=== PATIENT | female | born 1960 | race Caucasian/White ===

== ENCOUNTER 2019-10-30 15:11 | Outpatient (CLI) | payer OTHER, SELFPAY ==
[2019-10-30 15:58] LABS: Basophils Absolute Auto 0.1 K/mm3 (0.0-0.1); Basophils Percent Auto 1.1 % (0.2-1.2); Eosinophils Absolute Auto 0.3 K/mm3 (0-0.3); Eosinophils Percent Auto 5.5 % (0-4.4); Hematocrit 39.9 % (37.0-47.0); Hemoglobin 13.2 g/dL (12.0-15.0); Immature Granulocyte Absolute 0.01 K/mm3 (0.00-0.031); Immature Granulocyte Percent A 0.2 % (0-0.5); Lymphocytes Absolute Auto 1.25 K/mm3 (0.9-3.2); Lymphocytes Percent Auto 27.7 % (18.3-44.2); Mean Corpuscular HGB Conc 33.1 g/dl (32-36); Mean Corpuscular Hemoglobin 30.8 pg (26-34); Mean Corpuscular Volume 93.2 fl (80-100); Mean Platelet Volume 10.5 fl (7.4-10.4); Monocytes Absolute Auto 0.4 K/mm3 (0.1-0.6); Monocytes Percent Auto 7.8 % (2.6-8.5); Neutrophils Absolute Auto 2.6 K/mm3 (1.3-6.7); Neutrophils Percent Auto 57.7 % (45.5-73.1); Platelet Count Result 194 k/mm3 (150-375); Red Blood Count 4.28 M/mm3 (4.2-5.4); Red Cell Distribution Width 13.7 % (11.5-14.5); White Blood Count 4.5 K/mm3 (4.5-10.0)
[2019-10-30 16:46] LABS: Alanine Aminotransferase 15 U/L (4-35); Albumin Level 4.3 g/dL (3.5-5.1); Alkaline Phosphatase 82 U/L (38-126); Aspartate Amino Transferase 32 U/L (14-36); Bilirubin,Total 0.7 mg/dL (0.2-1.3); Blood Urea Nitrogen 22 mg/dL (7-17); Calcium 9.6 mg/dL (8.4-10.2); Carbon Dioxide 24 mmol/L (22-30); Chloride 107 mmol/L (98-107); Estimated Glomerular Filt Rate 56; Glucose 96 mg/dL (65-105); Potassium 4.4 mmol/L (3.4-5.0); Sodium 138 mmol/L (137-145)
[2019-11-02 06:44] LABS: CA 27.29 21 U/mL (<38)
== END 2019-10-30 15:12 | disposition home or self-care (01) ==
LOC: ANHLAB 15:16
PROVIDERS: PCP Family Medicine; Visit Provider Internal Medicine Hematology & Oncology
DX: C50.412 Malignant neoplasm of upper-outer quadrant of left female breast (principal); Z17.0 Estrogen receptor positive status [ER+]
CPT/HCPCS: 36415; 80053; 85025; 86300

== ENCOUNTER → 2020-03-03 10:21 | Outpatient (CLI) | payer OTHER, SELFPAY ==
--- NOTE | ~2020-03-03 | XR_ITS ---
EXAMINATION: XR chest 2V DATE: 03/03/2020 10:45 INDICATION: Dyspnea. TECHNIQUE: Frontal and lateral views of the chest were obtained. COMPARISON: Chest 2 views 01/27/2016 FINDINGS: The chest demonstrates clear lungs without pneumonia, pleural effusion, or pneumothorax. Th e heart size is normal. There are changes of aortic valve replacement. IMPRESSION: 1. No acute cardiopulmonary disease. Reviewed, dictated and finalized at location A.
== END ==
PROVIDERS: PCP Family Medicine; Visit Provider Family Medicine
DX: R06.00 Dyspnea, unspecified (principal)
CPT/HCPCS: 71046

== ENCOUNTER 2020-03-29 08:10 | Outpatient (CLI) | payer OTHER, SELFPAY ==
--- NOTE | 2020-04-03 13:52 | WPDPFTINT ---
PFT Interpretation PFT Interpretation: This PFT met all criteria for ATS standards and reproducibility FEV/FVC 76% FEV1 79% FVC 76% No bronchodilator challenge was given TLC 133% RV 173% RV/TLC 50% DLCO 61% when adjusted for alveolar volume but not adjusted for hemoglobin Flow volume loops were normal Impression: Hyperinflation, air trapping and mildly reduced diffusion capactiy but no significant obstruction seen on spirometry. Unfortunately this PFT interpretation is some what limited due to lack of bronchodilator challenge . This pattern may be suggestive of COPD or Asthma. Clinical correlation is advised.
== END 2020-03-29 08:11 | disposition home or self-care (01) ==
PROVIDERS: PCP Family Medicine; Visit Provider Family Medicine
DX: R06.00 Dyspnea, unspecified (principal)
CPT/HCPCS: 94375; 94726; 94729

== ENCOUNTER 2020-08-16 12:18 | Outpatient (CLI) | payer OTHER, SELFPAY ==
--- NOTE | ~2020-08-16 | NM_ITS ---
EXAMINATION: NM pulmonary perfusion DATE: 08/16/2020 13:42 INDICATION: Dyspnea. TECHNIQUE: 5.22 mCi Tc-99m MAA was administered intravenously for perfusion images. Scintigraphic im ages of the chest were obtained. COMPARISON: Chest 2 views 08/16/2020 FINDINGS: Perfusion images show small defects in left upper lobe and left lower lobe and right lower lobe. IMPRESSION: 1. Pulmonary embolism absent (very low probability). Reviewed, dictated and finalized at location A.
--- NOTE | ~2020-08-16 | XR_ITS ---
EXAMINATION: XR chest 2V DATE: 08/16/2020 13:41 INDICATION: Dyspnea. TECHNIQUE: Frontal and lateral views of the chest were obtained. COMPARISON: Chest 2 views 03/03/2020 FINDINGS: The chest demonstrates clear lungs without pneumonia, pleural effusion, or pneumothorax. Th e heart size is normal. There are changes of aortic valve replacement. Surgical clips in the right up per quadrant are likely from cholecystectomy. IMPRESSION: 1. No acute cardiopulmonary disease. Reviewed, dictated and finalized at location A.
== END 2020-08-16 12:19 | disposition home or self-care (01) ==
PROVIDERS: PCP Family Medicine; Visit Provider Internal Medicine Critical Care Medicine
DX: R06.00 Dyspnea, unspecified (principal)
CPT/HCPCS: 71046; 78580; A9540

== ENCOUNTER 2020-08-18 07:24 | Outpatient (CLI) | payer OTHER, SELFPAY ==
--- NOTE | 2020-08-18 07:41 | ECHO_ITS ---
Patient Info Name: Misty Ram Age: 60 years : 1960 Gender: Female Ht: 68 in Wt: 325 lbs BSA: 2.74 m2 HR: 68 bpm BP: 148 / 85 mmHg Heart Rhythm: Sinus Rhythm Exam Date: 08/18/2020 8:19 AM Exam Location: [facility] Patient Status: Outpatient Admit Date: 08/18/2020 Staff Ordering Physician: Azul Huff MD Datawarehouse Developer: Connie Santa RDCS Attending Provider: Azul Huff MD Exam Type: CA echo doppler color flow Study Info Indications - BIOPROSTHETIC AORTIC VALVE REPLACEMENT R06.00 - Dyspnea, unspecified Complete two-dimensional, color flow and Doppler transthoracic echocardiogram is performed. Summary 1. Complete two-dimensional, color flow and Doppler transthoracic echocardiogram is performed. 2. Normal left ventricular size with borderline concentric hypertrophy. Good systolic function of all segments with no segmental wall motion abnormalities. Calculated ejection fraction 57%, visual ejection fraction is 60-65%. Grade 2 diastolic dysfunction is present. 3. Left atrial chamber dimension is moderately enlarged. 4. There is mild to moderate not well visualized prosthetic aortic valve stenosis with a peak velocity of 307 cm/s, mean gradient of 16 mmHg, and aortic valve area of 1.0 cm2. I suspect the valve area is larger than this as the leaflets appeared pliable and free of significant calcification. Trace aortic insufficiency. 5. There is mild mitral valve regurgitation. 6. Mild pulmonary hypertension, estimated pulmonary arterial systolic pressure is 35 mmHg. 7. Normal sinus rhythm. Left Ventricle Left ventricular chamber dimension is normal. Left ventricular systolic function is normal, estimated at 60-65%. There is no increased left ventricular wall thickness. Left ventricular septal wall motion is normal. The left ventricular diastolic function is grade II diastolic dysfunction. Right Ventricle Right ventricular chamber dimension is normal. Right ventricular systolic function is normal. Left Atria Left atrial chamber dimension is moderately enlarged. Right Atria Right atrial chamber dimension is normal. Aortic Valve The not well visualized prosthetic aortic valve is trileaflet. There is no sclerosis of the not well visualized prosthetic aortic valve leaflets. There is mild to moderate not well visualized prosthetic aortic valve stenosis with a peak velocity of 307 cm/s, mean gradient of 16 mmHg, and aortic valve area of 1.0 cm2. I suspect the valve area is larger than this as the leaflets appeared pliable and free of significant calcification. Trace aortic insufficiency. There is no regurgitation of the not well visualized prosthetic aortic valve. Pulmonic Valve The pulmonic valve is normal. There is no pulmonic valve stenosis. There is no pulmonic regurgitation. Mitral Valve The mitral valve has thickened leaflets. There is no mitral valve stenosis. There is mild mitral valve regurgitation. Tricuspid Valve The tricuspid valve leaflets are normal. There is no significant tricuspid valve stenosis. There is trace tricuspid valve regurgitation. Mild pulmonary hypertension, estimated pulmonary arterial systolic pressure is 35 mmHg. Pericardium/Pleural The pericardium appears normal. There is no pericardial effusion. Inferior Vena Cava Normal inferior vena cava with >50% collapse upon inspiration consistent with Empty right atrial pressure, 10 mmHg. Aorta The aortic root size at the sinus of Valsalva is
--- NOTE | 2020-08-18 12:50 | WPDSIXMINUTE ---
Six Minute Walk This is a 6 minutes walk test. The test was performed and interpreted in accordance with the 2014 ERS/ATS task force guidelines. Findings: The patient's resting room air oxygen saturation measured by pulse oximetry was 98% and her heart rate was 66 bpm. Patient ambulated for 335 meters and oxygen saturation remained 94 to 98%. Heart rate at the end of the study was 109 bpm. There are no prior studies for comparison. Six Minute Walk Procedure Procedure Performed Pulmonary Stress Test (6 min walk)
== END 2020-08-18 07:25 | disposition home or self-care (01) ==
PROVIDERS: PCP Family Medicine; Visit Provider Internal Medicine Critical Care Medicine
DX: R06.00 Dyspnea, unspecified (principal); I27.20 Pulmonary hypertension, unspecified; I35.2 Nonrheumatic aortic (valve) stenosis with insufficiency
CPT/HCPCS: 93306; 94618

== ENCOUNTER 2020-09-17 09:47 | Outpatient (CLI) | payer OTHER, SELFPAY ==
--- NOTE | ~2020-09-17 | CT_ITS ---
EXAMINATION: CT chest high resolution wo sc EXAM DATE: 09/17/2020 10:04 INDICATION: R06.00 - Dyspnea, unspecified. Breast cancer. Shortness of breath. TECHNIQUE: Spiral CT of the chest without contrast. HRCT. Axial, coronal and sagittal images of the chest were reviewed. Coronal maximum intensity pixel images of chest reviewed. The dose-length prod uct (DLP) for this examination was 648.01 mGy-cm. The exposure was tailored according to patient siz e (auto mA exposure control), and iterative reconstruction (ASIR) was used as additional dose reducti on technique. Comparison is made to prior examination from 11/17/2015. FINDINGS: There is 4 mm noncalcified granuloma in the right lower lobe, unchanged. No intralobular s eptal thickening on the HRCT. There are no pleural or pericardial effusions. Tracheobronchial tree is patent. There is no mediastinal, hilar or axillary lymphadenopathy. There is no pneumothorax. The central pulmonary arteries are mildly dilated which can indicate elevated pulmonary arterial pre ssure, pulmonary arterial hypertension. Heart normal in size. Sternotomy wires and aortic valve re placement. Surgical changes along greater curvature of stomach, probable partial gastrectomy. There is thoracic spondylosis without osteoblastic or osteolytic lesions identified. IMPRESSION: 1. Mildly dilated pulmonary arteries, could indicate pulmonary arterial hypertension. 2. Right lower lobe granuloma. Reviewed, dictated and finalized at location A. IMPRESSION: 1. Mildly dilated pulmonary arteries, could indicate pulmonary arterial hypert ension. 2. Right lower lobe granuloma.
== END 2020-09-17 09:48 | disposition home or self-care (01) ==
LOC: ANHIMG 09:49
PROVIDERS: PCP Family Medicine; Visit Provider Internal Medicine Pulmonary Disease
DX: R06.00 Dyspnea, unspecified (principal); R91.8 Other nonspecific abnormal finding of lung field
CPT/HCPCS: 71250

== ENCOUNTER 2020-11-15 08:39 | Outpatient (CLI) | payer OTHER, SELFPAY ==
--- NOTE | 2020-11-17 17:39 | WPDMETH ---
Methacholine Procedure Perform Procedure Performed Methacholine Challenge Methacholine Challenge Methacholine Challenge: DOS: 11/15/2020 REQUESTING: Dr Hill REASON FOR TESTING: shortness of breath METHACHOLINE CHALLENGE This test was conducted per ATS guidelines. A previous study on 03/29/2020 showed normal spirometry with FEV1 79%, air trapping and DLCO 61%. The patient was exposed to sequentially increasing doses of methacholine in the usual manner. Baseline - saline Level 1 - 0.025 mg Level 2 - 0.25 mg Level 3 - 2.5 mg Level 4 - 10 mg Level 5 - 25 mg was not administered. The test was stopped after the 4th dose when FEV1 dropped by 21%. A decrease of 20% in the FEV1 is a positive result, and the testing is terminated. Flows returned to normal after bronchodilator was administered. IMPRESSION: This is a (+) methacholine challenge with the PD20 10 mg on the 4th level. The best use for a methacholine challenge is to rule out asthma. Clinical correlation is advised. Reéne Wade MD
== END 2020-11-15 08:40 | disposition home or self-care (01) ==
LOC: ANHPFT 08:40
PROVIDERS: PCP Family Medicine; Visit Provider Internal Medicine Pulmonary Disease
DX: R06.02 Shortness of breath (principal)
CPT/HCPCS: 94070; J7674

== ENCOUNTER 2020-12-13 19:31 | Emergency (ER) | payer OTHER, SELFPAY ==
[2020-12-13 19:34] VITALS: BP 183/74; PULSE 102; RESP 16; TEMP 39.2; O2SAT 97
[2020-12-13 19:54] LABS: Basophils Percent Auto 0.6 % (0.2-1.2); Eosinophils Percent Auto 0.6 % (0-4.4); Hemoglobin 13.8 g/dL (12.0-15.0); Immature Granulocyte Absolute 0.01 K/mm3 (0.00-0.031); Immature Granulocyte Percent A 0.3 % (0-0.5); Lymphocytes Absolute Auto 0.36 K/mm3 (0.9-3.2); Lymphocytes Percent Auto 10.8 % (18.3-44.2); Mean Corpuscular HGB Conc 32.9 g/dl (32-36); Mean Corpuscular Hemoglobin 31.4 pg (26-34); Mean Corpuscular Volume 95.7 fl (80-100); Monocytes Percent Auto 1.2 % (2.6-8.5); Neutrophils Absolute Auto 2.9 K/mm3 (1.3-6.7); Neutrophils Percent Auto 86.5 % (45.5-73.1); Platelet Count Result 150 k/mm3 (150-375); Red Blood Count 4.39 M/mm3 (4.2-5.4); Red Cell Distribution Width 13.3 % (11.5-14.5); White Blood Count 3.3 K/mm3 (4.5-10.0)
[2020-12-13 20:06] LABS: Anion Gap 9 mmol/L (8-16); Blood Urea Nitrogen 23 mg/dL (7-17); Calcium 9.6 mg/dL (8.4-10.2); Carbon Dioxide 25 mmol/L (22-30); Chloride 104 mmol/L (98-107); Estimated CRCL calculation 67 ml/min; Estimated Glomerular Filt Rate 46; Glucose 122 mg/dL (65-110); Potassium 4.3 mmol/L (3.4-5.0); Sodium 138 mmol/L (137-145)
[2020-12-13 20:27] LABS: Add Urine Microscopic? YES; Appearance Urine Turbid (Clear); Bilirubin Urine Negative (Negative); Blood Urine 3+ (Negative); Color Urine Amber (Yellow); Glucose Urine UA Negative (Negative); Ketones Urine Negative (Negative); Leukocyte Esterase Ur 3+ LEU/UL (Negative); Nitrate Urine Negative (Negative); Protein Urine 2+ mg/dL (Negative); RBC Urine 51-75 /hpf (0-2); Specific Grav Ur 1.013 (1.001-1.035); Squamous Epithelial Cell Urine Occasional /hpf (Few); Urobilinogen Urine Negative mg/dL (<2.0); WBC Clumps Urine Present /HPF; WBC Urine >75 /hpf
--- NOTE | 2020-12-13 23:32 | PC.NURSE ---
Pt up to desk stating that her fever broke and she is feeling much better. Pt reminded that she can return at any time if needed for re evaluation.
== END 2020-12-14 05:06 | disposition left against medical advice (07) ==
LOC: ANHED 23:39
PROVIDERS: Emergency Provider Emergency Medicine; PCP Family Medicine
DX: R50.9 Fever, unspecified (principal)
CPT/HCPCS: 36415; 80048; 81001; 85025; 87077; 87086; 87088; 87186; 99199

== ENCOUNTER 2021-03-08 09:59 | Outpatient (CLI) | payer OTHER, SELFPAY ==
--- NOTE | ~2021-03-08 | DEXA_ITS ---
Bone Density Report Name: Misty Ram Age: 61 Sex: Female Ethnicity: White Date of : 1960 Indication: osteopenia; monitoring treatment; height loss; prior fracture; cancer; asthma or emphysema; Referring Provider: Memo Adams Study: Bone densitometry was performed. Exam Date: March 08, 2021 Accession number: [id number] Bone Density: Region BMD T-score Z-score Classification AP Spine (L1-L4) 1.146 0.9 2.5 Normal Femoral Neck (Left) 0.720 -1.2 0.3 Osteopenia Total Hip (Left) 0.821 -1.0 0.1 Normal Total Hip Bilateral Avg 0.798 -1.2 -0.1 Osteopenia Femoral Neck (Right) 0.543 -2.8 -1.3 Osteoporosis Total Hip (Right) 0.774 -1.4 -0.3 Osteopenia World Health Organization criteria for BMD impression classify patients as: Normal (T-score at or above -1.0), Osteopenia (T-score between -1.0 and -2.5), or Osteoporosis (T-score at or below -2.5). 10-year Fracture Risk: FRAX not reported because: Some T-score for Spine Total or Hip Total or Femoral Neck at or below -2.5 Treated for osteoporosis Previous Exams: Region Exam Age BMD T-score BMD Change BMD Change Date g/cm2 vs Baseline vs Previous AP Spine(L1-L4) 03/08/2021 61 1.146 0.9 0.000(0.0%) 0.000(0.0%) 09/24/2017 57 1.146 0.9 Total Hip(Left) 03/08/2021 61 0.821 -1.0 -0.021(-2.5%) -0.021(-2.5%) 09/24/2017 57 0.842 -0.8 Total Hip(Right) 03/08/2021 61 0.774 -1.4 0.013(1.6%) 0.013(1.6%) 09/24/2017 57 0.762 -1.5 *Denotes significance at 95% confidence level, LSC for AP Spine = 0.022 g/cm2, LSC for Total Hip = 0.027 g/cm2 Clinical Information Provided by Patient: Has had a low trauma fracture Is being treated for osteoporosis Has used the following medications: Prolia (i.e. denosumab), Vitamin D, Calcium Has the following medical conditions: Asthma or Emphysema, Cancer Patient maximum height was 68 Menopause Age: 47 No regular weight bearing exercise Drinks caffeinated beverages Onset of menses at age 11 Number of children 3 Impression: The patient has established osteoporosis, based on the Right Femoral Neck T-score and the existence of a prior fracture. The patient has risk factors, including: previous fracture. No significant bone loss was observed. Discussion: PATIENT UNDER TREATMENT WITH NO SIGNIFICANT BMD LOSS SINCE LAST EXAM. In an untreated patient, BMD typically declines with age. A lack of decline or gain is usually a sign that treatment is efficac
== END 2021-03-08 10:00 | disposition home or self-care (01) ==
LOC: ANHIMG 10:01
PROVIDERS: PCP Family Medicine; Visit Provider Internal Medicine Hematology & Oncology
DX: M81.0 Age-related osteoporosis without current pathological fracture (principal); M85.852 Other specified disorders of bone density and structure, left thigh; M85.851 Other specified disorders of bone density and structure, right thigh
CPT/HCPCS: 77080

== ENCOUNTER 2021-04-01 02:29 | Observation (INO) | payer OTHER, SELFPAY ==
[2021-04-01] VITALS (11 sets, daily range): BP systolic 115–167; BP diastolic 55–84; PULSE 65–76; RESP 13–20; TEMP 36.2–37; O2SAT 96–100; BMI 49.2
--- NOTE | ~2021-04-01 | CT_ITS ---
EXAMINATION: CT abdomen pelvis w con INDICATION: Diffuse abdominal pain TECHNIQUE: Computed tomographic images of the abdomen and pelvis were obtained after the administrati on of 100 cc of Omnipaque 350 intravenous contrast. The dose-length product (DLP) was 1520.08 mGy-cm. Automated exposure control and iterative reconstruction technique were employed. COMPARISON: 03/19/2016 FINDINGS: Minimal dependent atelectasis is present in the lung bases. The heart size is normal. There is a small sliding hiatal hernia. Changes of gastric sleeve surgery are noted. The gallbladder is polanco rgically absent. A stable 5 mm nodule of the right lower lobe is consistent with old granulomatous di sease. The liver, spleen, pancreas, and adrenal glands are normal. The kidneys are unremarkable. No p athologically enlarged abdominal or pelvic lymph nodes are identified. There are multiple dilated loo ps of proximal small bowel. There appears to be a transition point in the pelvis beyond which the sma ll bowel is decompressed. No free intraperitoneal gas is identified. Surgical changes are noted in th e right lower quadrant. There is severe lumbar spondylosis. IMPRESSION: 1. Small bowel obstruction with likely transition in the pelvis.. Reviewed, dictated and finalized at location A. CHISE BUSINESS CONSULTANT
--- NOTE | ~2021-04-01 | XR_ITS ---
EXAMINATION: XR abdomen NG/feed tube insert INDICATION: Nasogastric tube placement TECHNIQUE: Portable AP KUB-NG at 0558 hours COMPARISON: CT from today FINDINGS: The tip of nasogastric tube is in the proximal stomach. The proximal side port is difficult to identify but likely in the distal esophagus based on the position of the tip. Changes of cardiac valve surgery are noted. IMPRESSION: 1. Tip of the nasogastric tube in the stomach with proximal side port likely in the distal esophagus. Consider advancing 3 to 5 cm. Reviewed, dictated and finalized at location A. N ANTHROPOLOGIST
--- NOTE | ~2021-04-01 | XR_ITS ---
EXAMINATION: XR sm bowel follow through DATE: 04/01/2021 12:53 INDICATION: Small bowel obstruction TECHNIQUE: Salad Chef radiograph(s) of the abdomen was/were obtained. Water-soluble contrast was administe red through the nasogastric tube, and sequential radiographs of the abdomen were obtained until contr ast was noted to be in the colon. No fluoroscopy was performed. COMPARISON: CT from today FINDINGS: The nasogastric tube is in the stomach. Transit time from the stomach to proximal colon was approximately one hour. Mildly dilated loops of small bowel persist in the left abdomen with normal caliber distal small bowel. IMPRESSION: 1. Dilated proximal small bowel with normal caliber distal small bowel and normal transit time. Findi ngs suggestive of partial bowel obstruction. Reviewed, dictated and finalized at location A. TILER IMPRESSION: 1. Dilated proximal small bowel with normal caliber distal small bowel and norm al transit time. Findings suggestive of partial bowel obstruction.
--- NOTE | 2021-04-01 02:52 | ED.ABDPAIN ---
HPI - Abdominal Pain General Chief Complaint: Abdominal Pain Stated Complaint: bowel blockage Time Seen by Provider: 04/01/21 02:34 Source: patient, RN notes reviewed and old records reviewed Mode of arrival: ambulatory Limitations: no limitations History of Present Illness HPI narrative: This is a 61 year old female with history of multiple abdominal surgeries and recurrent small bowel obstructions who presents for evaluation of diffuse abdominal pain. She developed pain around 8 pm last night, and her pain has gradually worsened. This started after eating dinner and desert. She has nausea but denies vomiting or diarrhea. She reports her last bowel movement was yesterday morning, and she has not passed gas tonight. She denies fever or chills. She tried Tums tonight without relief. She currently rates her pain as 8/10. This pain is similar to previous episodes of bowel obstructions. She states her last bowel obstruction was in 2015. Related Data Home Medications Medication Instructions Recorded Confirmed aspirin 81 mg tablet,delayed 81 mg PO DAILY 02/18/20 12/14/20 release calcium carb-ergocalciferol (vit 500 tablet PO BID tablet 02/18/20 12/14/20 D2) 500 mg (1,250 mg)-200 unit tablet denosumab 60 mg/mL subcutaneous 60 mg SUBCUT [id number] 02/18/20 12/14/20 syringe fiber tablet PO 02/18/20 12/14/20 letrozole 2.5 mg tablet 2.5 mg PO DAILY 02/18/20 12/14/20 melatonin 10 mg capsule mg PO DAILY PRN cap 02/18/20 12/14/20 metoprolol tartrate 25 mg tablet 25 mg PO BID tablet 02/18/20 12/14/20 spironolactone 25 mg tablet 25 mg PO BID 02/18/20 12/14/20 vitamin B complex 1 tablet PO DAILY 04/14/20 12/14/20 ttyxzvriyfgm-Hw-lrbw-minerals tablet PO 11/26/20 12/14/20 Allergies Allergy/AdvReac Type Severity Reaction Status Date / Time Penicillins Allergy Unknown hypertensive Verified 04/01/21 02:40 crisis, SOB Review of Systems Review of Systems: All systems reviewed & are unremarkable except as noted in HPI and below PMFSH Past Medical History Medical History Ankle contracture Chronic renal insufficiency, stage III (moderate) Essential hypertension Hernia Hypocalcemia Prediabetes Vitamin B 12 deficiency Vitamin D deficiency Surgical History Surgical History Aortic valve replaced H/O bilateral mastectomy H/O gastric bypass H/O lumpectomy History of laparoscopic appendectomy Previous section complicating Family History Family History Mother Family history of malignant neoplasm of breast in first degree relative Father Hypertension Cerebrovascular accident Other Family history of heart disease in male family member before age 55 Social History Social History Second hand tobacco smoke exposure: No Alcohol intake: never Substance use: never Substance use type: does not use Spiritual care concerns: No Exam Const: General: no acute distress and alert Nutritional Appearance: obese Orientation/consciousness: patient oriented x3 Eyes: EOM: EOMs intact bilaterally Resp: Effort & Inspection: normal respiratory effort and no retractions Auscultation: clear to auscultation bilaterally Cardio: Rate: regular rate Rhythm: regular rhythm Heart sounds: Murmur heart sound present systolic GI: GI Palp: Yes Soft to palpation, Yes Tenderness to palpation present (GI), No Guarding due to palpation present (GI) and No Rigid due to palpation Auscultation: absent bowel sounds Skin: General skin exam: normal color Rashes: no rashes Neuro: General: patient oriented x3, moves all extremities and CN's II-XI intact bilaterally Psych: Mental Status: mental status grossly normal Affect: normal affect Course Reevaluation(s) Reevaluation #1:
[2021-04-01] MEDS: ONDANSETRON INJ 4 MG/2 ML VIAL IV PUSH ×4 (03:00→13:26)
[2021-04-01] MEDS: MORPHINE SULFATE (*CRX) 4 MG/ML INJ IV PUSH ×3 (03:00→09:08)
[2021-04-01 03:27] LABS: Lactic Acid Reflex 1.4 mmol/L (0.7-2.1)
[2021-04-01 03:29] LABS: Add Urine Microscopic? YES; Appearance Urine Clear (Clear); Bacteria Urine Trace /hpf; Bilirubin Urine Negative (Negative); Blood Urine Negative (Negative); Color Urine Yellow (Yellow); Glucose Urine UA Negative (Negative); Ketones Urine Negative (Negative); Leukocyte Esterase Ur 1+ LEU/UL (Negative); Mucus Urine Rare /lpf; Nitrate Urine Negative (Negative); Protein Urine Negative (Negative); RBC Urine 0-2 /hpf (0-2); Specific Grav Ur 1.016 (1.001-1.035); Squamous Epithelial Cell Urine Rare /hpf (Few); Urobilinogen Urine Negative mg/dL (<2.0); WBC Urine 0-3 /hpf
[2021-04-01 03:30] LABS: Basophils Absolute Auto 0.1 K/mm3 (0.0-0.1); Basophils Percent Auto 1.1 % (0.2-1.2); Eosinophils Absolute Auto 0.2 K/mm3 (0-0.3); Eosinophils Percent Auto 3.2 % (0-4.4); Hematocrit 42.2 % (37.0-47.0); Hemoglobin 14.1 g/dL (12.0-15.0); Immature Granulocyte Absolute 0.01 K/mm3 (0.00-0.031); Immature Granulocyte Percent A 0.2 % (0-0.5); Lymphocytes Percent Auto 28.6 % (18.3-44.2); Mean Corpuscular HGB Conc 33.4 g/dl (32-36); Mean Corpuscular Hemoglobin 32.3 pg (26-34); Mean Corpuscular Volume 96.6 fl (80-100); Mean Platelet Volume 10.5 fl (7.4-10.4); Monocytes Absolute Auto 0.4 K/mm3 (0.1-0.6); Monocytes Percent Auto 8.2 % (2.6-8.5); Neutrophils Absolute Auto 3.1 K/mm3 (1.3-6.7); Neutrophils Percent Auto 58.7 % (45.5-73.1); Platelet Count Result 207 k/mm3 (150-375); Red Blood Count 4.37 M/mm3 (4.2-5.4); Red Cell Distribution Width 12.8 % (11.5-14.5); White Blood Count 5.2 K/mm3 (4.5-10.0)
[2021-04-01 04:19] LABS: Alanine Aminotransferase 16 U/L (4-35); Albumin Level 4.2 g/dL (3.5-5.1); Alkaline Phosphatase 73 U/L (38-126); Anion Gap 5 mmol/L (8-16); Aspartate Amino Transferase 28 U/L (14-36); Bilirubin,Total 0.5 mg/dL (0.2-1.3); Blood Urea Nitrogen 24 mg/dL (7-17); Calcium 9.7 mg/dL (8.4-10.2); Carbon Dioxide 28 mmol/L (22-30); Chloride 105 mmol/L (98-107); Estimated CRCL calculation 65 ml/min; Estimated Glomerular Filt Rate 45; Glucose 111 mg/dL (65-110); Lipase 208 U/L (23-300); Potassium 3.8 mmol/L (3.4-5.0); Sodium 138 mmol/L (137-145)
--- NOTE | 2021-04-01 08:31 | ADMGEN ---
This patient, Misty Ram, was admitted to [facility] Surg Room 312-01. Patient/family oriented to hospital policies and general routines including ID bracelet, bed and alarms, visiting hours, pain management, procedures, bathroom and other care routines, personal items, smoking policy, room service/diet, and visiting hours. Information on how to activate the Rapid Response Team has been discussed. Patient/Family are encouraged to report perceived risks to care and to ask questions if they do not understand what they are told or what they should do.
[2021-04-01] MEDS: SODIUM CHLORIDE 0.9% IV 1,000 ML 125 ML IV CONT (09:06)
--- NOTE | 2021-04-01 10:13 | PM.CNGS ---
Assessment and Plan Assessment and plan (1) Small bowel obstruction: Code(s): K56.609 - Unspecified intestinal obstruction, unspecified as to partial versus complete obstruction Status: Acute Assessment and Plan: cont conservative mgmt c NG decompression, bowel rest, will get SBS for further evaluation today (2) Morbid obesity due to excess calories: Code(s): E66.01 - Morbid (severe) obesity due to excess calories Status: Acute Assessment and Plan: lifestyle and dietary modifications History of Present Illness Consult details Consult date: 04/01/21 Reason for consult: abdominal pain Requesting physician: Robb Blair MD Narrative: The patient is a 61-year-old female that presented to the emergency department last night complaining of severe crampy abdominal pain. The patient reports the pain started after dinner and was associated with nausea and vomiting. The patient reports the pain is diffuse in nature, but most severe in the lower abdomen. The patient reports a extensive history of abdominal surgeries and multiple small-bowel obstructions. The patient reports she had bowel movement yesterday morning. Review of Systems Constitutional: Constitutional: Denies anorexia, Denies chills, Reports fatigue, Denies fever(s), Reports lethargy, Denies malaise, Reports poor appetite, Reports weakness, Denies weight gain and Denies weight loss Eyes: Eyes: Reports no additional eye complaints ENT: Reports system reviewed and no additional complaints, except as documented Cardiovascular: Cardiovascular: Reports no additional cardiovascular complaints Respiratory: Respiratory: Reports no additional respiratory complaints Gastrointestinal: Gastrointestinal: Reports as per HPI, Reports abdominal pain, Reports belching, Reports bloating, Denies change in bowel habits, Denies change in stool character, Denies constipation, Reports GI cramping, Reports dyspepsia, Denies diarrhea, Denies loose stools, Reports nausea, Reports vomiting and Denies hematemesis Genitourinary: Genitourinary: Reports no additional female genitourinary complaints Musculoskeletal: Musculoskeletal: Reports no additional musculoskeletal complaints Integumentary/Breasts: Skin/Breast: Reports system reviewed and no additional complaints, except as docu Neurologic: Reports system reviewed and no additional complaints, except as documented Psychiatric: Psychiatric: Reports no additional psychiatric complaints Endocrine: Endocrine: Reports no additional endocrine complaints Hematologic/Lymphatic: Hematologic/Lymphatic: Reports no additional hematologic/lymphatic complaints Allergic/Immunologic: Allergic/Immunologic: Reports no additional allergic/immunologic complaints [facility] Past Medical History Medical History Ankle contracture Chronic renal insufficiency, stage III (moderate) Essential hypertension Hernia Hypocalcemia Prediabetes Vitamin B 12 deficiency Vitamin D deficiency Surgical History Surgical History Aortic valve replaced H/O bilateral mastectomy H/O gastric bypass H/O lumpectomy History of laparoscopic appendectomy Previous section complicating Family History Family History Mother Family history of malignant neoplasm of breast in first degree relative Father Hypertension Cerebrovascular accident Other Family history of heart disease in male family member before age 55 Social History Social History Smoking status: Never smoker Second hand tobacco smoke exposure: No Alcohol intake: never Substance use: never Substance use type: does not use Spiritual care concerns: No (Gnosticist) Meds Home Medications and Allergies Home Medications Medication Instru
--- NOTE | 2021-04-01 14:11 | PM.IMHP ---
H&P: HPI History of Present Illness Date/Time: 04/01/21 14:11 ED-HPI: narrative: This is a 61 year old female with history of multiple abdominal surgeries and recurrent small bowel obstructions who presents for evaluation of diffuse abdominal pain. She developed pain around 8 pm last night, and her pain has gradually worsened. This started after eating dinner and desert. She has nausea but denies vomiting or diarrhea. She reports her last bowel movement was yesterday morning, and she has not passed gas tonight. She denies fever or chills. She tried Tums tonight without relief. She currently rates her pain as 8/10. This pain is similar to previous episodes of bowel obstructions. She states her last bowel obstruction was in 2016. 04/01/2021 Interval History: CT scan abdomen showed a small-bowel obstruction with likely transition in the pelvis, patient is on NG tube, not passing any gas seen by general surgery recommended conservative management with NG tube decompression, NPO and will continue to monitor, patient denies any fever or chills. patient is admitted inpatient Chief Complaint: abdominal pain Review of Systems Review of Systems: All systems reviewed & are unremarkable except as noted in HPI and below PMFSH Past Medical History Medical History Ankle contracture Chronic renal insufficiency, stage III (moderate) Essential hypertension Hernia Hypocalcemia Prediabetes Vitamin B 12 deficiency Vitamin D deficiency Surgical History Surgical History Aortic valve replaced H/O bilateral mastectomy H/O gastric bypass H/O lumpectomy History of laparoscopic appendectomy Previous section complicating Family History Family History Mother Family history of malignant neoplasm of breast in first degree relative Father Hypertension Cerebrovascular accident Other Family history of heart disease in male family member before age 55 Social History Social History Smoking status: Never smoker Second hand tobacco smoke exposure: No Alcohol intake: never Substance use: never Substance use type: does not use Spiritual care concerns: No (Taoism) Meds Home Medications and Allergies Home Medications Medication Instructions Recorded Confirmed Type albuterol sulfate 90 mcg/actuation 1 inh INHALATION Q4H PRN #1 device 02/18/20 04/01/21 Rx aerosol inhaler aspirin 81 mg tablet,delayed 81 mg PO DAILY 02/18/20 04/01/21 History release calcium carb-ergocalciferol (vit 1 tablet PO BID tablet 02/18/20 04/01/21 History D2) 500 mg (1,250 mg)-200 unit tablet denosumab 60 mg/mL subcutaneous 60 mg SUBCUT [id number] 02/18/20 04/01/21 History syringe fiber 2 tablet PO DAILY 02/18/20 04/01/21 History letrozole 2.5 mg tablet 2.5 mg PO DAILY 02/18/20 04/01/21 History melatonin 10 mg capsule 10 mg PO HS cap 02/18/20 04/01/21 History metoprolol tartrate 25 mg tablet 25 mg PO BID tablet 02/18/20 04/01/21 History spironolactone 25 mg tablet 25 mg PO BID 02/18/20 04/01/21 History xvfuifrdswoy-Wx-zbyh-minerals 1 tablet PO DAILY 11/26/20 04/01/21 History triamcinolone acetonide 0.1 % 1 applic TOPICAL BID PRN #80 g 12/06/20 04/01/21 Rx topical cream Allergies Allergy/AdvReac Type Severity Reaction Status Date / Time Penicillins Allergy Unknown hypertensive Verified 04/01/21 08:51 crisis, SOB adhesive tape AdvReac Intermediate Redness of Verified 04/01/21 08:51 Skin Vital Signs Vital Signs - 24 hr 04/01/21 02:31 04/01/21 02:37 04/01/21 03:31 Temperature 97.2 F L Pulse Rate 75 76 70 Respiratory Rate 20 16 15 Blood Pressure 167/84 H 167/84 H 129/74 Pulse Oximetry 100 100 98 04/01/21 03:35 04/01/21 05:27 04/01/21 06:01 Temperature P
[2021-04-01] MEDS: HEPARIN SODIUM 5,000 UNITS/ML VIAL 5000 UNITS SUB-Q (20:45)
[2021-04-02 05:51] VITALS: BP 145/69; PULSE 76; RESP 18; TEMP 36.8; O2SAT 96
[2021-04-02 07:50] LABS: Alanine Aminotransferase 12 U/L (4-35); Albumin Level 3.5 g/dL (3.5-5.1); Alkaline Phosphatase 58 U/L (38-126); Anion Gap 6 mmol/L (8-16); Aspartate Amino Transferase 26 U/L (14-36); Blood Urea Nitrogen 17 mg/dL (7-17); Calcium 9.1 mg/dL (8.4-10.2); Carbon Dioxide 26 mmol/L (22-30); Chloride 103 mmol/L (98-107); Estimated CRCL calculation 71 ml/min; Estimated Glomerular Filt Rate 50; Glucose 90 mg/dL (65-110); Magnesium 1.6 mg/dL (1.6-2.3); Potassium 3.6 mmol/L (3.4-5.0); Sodium 135 mmol/L (137-145)
[2021-04-02 08:00] LABS: Basophils Percent Auto 0.8 % (0.2-1.2); Eosinophils Absolute Auto 0.2 K/mm3 (0-0.3); Eosinophils Percent Auto 5.5 % (0-4.4); Hemoglobin 11.7 g/dL (12.0-15.0); Immature Granulocyte Absolute 0.01 K/mm3 (0.00-0.031); Immature Granulocyte Percent A 0.3 % (0-0.5); Lymphocytes Absolute Auto 0.92 K/mm3 (0.9-3.2); Lymphocytes Percent Auto 24.3 % (18.3-44.2); Mean Corpuscular HGB Conc 33.4 g/dl (32-36); Mean Corpuscular Volume 95.6 fl (80-100); Mean Platelet Volume 10.7 fl (7.4-10.4); Monocytes Absolute Auto 0.4 K/mm3 (0.1-0.6); Monocytes Percent Auto 9.2 % (2.6-8.5); Neutrophils Absolute Auto 2.3 K/mm3 (1.3-6.7); Neutrophils Percent Auto 59.9 % (45.5-73.1); Platelet Count Result 166 k/mm3 (150-375); Red Blood Count 3.66 M/mm3 (4.2-5.4); Red Cell Distribution Width 12.3 % (11.5-14.5); White Blood Count 3.8 K/mm3 (4.5-10.0)
[2021-04-02] MEDS: HEPARIN SODIUM 5,000 UNITS/ML VIAL 5000 UNITS SUB-Q (09:05)
[2021-04-02] MEDS: MAGNESIUM OXIDE 400 MG TABLET PO (09:12)
[2021-04-02] MEDS: POTASSIUM CHLORIDE 20 MEQ TABLET 40 MEQ PO (09:12)
--- NOTE | 2021-04-02 11:44 | PM.PNGS ---
Progress Note: A&P Assessment and Plan (1) Small bowel obstruction: Code(s): K56.609 - Unspecified intestinal obstruction, unspecified as to partial versus complete obstruction Status: Acute Assessment and Plan: resolved, exam benign, multiple BMs, ADAT, home if geno diet Subjective Subjective Date/Time Seen: 04/02/21 11:44 feels much better, geno full liquid diet, multiple BMs Review of Systems Review of Systems: All systems reviewed & are unremarkable except as noted in HPI and below Exam Const: General: cooperative, comfortable and no acute distress Orientation/consciousness: patient oriented x3 Resp: Effort & Inspection: normal respiratory effort Auscultation: clear to auscultation bilaterally Cardio: Rate: regular rate Rhythm: regular rhythm GI: Inspection: normal to inspection and non-distended GI Palp: Yes Soft to palpation, No Tenderness to palpation present (GI), No Guarding due to palpation present (GI) and No Rigid due to palpation Objective Data Vital Signs Vital Signs: Vital Signs - 24 hr 04/01/21 14:00 04/01/21 21:43 04/01/21 22:30 Temperature 36.4 C L 37.0 C Pulse Rate 65 72 Respiratory Rate 20 18 Blood Pressure 128/55 L 115/56 L Pulse Oximetry 100 96 97 04/02/21 05:51 Temperature 36.8 C Pulse Rate 76 Respiratory Rate 18 Blood Pressure 145/69 H Pulse Oximetry 96 Intake/Output Intake/Output: Intake & Output 03/30/21 03/31/21 04/01/21 04/02/21 23:59 23:59 23:59 23:59 Intake Total 160 1030 Balance 160 1030 Meds/Results Medications: Active Medications Generic Name Dose Route Start Last Admin Trade Name Freq PRN Reason Stop Dose Admin Heparin Sodium (Porcine) 5,000 units 04/01/21 21:00 04/02/21 09:05 Heparin Sodium 5,000 Units/Ml Vial SUB-Q 5,000 units Q12HR TOSHA Administration Hydromorphone HCl 1 mg 04/01/21 11:34 Hydromorphone Hcl Inj (*Crx) 1 Mg/Ml Syr IV PUSH Q1HR PRN Pain Rated 7-10 Sodium Chloride 1,000 mls @ 125 mls/hr 04/01/21 05:40 04/01/21 09:06 Normal Saline Iv IV CONT 125 mls/hr .Q8H TOSHA Administration Magnesium Oxide 400 mg 04/02/21 09:00 04/02/21 09:12 Magnesium Oxide 400 Mg Tablet PO 400 mg QAM TOSHA Administration Ondansetron HCl 4 mg 04/01/21 05:40 04/01/21 13:26 Ondansetron Inj 4 Mg/2 Ml Vial IV PUSH 4 mg Q4H PRN Administration Nausea Radiology Results: ITS Impressions Abdomen X-Ray 04/01/21 09:16 IMPRESSION: 1. Tip of the nasogastric tube in the stomach with proximal side port likely in the distal esophagus. Consider advancing 3 to 5 cm. Abdomen/Pelvis CT 04/01/21 09:52 IMPRESSION: 1. Small bowel obstruction with likely transition in the pelvis.. Small Bowel X-Ray 04/01/21 12:56 IMPRESSION: 1. Dilated proximal small bowel with normal caliber distal small bowel and normal transit time. Findings suggestive of partial bowel obstruction. Labs Labs: Laboratory Results - last 24 hr 04/02/21 04/02/21 06:33 06:33 WBC 3.8 L RBC 3.66 L Hgb 11.7 L Hct 35.0 L MCV 95.6 MCH 32.0 MCHC 33.4 RDW 12.3 Plt Count 166 MPV 10.7 H Immature Gran % (Auto) 0.3 Neut % (Auto) 59.9 Lymph % (Auto) 24.3 [place] % (Auto) 9.2 H Eos % (Auto) 5.5 H Baso % (Auto) 0.8 Lymph # (Auto) 0.92 [place] # (Auto) 0.4 Eos # (Auto) 0.2 Baso # (Auto) 0.0 Abs Immat Gran (auto) 0.01 Absolute Neuts (auto) 2.3 Absolute Nucleated RBC 0.0 Nucleated RBC % 0.0 Sodium 135 L Potassium 3.6 Chloride 103 Carbon Dioxide 26 Anion Gap 6 L BUN 17 Creatinine 1.10 H Estim Creat Clear Calc 71 Estimated GFR 50 L Glucose 90 Calcium 9.1 Magnesium 1.6 Total Bilirubin 1.0 AST 26 ALT 12 Alkaline Phosphatase 58 Total Protein 6.0 L Albumin 3.5 Quality VTE Prophylaxis VTE prophylaxis: pharmacologic ordered
--- NOTE | 2021-04-02 13:13 | PM.DS ---
DS: Admitting Diagnosis Discharge Date 04/02/2021 Admitting Diagnosis abdominal pain DS: Discharge Diagnosis Discharge Diagnosis (1) Small bowel obstruction: Code(s): K56.609 - Unspecified intestinal obstruction, unspecified as to partial versus complete obstruction Status: Acute Assessment and Plan: 04/01/2021 Interval History: CT scan abdomen showed a small-bowel obstruction with likely transition in the pelvis, patient is on NG tube, not passing any gas seen by general surgery recommended conservative management with NG tube decompression, NPO and will continue to monitor, patient denies any fever or chills. (2) Prediabetes: Code(s): R73.03 - Prediabetes Status: Acute Assessment and Plan: currently patient is NPO will monitor with sliding scale (3) Chronic renal insufficiency, stage III (moderate): Code(s): N18.30 - Chronic kidney disease, stage 3 unspecified Status: Acute Assessment and Plan: acute on chronic kidney disease most likely secondary to poor p.o. intake will gently hydrate the patient and monitor kidney function (4) Essential hypertension: Code(s): I10 - Essential (primary) hypertension Status: Acute Assessment and Plan: currently patient NPO holding p.o. medication will monitor and plan (5) Morbid obesity due to excess calories: Code(s): E66.01 - Morbid (severe) obesity due to excess calories Status: Acute Assessment and Plan: will consult dietitian DS: Summary Hospital Course Reason for hospitalization: ED-HPI: narrative: This is a 61 year old female with history of multiple abdominal surgeries and recurrent small bowel obstructions who presents for evaluation of diffuse abdominal pain. She developed pain around 8 pm last night, and her pain has gradually worsened. This started after eating dinner and desert. She has nausea but denies vomiting or diarrhea. She reports her last bowel movement was yesterday morning, and she has not passed gas tonight. She denies fever or chills. She tried Tums tonight without relief. She currently rates her pain as 8/10. This pain is similar to previous episodes of bowel obstructions. She states her last bowel obstruction was in 2015. 04/01/2021 Interval History: CT scan abdomen showed a small-bowel obstruction with likely transition in the pelvis, patient is on NG tube, not passing any gas seen by general surgery recommended conservative management with NG tube decompression, NPO and will continue to monitor, patient denies any fever or chills. Hospital Course: patient had a small-bowel follow-through yesterday and after that patient has had few BMs, today patient states feeling much better been able to tolerate her diet denies any abdominal pain nausea or vomiting, seen by General surgery okay to discharge patient Status at Discharge Functional status at discharge: independent ambulation Overall status at discharge: patient is back to baseline Time Spent with Patient Time attestation: Total time spent providing and/or coordinating discharge services: Patient was seen and examined at the time of the discharge Condition at discharge is stable Code status: Full code. Time spent preparing discharge summary, discharge medications, discussing discharge planning with supportive employment case manager and patient is 35 minutes. Time spent: Greater than 30 minutes Exam Narrative: morbidly obese Patient is comfortable, NAD HEENT: eyes are clear and none icteric LUNGS: normal respiratory effort HEART: RR S1S2 ABD: distended Lower extremities: no edema SKIN: nonjaundiced Neuro: grossly intact. DS: Data Data Completed and Pending Labs on day of discharge: Labs from last 24 hours 04/02/21 04/02/21 06:33 06:33 WBC 3.8 L RBC 3.66 L Hgb 11.7 L Hct 35.0 L MCV 95.6 MCH 32.0 MCHC 33.4 RDW 12.3 Plt Count 166 MPV 10.7 H Immature Gran % (Auto) 0.3 Thiago
[2021-04-02 13:58] VITALS: BP 139/71; PULSE 74; RESP 14; TEMP 36.9; O2SAT 97
== END 2021-04-02 14:10 | disposition home or self-care (01) ==
LOC: ANHED 05:45 → ANH3MEDSUR 07:10
PROVIDERS: Admitting Provider Internal Medicine; Emergency Provider General Practice; PCP Family Medicine; Visit Provider Family Medicine
DX: K56.609 Unspecified intestinal obstruction, unspecified as to partial versus complete obstruction (principal); R73.03 Prediabetes; I12.9 Hypertensive chronic kidney disease with stage 1 through stage 4 chronic kidney disease, or unspecified chronic kidney disease; N18.30 Chronic kidney disease, stage 3 unspecified; E66.01 Morbid (severe) obesity due to excess calories; Z68.42 Body mass index [BMI] 45.0-49.9, adult
CPT/HCPCS: 36415; 74177; 74250; 80053; 81001; 83605; 83690; 83735; 85025; 96372; 96374; 96375; 96376; 99285; A9270; G0378; J1644; J2270; J2405; J7030; Q9967

== ENCOUNTER 2021-04-08 10:51 | Emergency (ER) | payer OTHER, SELFPAY ==
[2021-04-08 11:13] VITALS: BP 164/75; PULSE 62; RESP 18; TEMP 36.4; O2SAT 99
[2021-04-08 12:55] VITALS: BP 156/65; PULSE 62; RESP 16; TEMP 36.7; O2SAT 100
--- NOTE | 2021-04-08 14:49 | PC.NURSE ---
states she is leaving. will return if symptoms worsen or change.
== END 2021-04-09 02:19 | disposition left against medical advice (07) ==
PROVIDERS: Emergency Provider Emergency Medicine; PCP Family Medicine
DX: Z53.21 Procedure and treatment not carried out due to patient leaving prior to being seen by health care provider (principal)
CPT/HCPCS: 99199

== ENCOUNTER 2021-04-18 14:45 | Outpatient (CLI) | payer OTHER, SELFPAY ==
--- NOTE | ~2021-04-18 | XR_ITS ---
XR knee RT 3V 04/18/2021 15:04 Indication: Right knee pain Procedure: 3 views right knee Comparison: No prior studies for comparison. Findings: Moderate osteoarthritis of the right knee. No fracture, subluxation or dislocation. No sign ificant joint effusion. No foreign bodies. Impression: 1: Moderate tricompartment osteoarthritis of the right knee. Reviewed, dictated and finalized at location A. R ASSOCIATE Impression: 1: Moderate tricompartment osteoarthritis of the right knee.
== END 2021-04-18 14:46 | disposition home or self-care (01) ==
LOC: ANHIMG 14:50
PROVIDERS: PCP Family Medicine; Visit Provider Family Medicine
DX: M17.11 Unilateral primary osteoarthritis, right knee (principal)
CPT/HCPCS: 73562

== ENCOUNTER 2021-07-28 08:00 | Outpatient (RCR) | payer OTHER, SELFPAY ==
--- NOTE | 2021-05-27 09:34 | PTOPEVAL ---
Thank you for referring Misty Ram to [facility].? The patient is scheduled to be seen for therapy? 2 x/week for 8 weeks. Please review, sign, date and return this plan of care DAVE. I agree with and certify that the following plan of care is medically necessary. Referring Physician Date Attending Provider: Velma Patterson MD Diagnosis galindo knee pain Onset 6 months Additional Evaluation Detail 1 Step to enter and 3 steps out back door. Subjective Information Reports her right knee started Query Text:As Reported By Patient/ hurting 6 months ago, then Family progressed to galindo knee pain. Reports the pain is more in the muscles behind the knees. She is riding stationary bike 3x/wk for 15-20 min. Does not perform stretching. Reports increased pain with standing, slightly with walking, steps, squatting, rn iv therapy, lifting and carrying task, transfers from lower surfaces. She is unable to negotiate steps without railing Occasionally feels like a rubber band with sharp pain. Denies any falls. Denies use of cane. Diagnostic Tests X-Rays For This Problem Yes: OA of knee Previous Treatments Previous Treatments For This Problem no Pain Assessment Left Knee(s) Reported Pain Level 0 Pain Description Sharp,Soreness,Tender on Palpation,Tightness Pain Frequency Chronic Lowest Pain Intensity 0 Greatest Pain Intensity 6 Pain Aggravating Factors ADL's,Bending,Exercise/ Activity,Lifting,Stair Climbing,Walking,Weight Bearing/Standing Right Knee(s) Reported Pain Level 0 Pain Description Sharp,Soreness,Tender on Palpation,Tightness Pain Frequency Chronic Lowest Pain Intensity 0 Greatest Pain Intensity 4 Pain Aggravating Factors ADL's,Bending,Exercise/ Activity,Lifting,Stair Climbing,Walking,Weight Bearing/Standing Lower Extremity Range of Motion Knee Range of Motion Right Knee Flexion Range of Motion - Active 105 Knee Extension Range of Motion - Active
--- NOTE | 2021-07-25 08:34 | PCPTNOTE ---
Patient called & cancelled scheduled appointment this date due to being sick.
--- NOTE | 2021-07-28 15:06 | PTOPEVAL ---
Physical Therapy Discharge Note Thank you for referring Misty Ram to [facility].? Misty has attended 17 therapy visits to address her LE impairments. As a result of skilled therapy services she demonstrates improved knee motion, leg strength and functional mobility. She remains limited with progress and functional mobility due to her pain. She has reached maximal potential with skilled therapy services at this time. Will DC skilled therapy services. Please review, sign, date and return this discharge summary DAVE. I agree with and certify that the following plan of care is medically necessary. Referring Physician Date Attending Provider: Velma Patterson MD Diagnosis galindo knee pain Onset 6 months Additional Evaluation Detail 1 Step to enter and 3 steps out back door. Subjective Information She has increased pain and Query Text:As Reported By Patient/ symptoms today. She is having Family issues with sit<>stand with correct technique. Cont to have increased left knee pain at rest and with activities. She is riding stationary bike 3x/wk for 15-20 min. She is performing some of her HEP daily. Reports increased pain with sit<>stand movement, prolonged standing, walking, steps, squatting, insulation worker apprentice, lifting and carrying task. She does not feel therapy is making a big difference with her pain to tolerance with activities. Pain Assessment Left Knee(s) Reported Pain Level 6 Pain Description Tender on Palpation,Tightness Pain Frequency Chronic Lowest Pain Intensity 4 Greatest Pain Intensity 7 Pain Aggravating Factors ADL's,Bending,Exercise/ Activity,Lifting,Stair Climbing,Walking,Weight Bearing/Standing Right Knee(s) Reported Pain Level 4 Pain Description Aching Pain Frequency Chronic Lowest Pain Intensity 0 Greatest Pain Intensity 4 Pain Aggravating Factors ADL's,Bending,Exercise/ Activity,Lifting,Stair Climbing,Walking,Weight Bearing/Standing Lower Extremity Range of Motion Knee Range of Motion Right Knee Flexion Range of Motion - Active 105 Knee Extension Range of Motion - Active 0 Knee Range of
== END 2021-07-29 09:29 | disposition home or self-care (01) ==
LOC: ANHPT 08:00
PROVIDERS: PCP Family Medicine; Visit Provider Family Medicine
DX: M25.561 Pain in right knee (principal); M25.562 Pain in left knee
CPT/HCPCS: 97035; 97110; 97112; 97140; 97162; 97530

== ENCOUNTER 2021-11-24 18:07 | Emergency (ER) | payer OTHER, SELFPAY ==
--- NOTE | ~2021-11-24 | XR_ITS ---
EXAMINATION: XR shoulder RT min 2V DATE: 11/24/2021 18:53 INDICATION: Right shoulder injury. TECHNIQUE: 3 views of right shoulder were obtained. COMPARISON: None. FINDINGS: There is a comminuted fracture of proximal right humerus including components at the surgic al neck and greater tuberosity. There is displacement of the greater tuberosity fracture fragment. Th e views of the proximal humerus demonstrate similar orientation, which decreases sensitivity. There i s severe osteoarthritis of acromioclavicular joint. There is at least mild osteoarthritis of glenohum eral joint. Median sternotomy wires are noted. IMPRESSION: 1. Comminuted fracture of proximal right humerus. 2. Polyarticular osteoarthritis. Reviewed, dictated and finalized at location A.
--- NOTE | ~2021-11-24 | CT_ITS ---
EXAMINATION: CT facial bones wo con DATE: 11/24/2021 19:00 INDICATION: Left infraorbital injury. TECHNIQUE: Computed tomography (CT) of the facial bones and maxillofacial region was performed withou t intravenous contrast. Automated exposure control and iterative reconstruction technique were employ ed. The dose-length product was 263.23 mGy-cm. COMPARISON: None. FINDINGS: There is left cheek soft tissue swelling. There is leftward deviation of the nasal septum. No fracture. There is a mucous retention cyst in left maxillary sinus. The orbits are normal. IMPRESSION: 1. No fracture. Reviewed, dictated and finalized at location A. IMPRESSION: 1. No fracture.
--- NOTE | ~2021-11-24 | XR_ITS ---
EXAMINATION: XR elbow RT min 3V DATE: 11/24/2021 19:40 INDICATION: Right elbow injury and tenderness. TECHNIQUE: 4 views of right elbow were obtained. COMPARISON: None. FINDINGS: Bone alignment is normal. No fracture. There is mild elbow joint osteoarthritis. There is a n enthesophyte at lateral humeral epicondyle. No elbow joint effusion. IMPRESSION: 1. Mild elbow joint osteoarthritis. Reviewed, dictated and finalized at location A.
--- NOTE | ~2021-11-24 | CT_ITS ---
EXAMINATION: CT brain wo con DATE: 11/24/2021 19:00 INDICATION: Head injury. Fall. TECHNIQUE: Computed tomography (CT) of the head was performed without intravenous contrast. The mA wa s adjusted according to patient size. Iterative reconstruction technique was employed. The dose-lengt h product was 681.00 mGy-cm. COMPARISON: None FINDINGS: There is no intracranial hemorrhage, acute infarction, or abnormal intracranial mass lesion . There are scattered areas of low attenuation in the cerebral white matter, which is within normal l imits for the patient's age. The ventricles are normal in size. The orbits are normal. There is mild mucosal thickening in the paranasal sinuses. The mastoid air cells are normal. There is left cheek so ft tissue swelling. IMPRESSION: 1. Normal aging brain. Reviewed, dictated and finalized at location A. IMPRESSION: 1. Normal aging brain.
[2021-11-24 18:17] VITALS: BP 181/66; PULSE 65; RESP 14; O2SAT 100
--- NOTE | 2021-11-24 18:18 | ED.FALL ---
HPI - Fall General Chief Complaint: Fall Stated Complaint: fall Time Seen by Provider: 11/24/21 18:10 History of Present Illness HPI Narrative: Patient is a 61-year-old female with PMHx obesity, history of gastric sleeve, breast cancer, HTN, aortic valve replacement, here for evaluation of right arm pain after a fall 20 minutes prior to arrival. Patient was upstairs walking her who had just had surgery here, when she accidentally tripped on his walker, and fell forward. States that she struck the left side of her face against the floor, and also landed on her right shoulder. No loss of consciousness. Since the accident she has had pain in both of those areas. Denies any numbness or tingling in her right upper extremity, no weakness, no visual changes. Related Data Home Medications Medication Instructions Recorded Confirmed aspirin 81 mg tablet,delayed 81 mg PO DAILY 02/18/20 11/11/21 release calcium carb-ergocalciferol (vit 1 tablet PO BID 02/18/20 11/11/21 D2) 500 mg (1,250 mg)-200 unit tablet denosumab 60 mg/mL subcutaneous 60 mg subcut [id number] 02/18/20 11/11/21 syringe (Prolia) fiber 2 tablet PO DAILY 02/18/20 11/11/21 letrozole 2.5 mg tablet 2.5 mg PO DAILY 02/18/20 11/11/21 melatonin 10 mg capsule 10 mg PO HS 02/18/20 11/11/21 metoprolol tartrate 25 mg tablet 25 mg PO BID 02/18/20 11/11/21 spironolactone 25 mg tablet 25 mg PO BID 02/18/20 11/11/21 [id number]-minerals 1 tablet PO DAILY 11/26/20 11/11/21 (Multiple Vitamin, Womens tablet) Allergies Allergy/AdvReac Type Severity Reaction Status Date / Time Cephalosporins Allergy Mild N/A Verified 11/11/21 13:09 Penicillins Allergy Unknown hypertensive Verified 11/11/21 13:09 crisis, SOB adhesive tape AdvReac Intermediate Redness of Verified 11/11/21 13:09 Skin Review of Systems Review of Systems: Gen: Denies fevers or chills Eyes: Denies eye pain or visual change ENT: Denies congestion Respiratory: Denies shortness of breath or cough CV: Denies chest pain or palpitations GI: Denies abdominal pain nausea, emesis or diarrhea : denies burning, urgency, frequency or hematuria Musculoskeletal: Reports right upper extremity pain. Neuro: Reports headache. Denies numbness, tingling, weakness or focal weakness Skin: Reports contusion Except as documented, all other systems reviewed and negative PMFSH Past Medical History Medical History Ankle contracture Arthritis Broken ankle Chronic renal insufficiency, stage III (moderate) Essential hypertension Hernia History of pulmonary embolism (~2015) Hypocalcemia Prediabetes Right knee pain Vitamin B 12 deficiency Vitamin D deficiency Surgical History Surgical History Aortic valve replaced (~11/05/15) H/O bilateral mastectomy (~12/21/17) H/O gastric bypass (~02/15/15) H/O hernia repair x5 H/O lumpectomy (~12/03/17) History of laparoscopic appendectomy Hx of cholecystectomy (~08/19/14) Previous section complicating x3 Family History Family History Mother Family history of malignant neoplasm of breast in first degree relative Cancer Father Hypertension Cerebrovascular accident Other Family history of heart disease in male family member before age 55 Social History Social History Smoking status: Never smoker Second hand tobacco smoke exposure: No Alcohol intake: never Substance use: never Substance use type: does not use Spiritual care concerns: No (Jainism) Exam Narrative: APPEARANCE: Well appearing, no pain in distress, obese. Head: Contusion over left eyebrow. EYES: PERRLA/EOMI, conjunctivae clear NOSE: No nasal drainage EARS: External ear normal in appearance THROAT: Oropharynx
[2021-11-24] MEDS: ACETAMINOPHEN 325 MG TABLET 650 MG PO (18:27)
[2021-11-24 18:43] VITALS: PULSE 65; O2SAT 100
--- NOTE | 2021-11-24 19:58 | PC.NURSE ---
Sling applied to right arm. PMI intact distally. Pt reports comfort. Pillow applied under arm for support.
[2021-11-24 20:56] VITALS: BP 154/61; PULSE 65; RESP 18; O2SAT 100
== END 2021-11-24 20:57 | disposition home or self-care (01) ==
PROVIDERS: Emergency Provider Emergency Medicine; PCP Family Medicine
DX: S42.251A Displaced fracture of greater tuberosity of right humerus, initial encounter for closed fracture (principal); S42.211A Unspecified displaced fracture of surgical neck of right humerus, initial encounter for closed fracture; S00.12XA Contusion of left eyelid and periocular area, initial encounter; I12.9 Hypertensive chronic kidney disease with stage 1 through stage 4 chronic kidney disease, or unspecified chronic kidney disease; N18.30 Chronic kidney disease, stage 3 unspecified; R73.03 Prediabetes; Z86.711 Personal history of pulmonary embolism; E53.8 Deficiency of other specified B group vitamins; E55.9 Vitamin D deficiency, unspecified; Z98.84 Bariatric surgery status; Z85.3 Personal history of malignant neoplasm of breast; Z95.2 Presence of prosthetic heart valve; Z79.82 Long term (current) use of aspirin; M19.011 Primary osteoarthritis, right shoulder; M19.021 Primary osteoarthritis, right elbow; W18.09XA Striking against other object with subsequent fall, initial encounter
CPT/HCPCS: 70450; 70486; 73030; 73080; 99284; A4565; A9270

== ENCOUNTER 2022-02-03 08:59 | Outpatient (CLI) | payer OTHER, SELFPAY ==
--- NOTE | ~2022-02-03 | XR_ITS ---
XR chest 2V 02/03/2022 09:26 Indication: Dyspnea with exertion Procedure: PA and lateral views of the chest Comparison: Comparison to multiple prior studies sequentially, with oldest reviewed study dated 11/16. Findings: Status post median sternotomy for CABG. Borderline heart size. No focal air space disease, pulmonary edema, pleural effusion or suspected pneumothorax. There is a prosthetic aortic valve. Ther e is a healing right humeral neck fracture.. Impression: 1: No acute cardiopulmonary disease. 2: Healing right humeral neck fracture. Reviewed, dictated and finalized at location B. Impression: 1: No acute cardiopulmonary disease. 2: Healing right humeral neck fracture.
[2022-02-03 10:15] LABS: Anion Gap 12 mmol/L (8-16); Blood Urea Nitrogen 17 mg/dL (7-17); Calcium 8.3 mg/dL (8.4-10.2); Carbon Dioxide 27 mmol/L (22-30); Chloride 104 mmol/L (98-107); Estimated Glomerular Filt Rate 50; Glucose 96 mg/dL (65-110); Potassium 4.5 mmol/L (3.4-5.0); Sodium 143 mmol/L (137-145)
[2022-02-03 10:22] LABS: NT Pro B Type Natriuretic Pept 1360 pg/mL (5-100)
== END 2022-02-03 09:00 | disposition home or self-care (01) ==
PROVIDERS: PCP Family Medicine; Visit Provider Nurse Practitioner Adult Health
DX: R06.00 Dyspnea, unspecified (principal); S42.291D Other displaced fracture of upper end of right humerus, subsequent encounter for fracture with routine healing
CPT/HCPCS: 36415; 71046; 80048; 83880

== ENCOUNTER 2022-03-17 15:15 | Outpatient (RCR) | payer OTHER, SELFPAY ==
[2021-12-19 12:38] VITALS: BP_SYST 85
--- NOTE | 2021-12-19 13:32 | PTOPEVAL ---
PHYSICAL THERAPY INITIAL EVALUATION. Thank you for referring Misty Ram to [facility].? The patient is scheduled to be seen for therapy? 2x/week for 4 weeks. Please review, sign, date and return this plan of care DAVE. I agree with and certify that the following plan of care is medically necessary. Referring Physician Date Attending Provider: Zeeshan De La Torre MD *PT Outpatient Evaluation Start: 12/19/21 Evaluation Information Diagnosis R proximal humerus fracture Onset 11/24/21 Subjective Information Pt states she fell on 11/24/21 Query Text:As Reported By Patient/ while walking outside and Family fractured her shoulder. She elected a non-surgical approach. She has been wearing a sling since her fall. She was told on 12/14/21 that wearing her sling is optional. She reports most of the time her pain is well controlled, and is worse at night when trying to sleep. Prior Level of Function Occupation retired Hand Dominance Right Pain Assessment Right Shoulder(s) Reported Pain Level 0 Pain Frequency Acute,Intermittent Lowest Pain Intensity 0 Greatest Pain Intensity 6 Pain Aggravating Factors ADL's Upper Extremity Range of Motion Right Reason Not Measured Pain Scapular: Retraction Normal Scapular: Protraction Normal Scapular Downward Rotation Normal Scapular Upward Rotation Normal Shoulder Flexion - Active 50 Shoulder Flexion - Passive 80 Shoulder Abduction - Active 32 Shoulder Abduction - Passive 85 Shoulder Medial Rotation - Passive 45 Shoulder Lateral Rotation - Passive 50 Left Scapular: Retraction Normal Scapular: Protraction Normal Scapular Downward Rotation Normal Scapular Upward Rotation Normal Shoulder Flexion - Active 150 Shoulder Abduction - Active 150 Shoulder Medial Rotation - Passive 70 Shoulder Medial Rotation - Active T7 Shoulder Lateral Rotation - Passive 75 Shoulder Lateral Rotation - Active T4 Elbow/Forearm Range of Motion Right Elbow Flexion - Active 115 Elbow Flexion - Passive 140 Elbow Extension - Active -30 Elbow/Forearm Range of Motion Comments L elbow active 0-145 Palpation Assessment Palpation green and purple bruising throughout humerus, increased noted at distal end Safety Assessment Factors Affecting Safety Limited
[2022-01-16 12:34] VITALS: BP_SYST 115
--- NOTE | 2022-01-16 13:17 | PTOPPROG ---
Evaluation Information Assessment Status Progress Diagnosis R shoulder fx Onset 11/24/21 Subjective Information Pt states her shoulder is doing a lot better. Pt states she is able to do so many things. She states sometimes she forgets her arm was even hurt until she tries to do too much. Assessment PT Clinical Summary Misty presents to therapy today for her progress report following 7 visits of skilled physical therapy to treat her R shoulder fx on 11/24. Today she reports improved pain with now no pain at rest . She has completed weaned from the sling and now demonstrates elbow ROM equal to her uninvolved side. Her shoulder strength and ROM has improved from her initial visit and is now ~50% of her uninvolved side, flexion to 75 deg and abduction to 70 deg. Her passive ROM is only slightly limited. She requires cueing to decrease shoulder elevation during exercise. Continuation of skilled physical therapy services are indicated to address remaining deficits, to improve function, and to return to baseline. Plan of Care Interventions Hot Pack/Cold Pack,Manual Therapy,Neuro Re- education,Patient/Caregiver Educati,Therapeutic Activities,Therapeutic Exercise PT Services Indicated Yes Treatment Frequency and 2x/wk for 4 wks or until goals are met Duration These treatments will address the objective and functional deficits as defined above. The patient will be advanced safely and appropriately in order for the patient to progress towards his/her prior level of function. Additional exercises will be introduced and as well as a comprehensive home exercise program upon discharge, if needed, ?to ensure carryover of functional gains achieved in the clinic. This treatment plan has been reviewed and agreement upon by the patient.
[2022-02-13 09:01] VITALS: BP_SYST 120
--- NOTE | 2022-02-13 09:48 | PTOPPROG ---
Assessment and note entered by Dylan Al, PT, DPT Evaluation Information Assessment Status Progress Diagnosis R shoulder fx Onset 11/24/21 Subjective Information Pt states she can really tell her improvement. She states sometimes she even forgets she hurt her shoulder. She states she followed up with her orthopedic, and they were pleased with her progress. She states cooking at home has improved but still has some minor limitations. She reports the most pain when trying to sleep. Assessment PT Clinical Summary Misty presents to therapy today for her progress report following 15 visits of skilled therapy to treat her R shoulder fracture on 11/24. Today she demonstrates improved active ROM in both flexion and extension but this is still lacking for functional values. She continues to demonstrates significant weakness in her R shoulder and pain increases with resistance. She reports good compliance with her HEP and is making some progress towards her goals. Continuation of skilled physical therapy services are indicated to address remaining deficits, to improve ROM, to improve strength, and to progress towards baseline function. Plan of Care Interventions Hot Pack/Cold Pack,Manual Therapy,Neuro Re- education,Patient/Caregiver Educati,Therapeutic Activities,Therapeutic Exercise PT Services Indicated Yes Treatment Frequency and 1x/wk for 6 wks Duration These treatments will address the objective and functional deficits as defined above. The patient will be advanced safely and appropriately in order for the patient to progress towards his/her prior level of function. Additional exercises will be introduced and as well as a comprehensive home exercise program upon discharge, if needed, ?to ensure carryover of functional gains achieved in the clinic. This treatment plan has been reviewed and agreement upon by the patient.
--- NOTE | 2022-03-10 16:51 | PCPTNOTE ---
Patient canceled appointment this date.
--- NOTE | 2022-03-20 10:11 | PCPTNOTE ---
This treatment is being continued on visit number [id number]. Please see documentation on both accounts to view progress. Completed interventions, outcomes, and problems have been marked as Inactive to facilitate the copying of the Care plan routine for recurring accounts.
== END 2022-03-19 23:59 | disposition home or self-care (01) ==
LOC: ANHGOSHPT 15:15
PROVIDERS: PCP Family Medicine; Visit Provider Orthopaedic Surgery
DX: S42.209D Unspecified fracture of upper end of unspecified humerus, subsequent encounter for fracture with routine healing (principal)
CPT/HCPCS: 97035; 97110; 97112; 97140; 97161; 97530

== ENCOUNTER 2022-03-17 15:58 | Outpatient (CLI) | payer OTHER, SELFPAY ==
[2022-03-17 18:22] LABS: Anion Gap 14 mmol/L (8-16); Blood Urea Nitrogen 26 mg/dL (7-17); Calcium 8.4 mg/dL (8.4-10.2); Carbon Dioxide 23 mmol/L (22-30); Chloride 104 mmol/L (98-107); Estimated Glomerular Filt Rate 41; Glucose 100 mg/dL (65-110); Potassium 4.7 mmol/L (3.4-5.0); Sodium 141 mmol/L (137-145)
== END 2022-03-17 15:59 | disposition home or self-care (01) ==
LOC: ANHGOSHLAB 16:02
PROVIDERS: PCP Family Medicine; Visit Provider Nurse Practitioner Adult Health
DX: R60.0 Localized edema (principal)
CPT/HCPCS: 36415; 80048

== ENCOUNTER 2022-04-19 13:15 | Outpatient (RCR) | payer OTHER, SELFPAY ==
--- NOTE | 2022-03-20 10:12 | PCPTNOTE ---
The treatment documented on this account is a continuation of the treatment documented on visit number [id number]. Please see documentation on both accounts to view progress. The Plan of Care has been transitioned and updated within the new V#. I have addressed and agree with the discipline specific Problems, Interventions, and Goals for the current certification period. Completed interventions, outcomes, and problems have been marked as Inactive to facilitate the copying of the Care plan routine for recurring accounts.
--- NOTE | 2022-03-24 16:09 | PTOPPROG ---
Assessment and note entered by Dylan Al, PT, DPT Evaluation Information Assessment Status Progress Diagnosis R shoulder fracture Onset 11/24/21 Subjective Information Pt states her shoulder still hurts sometimes, she states this is somewhat weather dependent. She states her pain and function has improved a lot since starting therapy. She states it is still difficultly to reach behind her back. Pt states she still in not sleeping well d/t shoulder pain. Assessment PT Clinical Summary Misty presents to therapy today for her progress report following 20 visits of skilled therapy. Today she reports improvement but still pain when reaching over her head and the inability to reach behind her back. She demonstrates 112 deg of active flexion and 105 deg of active abduction which is comparable but still decreased to her uninvolved side. She continues to require cues during her exercises to limit substitutions and for correct alignment. For this reason, continuation of skilled physical therapy services are indicated to monitor progress, progress exercises, and to assist with return to baseline function. Plan of Care Interventions Electrical Stimulation,Hot Pack/Cold Pack,Manual Therapy,Neuro Re-education,Patient/Caregiver Educati,Therapeutic Activities,Self-Care/Home Management PT Services Indicated Yes Treatment Frequency and 1x/wk for 5 wks Duration These treatments will address the objective and functional deficits as defined above. The patient will be advanced safely and appropriately in order for the patient to progress towards his/her prior level of function. Additional exercises will be introduced and as well as a comprehensive home exercise program upon discharge, if needed, ?to ensure carryover of functional gains achieved in the clinic. This treatment plan has been reviewed and agreement upon by the patient.
--- NOTE | 2022-04-12 09:07 | PCPTNOTE ---
Patient called to cancel due to illness.
--- NOTE | 2022-04-19 14:56 | PTOPDC ---
Assessment and note entered by Dylan Al, PT, DPT Evaluation Information Assessment Status Discharge - Pt Not Present Diagnosis R shoulder fracture Onset 11/24/21 Subjective Information Per pt, she states her PCP recommended that she be done with therapy and continue her HEP. Assessment PT Clinical Summary Kiara has completed 22 visits of skilled therapy at this time from 12/19/21 to 04/19/22. She has progressed in her strength and ROM but is still limited with these. She also continues to struggle with pain management. She will be discharged from skilled therapy services at this time. If she requires additional therapy at a later date, she will need a new order. Plan of Care Treatment Frequency and to be discharged Duration
== END 2022-04-26 11:02 | disposition home or self-care (01) ==
LOC: ANHGOSHPT 13:15
PROVIDERS: PCP Family Medicine; Visit Provider Orthopaedic Surgery
DX: S42.209D Unspecified fracture of upper end of unspecified humerus, subsequent encounter for fracture with routine healing (principal)
CPT/HCPCS: 97110; 97112; 97140

== ENCOUNTER 2022-09-13 08:03 | Outpatient (CLI) | payer OTHER, SELFPAY ==
[2022-09-13 09:29] LABS: Kit Draw Collected
== END 2022-09-13 08:04 | disposition home or self-care (01) ==
LOC: ANHGOSHLAB 08:06
PROVIDERS: PCP Family Medicine; Visit Provider Physician Assistant
DX: N18.30 Chronic kidney disease, stage 3 unspecified (principal); D72.819 Decreased white blood cell count, unspecified
CPT/HCPCS: 36415

== ENCOUNTER 2022-09-19 08:45 | Outpatient (RCR) | payer OTHER, SELFPAY ==
--- NOTE | 2022-07-03 09:33 | PTOPEVAL1 ---
Assessment and note entered by Dylan Al, PT, DPT Evaluation Information Assessment Status Evaluation Diagnosis decreased mobility Subjective Information Pt states she feels unsteady when she is walking. She had a fall last November leading to a broken arm and she reports being fearful that this could happen again. She reports no specific therapy goals other that avoiding falls and increased confidence with functional mobility. Reported Pain Level Pain Score 2: Self Report Assessment PT Clinical Summary Misty is a deconditioned 62 y/o female who presents to therapy today for her initial evaluation with a diagnosis of decreased mobility. Today she demonstrates scores on the Tinetti, TUG , and 5xSTS that place her at an increased risk of falls. Skilled physial therapy services are indicated to address strength and balance deficits , improve mobility, and promote safety with functional tasks. Plan of Care Interventions Gait Training,Manual Therapy,Neuro Re-education, Patient/Caregiver Educati,Therapeutic Activities, Therapeutic Exercise PT Services Indicated Yes Treatment Frequency and 2x/wk for 4 wks Duration These treatments will address the objective and functional deficits as defined above. The patient will be advanced safely and appropriately in order for the patient to progress towards his/her prior level of function. Additional exercises will be introduced and as well as a comprehensive home exercise program upon discharge, if needed, ?to ensure carryover of functional gains achieved in the clinic. This treatment plan has been reviewed and agreement upon by the patient.
--- NOTE | 2022-07-20 14:33 | PCPTNOTE ---
Patient reports her dog and is unable to come to therapy this date.
--- NOTE | 2022-07-27 08:38 | PCPTNOTE ---
Patient called to cancel due to having covid.
--- NOTE | 2022-08-07 10:01 | PCPTNOTE ---
Patient called & cancelled scheduled appointment this date due to still being sick. She has been rescheduled.
--- NOTE | 2022-08-15 13:23 | PTOPPROG ---
Assessment and note entered by Dylan Al, PT, DPT Evaluation Information Assessment Status Progress Diagnosis decreased mobility Subjective Information Pt states she is doing okay, she states she had Covid last month and has still been trying to recover from that. She states she has not done her exercises very much because most days it was hard to get out of bed. She states she still feels so fatigued and tired that she has not returned to her exercises yet. Assessment PT Clinical Summary Misty presents to therapy today for her progress report following 6 visits of skilled therapy to treat her gait and mobility abnormalities. Today she demonstrates improved times during the 5xSTS and TUG test but her times still place her at an increased risk of falls. She also improved her Tinetti score from 21/28 to 24/28. Continuation of skilled therapy services are indicated to continue to improve strength, balance, endurance, and functional mobility. Plan of Care Interventions Gait Training,Manual Therapy,Neuro Re-education, Patient/Caregiver Educati,Therapeutic Activities, Therapeutic Exercise PT Services Indicated Yes Treatment Frequency and 2x/wk for 4 wks Duration These treatments will address the objective and functional deficits as defined above. The patient will be advanced safely and appropriately in order for the patient to progress towards his/her prior level of function. Additional exercises will be introduced and as well as a comprehensive home exercise program upon discharge, if needed, ?to ensure carryover of functional gains achieved in the clinic. This treatment plan has been reviewed and agreement upon by the patient.
--- NOTE | 2022-08-29 08:44 | PCPTNOTE ---
Patient reports she is not feeling well and needs to cancel this date.
--- NOTE | 2022-09-11 09:53 | PTOPPROG ---
Assessment and note entered by Dylan Al, PT, DPT Evaluation Information Assessment Status Progress Diagnosis decreased mobility Subjective Information Pt states her progress has been limited by a stubbed toe that she has been recovery from. She states she was on her feet a lot this weekend and her feet were really bothering her. She reports it does feel like her knees are getting better. Pt reports about 50% improvement in her mobility. Assessment PT Clinical Summary Misty presents to therapy today for her progress report following 13 visits of skilled therapy to treat her gait and mobility abnormalities. Today she demonstrates times during the 5xSTS and TUG tests that still place her at an increased risk of falls. She still has not met her greatest goal, stepping up/down a curb without assistance. Continuation of skilled therapy services are indicated to continue to improve strength, balance , endurance, stability, and functional mobility. Plan of Care Interventions Gait Training,Manual Therapy,Neuro Re-education, Patient/Caregiver Educati,Therapeutic Activities, Therapeutic Exercise PT Services Indicated Yes Treatment Frequency and 2x/wk for 4 wks Duration These treatments will address the objective and functional deficits as defined above. The patient will be advanced safely and appropriately in order for the patient to progress towards his/her prior level of function. Additional exercises will be introduced and as well as a comprehensive home exercise program upon discharge, if needed, ?to ensure carryover of functional gains achieved in the clinic. This treatment plan has been reviewed and agreement upon by the patient.
--- NOTE | 2022-09-20 15:51 | PCPTNOTE ---
This treatment is being continued on visit number [id number]. Please see documentation on both accounts to view progress. Completed interventions, outcomes, and problems have been marked as Inactive to facilitate the copying of the Care plan routine for recurring accounts.
== END 2022-09-20 15:04 | disposition home or self-care (01) ==
LOC: ANHGOSHPT 08:45
PROVIDERS: PCP Family Medicine; Visit Provider Family Medicine
DX: R26.89 Other abnormalities of gait and mobility (principal)
CPT/HCPCS: 97110; 97112; 97140; 97161; 97530

== ENCOUNTER 2022-11-23 12:30 | Outpatient (RCR) | payer OTHER, SELFPAY ==
--- NOTE | 2022-09-20 15:51 | PCPTNOTE ---
The treatment documented on this account is a continuation of the treatment documented on visit number [id number]. Please see documentation on both accounts to view progress. The Plan of Care has been transitioned and updated within the new V#. I have addressed and agree with the discipline specific Problems, Interventions, and Goals for the current certification period. Completed interventions, outcomes, and problems have been marked as Inactive to facilitate the copying of the Care plan routine for recurring accounts.
--- NOTE | 2022-10-09 09:57 | PTOPPROG ---
Assessment and note entered by Dylan Al, PT, DPT Evaluation Information Assessment Status Progress Diagnosis decreased mobility Subjective Information Pt states she has started walking with a cane and this has helped her waddling without a change in knee pain. She states she is continuing to progress . She states she can still not do steps and that has not improved at all. She reports she can get up and down from the chairs at [facility] now. Assessment PT Clinical Summary Misty presents to therapy today for her progress report following 21 visits of skilled therapy to treat her decreased mobility. She has recently started using a cane d/t significant gait deviations that have not improved enough to normalize her gait pattern. Her gait speed has not increased but she reports longer walking tolerance with less pain while using a cane. She continues to have weakness throughout her BLE resulting in pain, decreased functional mobility, and impaired gait. Continuation of skilled therapy services are indicated to continue progressing towards therapy goals, for gait training with cane , to manage pain, and to improve functional mobility. Plan of Care Interventions Electrical Stimulation,Gait Training,Hot Pack/Cold Pack,Manual Therapy,Neuro Re-education,Patient/ Caregiver Educati,Therapeutic Activities, Therapeutic Exercise PT Services Indicated Yes Treatment Frequency and 1x/wk for 6 wks Duration These treatments will address the objective and functional deficits as defined above. The patient will be advanced safely and appropriately in order for the patient to progress towards his/her prior level of function. Additional exercises will be introduced and as well as a comprehensive home exercise program upon discharge, if needed, ?to ensure carryover of functional gains achieved in the clinic. This treatment plan has been reviewed and agreement upon by the patient.
--- NOTE | 2022-11-02 15:28 | PCPTNOTE ---
On 11/02/22, the student, Bridget Easton, provided care and completed [facility] documentation on this patient. I have reviewed the student's documentation and agree with the findings.
--- NOTE | 2022-11-09 13:22 | PCPTNOTE ---
On 11/09/22, the student, Christel Gill provided care and completed [facility] documentation on this patient. I have reviewed the student's documentation and agree with the findings.
--- NOTE | 2022-11-16 16:03 | PCPTNOTE ---
On 11/16/22, the student, Jemma Gill provided care and completed [employer] documentation on this patient. I have reviewed the student's documentation and agree with the findings.
--- NOTE | 2022-11-23 14:09 | PTOPDC ---
Assessment and note entered by Dylan Al, PT, DPT Evaluation Information Assessment Status Discharge Diagnosis decreased mobility Subjective Information Pt states things are going pretty good, she states she feels good now because of the shots she got, she wishes these lasted longer. She states yesterday she was just walking and she guesses she stepped the wrong way, she felt like she popped her knee out and had to force herself through the pain to get it to pop back in. Pt states she feels more confident on the stairs, just not to do them without a railing. Reported Pain Level Pain Score 0,2: Self Report Assessment PT Clinical Summary Misty presents to therapy today for her progress report following 27 visits of skilled therapy to treat her decreased mobility. Today she reports improved confidence when using her cane out in the community. Her knee strength has improved, her stair navigation has improved, and her 5xSTS time continues to decrease indicated improve LE strength. She continues to have a strong Trendelenburg and hip abduction weakness. Pt states she would like to continue her HEP on her own at this time, she will therefore be discharged . Plan of Care PT Services Indicated No
== END 2022-11-24 08:52 | disposition home or self-care (01) ==
LOC: ANHGOSHPT 12:30
PROVIDERS: PCP Family Medicine; Visit Provider Family Medicine
DX: R26.89 Other abnormalities of gait and mobility (principal)
CPT/HCPCS: 97014; 97110; 97112; 97116; 97140; 97530; G0283

== ENCOUNTER 2023-02-09 08:29 | Outpatient (CLI) | payer OTHER, SELFPAY ==
[2023-02-09 19:09] LABS: Basophils Absolute Auto 0.1 K/mm3 (0.0-0.1); Basophils Percent Auto 1.4 % (0.2-1.2); Eosinophils Absolute Auto 0.1 K/mm3 (0-0.3); Eosinophils Percent Auto 1.2 % (0-4.4); Hematocrit 37.7 % (37.0-47.0); Hemoglobin 12.1 g/dL (12.0-15.0); Immature Granulocyte Absolute 0.02 K/mm3 (0.00-0.031); Immature Granulocyte Percent A 0.4 % (0-0.5); Lymphocytes Absolute Auto 1.08 K/mm3 (0.9-3.2); Lymphocytes Percent Auto 22.1 % (18.3-44.2); Mean Corpuscular HGB Conc 32.1 g/dl (32-36); Mean Corpuscular Hemoglobin 31.8 pg (26-34); Mean Corpuscular Volume 99.2 fl (80-100); Mean Platelet Volume 10.1 fl (7.4-10.4); Monocytes Absolute Auto 0.4 K/mm3 (0.1-0.6); Monocytes Percent Auto 8.2 % (2.6-8.5); Neutrophils Absolute Auto 3.3 K/mm3 (1.3-6.7); Neutrophils Percent Auto 66.7 % (45.5-73.1); Platelet Count Result 265 k/mm3 (150-375); Red Cell Distribution Width 12.4 % (11.5-14.5); White Blood Count 4.9 K/mm3 (4.5-10.0)
[2023-02-09 20:16] LABS: Iron 120 ug/dL (37-170)
[2023-02-09 20:25] LABS: Percent Iron Saturation 38 % (20-50)
== END 2023-02-09 08:30 | disposition home or self-care (01) ==
LOC: ANHGOSHLAB 08:30
PROVIDERS: PCP Family Medicine; Visit Provider Physician Assistant Medical
DX: R53.83 Other fatigue (principal)
CPT/HCPCS: 36415; 82728; 83540; 83550; 85025

== ENCOUNTER 2023-05-11 13:32 | Outpatient (CLI) | payer MEDICARE, SELFPAY ==
--- NOTE | ~2023-05-11 | XR_ITS ---
EXAMINATION: XR knee LT min 4V DATE: 05/11/2023 13:58 INDICATION: Unilateral primary osteoarthritis, left knee. TECHNIQUE: 4 views of left knee including standing views were obtained. COMPARISON: None. FINDINGS: There is varus angulation at the knee. There is lateral subluxation of patella. No fracture . There is severe osteoarthritis of medial and patellofemoral compartments and mild osteoarthritis of lateral compartment. No knee joint effusion. There is a loose body in the knee joint posteriorly. IMPRESSION: 1. Severe left knee osteoarthritis with loose body. Reviewed, dictated and finalized at location E. FRAMING MANAGER
--- NOTE | ~2023-05-11 | XR_ITS ---
XR knee RT min 4V DATE: 05/11/2023 13:58 INDICATION: Right knee primary osteoarthritis TECHNIQUE: [place] and standing AP, PA and lateral views COMPARISON: None FINDINGS: There is severe joint space narrowing and prominent periarticular spurring at the medial an d patellofemoral compartments. There is periarticular spurring and moderate knee joint space narrowing at the lateral compartment. There is diffuse osteopenia. No fracture or dislocation, periosteal reaction or bone destruction, radiopaque intra-articular loose body or chondrocalcinosis is noted. IMPRESSION: Tricompartment osteoarthritis, most severe at the medial and patellofemoral compartments Osteopenia Reviewed, dictated and finalized at location B. CTURAL MILL SUPERVISOR IMPRESSION: Tricompartment osteoarthritis, most severe at the medial and patell ofemoral compartments Osteopenia
== END 2023-05-11 13:33 | disposition home or self-care (01) ==
PROVIDERS: PCP Family Medicine; Visit Provider Orthopaedic Surgery
DX: M23.42 Loose body in knee, left knee (principal); M85.861 Other specified disorders of bone density and structure, right lower leg; M17.0 Bilateral primary osteoarthritis of knee
CPT/HCPCS: 73564

== ENCOUNTER 2023-05-16 07:47 | Outpatient (CLI) | payer MEDICARE, SELFPAY ==
--- NOTE | ~2023-05-16 | DEXA_ITS ---
Bone Density Report Name: JACINDA YE Age: 63 Sex: Female Ethnicity: White Date of : 1960 Indication: osteopenia; height loss; prior fracture; cancer;postmenopausal Referring Provider: ONI ROGERS Study: Bone densitometry was performed. Exam Date: May 16, 2023 Accession number: [id number] Bone Density: Region BMD T-score Z-score Classification AP Spine(L1-L4) 1.107 0.5 2.3 Normal Femoral Neck (Left) 0.509 -3.1 -1.6 Osteoporosis Total Hip (Left) 0.742 -1.6 -0.4 Osteopenia Femoral Neck (Right) 0.603 -2.2 -0.7 Osteopenia Total Hip (Right) 0.623 -2.6 -1.4 Osteoporosis Total Hip Mean 0.682 -2.1 -0.9 Osteopenia World Health Organization criteria for BMD impression classify patients as: Normal (T-score at or above -1.0), Osteopenia (T-score between -1.0 and -2.5), or Osteoporosis (T-score at or below -2.5). 10-year Fracture Risk: FRAX not reported because: Some T-score for Spine Total or Hip Total or Femoral Neck at or below -2.5 Prior hip or vertebral fracture Previous Exams: Region Exam Age BMD T-score BMD Change BMD Change Date g/cm2 vs Baseline vs Previous AP Spine (L1-L4) 05/16/2023 63 1.107 0.5 -0.039 (-3.4%) -0.039 (-3.4%) 03/08/2021 61 1.146 0.9 0.000 (0.0%) 0.000 (0.0%) 09/24/2017 57 1.146 0.9 Total Hip(Left) 05/16/2023 63 0.742 -1.6 -0.101 (-11.9% -0.079 (-9.6%) 03/08/2021 61 0.821 -1.0 -0.021 (-2.5%) -0.021 (-2.5%) 09/24/2017 57 0.842 -0.8 Total Hip(Right) 05/16/2023 63 0.623 -2.6 -0.139 (-18.3% -0.152 (-19.6% 03/08/2021 61 0.774 -1.4 0.013 (1.6%) 0.013 (1.6%) 09/24/2017 57 0.762 -1.5 *Denotes significance at 95% confidence level, LSC for AP Spine = 0.022 g/cm2, LSC for Total Hip = 0.027 g/cm2 # Denotes dissimilar scan types or analysis methods Clinical Information Provided by Patient: Have had a previous hip or vertebral fracture Has had a low trauma fracture Has used the following medications: Vitamin D, Calcium Has the following medical conditions: Cancer Patient maximum height was 68 Menopause Age: 48 No regular weight bearing exercise Drinks caffeinated beverages Onset of menses at age 11 Number of children 3 Impression: The patient has established osteoporosis, based on the Left Femoral Neck T-score and the existence of a prior fracture. The patient has risk factors, including: previous fracture. No significant bone loss was observed. Discussio
== END 2023-05-16 07:48 | disposition home or self-care (01) ==
LOC: ANHIMG 07:50
PROVIDERS: PCP Family Medicine; Visit Provider Internal Medicine Hematology & Oncology
DX: M81.0 Age-related osteoporosis without current pathological fracture (principal)
CPT/HCPCS: 77080

== ENCOUNTER 2023-06-21 08:34 | Outpatient (CLI) | payer MEDICARE, SELFPAY ==
[2023-06-21 19:11] LABS: Basophils Absolute Auto 0.1 K/mm3 (0.0-0.1); Basophils Percent Auto 1.2 % (0.2-1.2); Eosinophils Absolute Auto 0.2 K/mm3 (0-0.3); Eosinophils Percent Auto 3.7 % (0-4.4); Hematocrit 42.9 % (37.0-47.0); Hemoglobin 13.9 g/dL (12.0-15.0); Immature Granulocyte Absolute 0.02 K/mm3 (0.00-0.031); Immature Granulocyte Percent A 0.4 % (0-0.5); Lymphocytes Absolute Auto 1.31 K/mm3 (0.9-3.2); Lymphocytes Percent Auto 27.2 % (18.3-44.2); Mean Corpuscular HGB Conc 32.4 g/dl (32-36); Mean Corpuscular Hemoglobin 31.4 pg (26-34); Mean Corpuscular Volume 97.1 fl (80-100); Mean Platelet Volume 10.6 fl (7.4-10.4); Monocytes Absolute Auto 0.4 K/mm3 (0.1-0.6); Monocytes Percent Auto 9.1 % (2.6-8.5); Neutrophils Absolute Auto 2.8 K/mm3 (1.3-6.7); Neutrophils Percent Auto 58.4 % (45.5-73.1); Platelet Count Result 196 k/mm3 (150-375); Red Blood Count 4.42 M/mm3 (4.2-5.4); Red Cell Distribution Width 13.4 % (11.5-14.5); White Blood Count 4.8 K/mm3 (4.5-10.0)
[2023-06-21 19:42] LABS: Alanine Aminotransferase 17 U/L (6-35); Albumin Level 3.9 g/dL (3.5-5.1); Alkaline Phosphatase 77 U/L (38-126); Anion Gap 7 mmol/L (8-16); Aspartate Amino Transferase 43 U/L (14-36); Bilirubin,Total 0.8 mg/dL (0.2-1.3); Blood Urea Nitrogen 26 mg/dL (7-17); Calcium 9.7 mg/dL (8.4-10.2); Carbon Dioxide 28 mmol/L (22-30); Chloride 106 mmol/L (98-107); Cholesterol 255 mg/dL (0-200); Estimated Glomerular Filt Rate 50; Glucose 93 mg/dL (65-110); HDL Direct 53 mg/dL; Potassium 4.6 mmol/L (3.4-5.0); Sodium 141 mmol/L (137-145); Triglycerides 127 mg/dL (<150)
[2023-06-21 19:53] LABS: LDL Cholesterol Direct 154 mg/dL
[2023-06-21 20:17] LABS: Hemoglobin A1C 5.5 % (<5.7)
== END 2023-06-21 08:35 | disposition home or self-care (01) ==
LOC: ANHGOSHLAB 08:36
PROVIDERS: PCP Family Medicine; Visit Provider Physician Assistant Medical
DX: D72.819 Decreased white blood cell count, unspecified (principal); E55.9 Vitamin D deficiency, unspecified; E53.8 Deficiency of other specified B group vitamins; R73.03 Prediabetes; E78.2 Mixed hyperlipidemia
CPT/HCPCS: 36415; 80053; 80061; 82306; 82607; 83036; 85025

== ENCOUNTER 2023-11-12 07:20 | Emergency (ER) | payer MEDICARE, OTHER, SELFPAY ==
--- NOTE | ~2023-11-12 | XR_ITS ---
XR chest 2V Ordering provider: Mikel Osman MD History: 63 years Female with . chest pain MID STERNAL TO RIGHT SIDE TODAY AORTIC HX OBESE . Comparison: February 03, 2022 FINDINGS: MEDIASTINUM: The cardiac silhouette is slightly enlarged. Postoperative changes in the mediastinum. C ongestive darrin. LUNGS: No infiltrates, effusions or pneumothorax. OTHER: No free air under the diaphragm. Degenerative changes of the spine. IMPRESSION: No acute cardiopulmonary pathology. Reviewed, dictated and finalized at location A.
--- NOTE | 2023-11-12 07:22 | ECG_ITS ---
Test Date: 2023-11-12 07:30:03 Measurements Intervals [place] Rate: 67 P: 90 SD: 139 QRS: 50 QRSD: 89 T: 44 QT: 403 QTc: 426 Interpretive Statements SINUS RHYTHM BORDERLINE ST ABNORMALITY- DIFFUSE LEADS BASELINE ARTIFACT- I, II, III, AVR, AVL, AVF, V1-V6 BORDERLINE ECG No previous ECG available for comparison Electronically Signed On 11-12-2023 08:22:52 CDT by Shlomo Julian D.O.
[2023-11-12 07:27] VITALS: BP 174/92; PULSE 69; RESP 16; TEMP 36.5; O2SAT 100
[2023-11-12 07:50] LABS: Basophils Absolute Auto 0.1 K/mm3 (0.0-0.1); Basophils Percent Auto 1.3 % (0.2-1.2); Eosinophils Absolute Auto 0.2 K/mm3 (0-0.3); Eosinophils Percent Auto 3.1 % (0-4.4); Hematocrit 40.4 % (37.0-47.0); Hemoglobin 13.4 g/dL (12.0-15.0); Immature Granulocyte Absolute 0.03 K/mm3 (0.00-0.031); Immature Granulocyte Percent A 0.5 % (0-0.5); Lymphocytes Absolute Auto 1.47 K/mm3 (0.9-3.2); Lymphocytes Percent Auto 26.7 % (18.3-44.2); Mean Corpuscular HGB Conc 33.2 g/dl (32-36); Mean Corpuscular Hemoglobin 31.8 pg (26-34); Mean Corpuscular Volume 95.7 fl (80-100); Mean Platelet Volume 10.6 fl (7.4-10.4); Monocytes Absolute Auto 0.4 K/mm3 (0.1-0.6); Monocytes Percent Auto 7.5 % (2.6-8.5); Neutrophils Absolute Auto 3.4 K/mm3 (1.3-6.7); Neutrophils Percent Auto 60.9 % (45.5-73.1); Platelet Count Result 213 k/mm3 (150-375); Red Blood Count 4.22 M/mm3 (4.2-5.4); Red Cell Distribution Width 12.9 % (11.5-14.5); White Blood Count 5.5 K/mm3 (4.5-10.0)
--- NOTE | 2023-11-12 07:58 | PC.NURSE ---
Pt has had bilateral mastectomy and stated to this RN either arm was ok for labs, IV, and BP.
[2023-11-12 07:59] LABS: Alanine Aminotransferase 17 U/L (6-35); Albumin Level 4.4 g/dL (3.5-5.1); Alkaline Phosphatase 63 U/L (38-126); Anion Gap 8 mmol/L (4-12); Aspartate Amino Transferase 32 U/L (14-36); Bilirubin,Total 0.8 mg/dL (0.2-1.3); Blood Urea Nitrogen 27 mg/dL (7-17); Calcium 8.9 mg/dL (8.4-10.2); Carbon Dioxide 26 mmol/L (22-30); Chloride 107 mmol/L (98-107); Estimated CRCL calculation 69 ml/min; Estimated Glomerular Filt Rate 50; Glucose 94 mg/dL (65-110); Lipase 256 U/L (23-300); Potassium 4.6 mmol/L (3.4-5.0); Sodium 141 mmol/L (137-145)
[2023-11-12 08:11] LABS: Troponin I < 0.012 ng/mL (0.000-0.034)
--- NOTE | 2023-11-12 08:11 | ED.CHESTPAIN ---
HPI - Chest Pain General Chief Complaint: Chest Pain Stated Complaint: chest pain Time Seen by Provider: 11/12/23 07:31 History of Present Illness HPI narrative: Patient is a 63-year-old female who presents ER with chest pain. It was in the lower central chest and epigastrium radiating around the right side. Lasted for 45 minutes and got better with aspirin. No history of coronary disease. She did have a aortic valve replacement in 2016. She reports her chest discomfort was not worsened by exertion. No associated brewer with dyspnea. Mild nausea. No nausea at this time. Related Data Home Medications Medication Instructions Recorded Confirmed aspirin 81 mg tablet,delayed 81 mg PO DAILY 02/18/20 07/26/23 release calcium carb-ergocalciferol (vit 1 tablet PO BID 02/18/20 07/26/23 D2) 500 mg (1,250 mg)-200 unit tablet denosumab 60 mg/mL subcutaneous 60 mg subcut [id number] 02/18/20 07/26/23 syringe (Prolia) fiber 2 tablet PO DAILY 02/18/20 07/26/23 melatonin 10 mg capsule 10 mg PO HS 02/18/20 07/26/23 hwniyzrwqwtn-Sx-uybq-minerals 1 tablet PO DAILY 11/26/20 07/26/23 (Multiple Vitamin, Womens tablet) vitamin B12 1,000 mcg-folic acid marv sublingual DAILY 12/18/22 06/25/23 400 mcg sublingual lozenge Allergies Allergy/AdvReac Type Severity Reaction Status Date / Time Cephalosporins Allergy Mild N/A Verified 11/12/23 07:31 Penicillins Allergy Unknown hypertensive Verified 11/12/23 07:31 crisis, SOB adhesive tape AdvReac Intermediate Redness of Verified 11/12/23 07:31 Skin Review of Systems Review of Systems: All systems reviewed & are unremarkable except as noted in HPI and below Constitutional: Constitutional: Reports no additional constitutional complaints ENT: Reports system reviewed and no additional complaints, except as documented Cardiovascular: Cardiovascular: Reports chest pain, Denies rapid heart rate, Denies radiating jaw, neck or arm pain and Denies slow heart rate Respiratory: Respiratory: Reports no additional respiratory complaints Gastrointestinal: Gastrointestinal: Reports no additional gastrointestinal complaints Musculoskeletal: Musculoskeletal: Reports no additional musculoskeletal complaints [facility] Past Medical History Medical History (Updated 11/12/23 @ 11:35 by Mikel Osman MD) Ankle contracture Arthritis Breast cancer Broken ankle Chronic renal insufficiency, stage III (moderate) Essential hypertension Hernia History of pulmonary embolism (~2015) Hypocalcemia Lipedema Prediabetes Right knee pain Vitamin B 12 deficiency Vitamin D deficiency Surgical History Surgical History (Updated 07/01/23 @ 21:53 by Velma Patterson MD) Aortic valve replaced (~11/05/15) H/O bilateral mastectomy (~12/21/17) H/O gastric bypass (~02/15/15) H/O hernia repair x5 H/O lumpectomy (~12/03/17) History of laparoscopic appendectomy Hx of cholecystectomy (~08/19/14) Previous section complicating x3 Family History Family History (Reviewed 06/25/23 @ 10:35 by Devaughn Valladares [facility]) Mother Family history of malignant neoplasm of breast in first degree relative Cancer Father Hypertension Cerebrovascular accident Other Family history of heart disease in male family member before age 55 Social History Social History (Reviewed 06/25/23 @ 10:35 by Devaughn Valladares [facility]) Smoking status: Never smoker Second hand tobacco smoke exposure: No Alcohol intake: never Substance use: never Substance use type: does not use Do You Feel Safe in your Home?: Yes Lack of Transportation: No Lack of Food: Never True Current Housing: I Have Housing Concerned About Future Housing: No Difficulty Paying Gas/Electric Bills: No Difficulty Paying for Meds: No Currently Unemployed: No Education: High School Diploma/GED Difficulty w/ Childcare or Family Care: No Living arrangements: with family Gender identity (if verbaliz
[2023-11-12 08:20] LABS: INR 1.1; Partial Thromboplastin Time 26.1 Seconds (22.3-36.8); Prothrombin Time 14.2 Seconds (11.1-14.7)
[2023-11-12 09:15] VITALS: BP 142/71; PULSE 63; RESP 16; O2SAT 100
[2023-11-12] MEDS: ASPIRIN 81 MG CHEWABLE TABLET 324 MG PO (09:22)
--- NOTE | 2023-11-12 10:27 | ECG_ITS ---
Test Date: 2023-11-12 10:33:12 Measurements Intervals [place] Rate: 59 P: 10 NM: 149 QRS: 42 QRSD: 82 T: 42 QT: 417 QTc: 415 Interpretive Statements SINUS BRADYCARDIA BASELINE ARTIFACT- I, II, III, AVR, AVL, AVF BORDERLINE ECG Compared to ECG 11/12/2023 07:30:03 HEART RATE HAS DECREASED Electronically Signed On 11-12-2023 10:49:26 CDT by Shlomo Julian D.O.
[2023-11-12 10:59] LABS: Troponin I < 0.012 ng/mL (0.000-0.034)
[2023-11-12 11:40] VITALS: BP 148/65; PULSE 62; RESP 17; O2SAT 100
== END 2023-11-12 11:41 | disposition home or self-care (01) ==
PROVIDERS: Emergency Provider Emergency Medicine; PCP Family Medicine
DX: R07.9 Chest pain, unspecified (principal); R00.1 Bradycardia, unspecified; M19.90 Unspecified osteoarthritis, unspecified site; Z85.3 Personal history of malignant neoplasm of breast; I10 Essential (primary) hypertension; Z86.711 Personal history of pulmonary embolism
CPT/HCPCS: 36415; 71046; 80053; 83690; 84484; 85025; 85610; 85730; 93005; 99284; A9270

== ENCOUNTER 2023-12-06 09:00 | Outpatient (RCR) | payer MEDICARE, OTHER, SELFPAY ==
--- NOTE | 2023-10-29 09:57 | OPREHPOC ---
Outpatient Therapy Plan of Care This is a Multidisciplinary Plan of Care that may contain components documented by all disciplines (PT, OT, and ST.) PT Problem 1 PT Problem #1 Knowledge Deficit PT Goal 1 Goal *indep with HEP * indep with compression garment and lymphedema care Target Visit 20 PT Problem 2 PT Problem #2 Impaired Lymphatic System PT Goal 1 Goal improve lymphatic system, to improve tissue/skin, mobility and decrease pain: circumferential measurement of legs to 68 cm 1* R 830 cm 2* L 860 cm no lymph vesicles over lower leg 3* R 4* L slight skin discoloration over lower leg 5* R 6* L no firmness of tissue over lower leg 7* R 8* L 9* 2 minute walking test distance of 350' with cane 10* supine SLR x 20 reps R and L Target Visit 20
--- NOTE | 2023-10-29 09:57 | PTOPEVAL1 ---
Assessment and note entered by Mireille Paiz, PT Evaluation Information Assessment Status Evaluation Diagnosis lymphedema Onset past year Subjective Information have lymphedema of legs, R more than L; had PT in the past for lymphedema of arms after bilateral mastectomy 2017; no compression garment but have home intermittent pump, but not used lately- tried a few times and felt like it did not help; discussed to use daily and measure mid arm to assess changes; Activity: indep with home tasks, do have house keeper for home cleaning; indep with self care, use cane for distances; does not do shopping due to legs, cannot walk distances--delivery or does it. Reported Pain Level Pain Score Self Report Additional Pain Score Comments pain in both knees due to arthritis, 0-4/10; increase pain with walking, use cane for distances does not use in home; Assessment PT Clinical Summary Misty has the diagnosis of bilateral LE lymphedema. She has had PT in the past for UE lymphedema s/p bilateral mastectomy. Medical history includes: multiple abdominal surgeries, respiratory issues/asthma, renal disease, gastric sleeve, aortic valve replacement, L ankle fracture with ORIF, bilateral knee arthritis and cortisone injections. With the evaluation: she has firmness of tissue over lower legs with discoloration of skin and lymph vesicles. Her L LE is 26.6 cm larger with circumferential measurement. Over both thighs she has soft, doughy tissue--lipedema. Use of a cane due to bilateral knee pain and 2 minute walking test distance of 290'. Skilled PT services are indicated for treatment to lipedema- lymphedema of both legs, with compression wraps to start on L LE, intermittent compression pump and education for self management of lymphedema, LE strengthening and compression garments.
--- NOTE | 2023-12-03 10:47 | PCPTNOTE ---
Addendum entered by Mireille Paiz, PT 12/03/23 10:58: note of necessity for home pump Original Note: Mrs. Ram has received 4 weeks of conservative therapy treatment for lymphedema of both legs: compression multilayer wraps to both R and L lower legs, intermittent basic LE pump used during PT sessions, manual lymph drainage and LE exercises. At home, she is elevating her legs, doing HEP and self manual lymph drainage. She is complaint with all of the education and HEP. She continues to have lymphedema and lipedema over trunk, thighs and lower legs, with enlarged abdomen. With the one time trial of the basic [employer] pump, the numbers reveal that her ankle and calf were decreased slightly and with numbers for the thigh and waist increased slightly. Her past medical history is complex with: L ankle ORIF, multiple abdominal surgeries, that would hinder lymph flow--gastric sleeve, hernia x 3, bowel obstruction, bilateral breast mastectomy. Also in her medical history: deep vein thrombosis, HTN, lung and renal disease, aortic valve replacement, bilateral knee arthritis and asthma. Recommend that Misty receive the [employer] advanced, intermittent compression pump due to her involved history and we have not received the expected results with the treatment given this far. Mireille Paiz, PT, CLT
--- NOTE | 2024-01-08 10:47 | PTOPDC ---
Assessment and note entered by Mireille Paiz, PT Discharge Report Assessment Status Discharge - Pt Not Present Diagnosis lymphedema Onset past year Subjective Information pt was not seen this date. Assessment PT Clinical Summary Misty was not seen this date for treatment. The circumferential measurements were from the last treatment appt on Dec 05. She has compression garments of Mediven Plus 20-30 mmHg, calf high with silicone band, size IV, standard length and compression edy of Bioflect size 4 XL. The garments fit her correctly, she reports comfort with them and is indep with donning/doffing. Education completed for lymphedema care and management. She has received 9 PT sessions and at the last appointment, she was placed on hold to make sure she would do OK with self management. Misty has not called or returned in the past 4 weeks, so she will be discharged at this time. Plan of Care PT Services Indicated No
== END 2024-01-08 14:31 | disposition home or self-care (01) ==
LOC: ANHPT 09:00
PROVIDERS: PCP Family Medicine; Visit Provider Family Medicine
DX: I89.0 Lymphedema, not elsewhere classified (principal)
CPT/HCPCS: 29581; 97016; 97110; 97140; 97161; 97530

== ENCOUNTER 2024-01-16 08:22 | Outpatient (CLI) | payer MEDICARE, OTHER, SELFPAY ==
[2024-01-16 08:45] LABS: Basophils Absolute Auto 0.1 K/mm3 (0.0-0.1); Basophils Percent Auto 1.4 % (0.2-1.2); Eosinophils Absolute Auto 0.2 K/mm3 (0-0.3); Hematocrit 38.8 % (37.0-47.0); Hemoglobin 12.7 g/dL (12.0-15.0); Immature Granulocyte Absolute 0.02 K/mm3 (0.00-0.031); Immature Granulocyte Percent A 0.4 % (0-0.5); Lymphocytes Absolute Auto 1.34 K/mm3 (0.9-3.2); Lymphocytes Percent Auto 26.9 % (18.3-44.2); Mean Corpuscular HGB Conc 32.7 g/dl (32-36); Mean Corpuscular Hemoglobin 32.1 pg (26-34); Mean Platelet Volume 10.1 fl (7.4-10.4); Monocytes Absolute Auto 0.5 K/mm3 (0.1-0.6); Neutrophils Percent Auto 59.3 % (45.5-73.1); Platelet Count Result 192 k/mm3 (150-375); Red Blood Count 3.96 M/mm3 (4.2-5.4); Red Cell Distribution Width 13.5 % (11.5-14.5)
[2024-01-16 10:08] LABS: Alanine Aminotransferase 20 U/L (6-35); Albumin Level 3.9 g/dL (3.5-5.1); Alkaline Phosphatase 78 U/L (38-126); Anion Gap 7 mmol/L (4-12); Aspartate Amino Transferase 34 U/L (14-36); Bilirubin,Total 0.8 mg/dL (0.2-1.3); Blood Urea Nitrogen 23 mg/dL (7-17); Calcium 9.3 mg/dL (8.4-10.2); Carbon Dioxide 30 mmol/L (22-30); Chloride 101 mmol/L (98-107); Cholesterol 236 mg/dL (0-200); Estimated Glomerular Filt Rate 45; Glucose 99 mg/dL (65-110); HDL Direct 53 mg/dL; Potassium 4.4 mmol/L (3.4-5.0); Sodium 138 mmol/L (137-145); Triglycerides 111 mg/dL (<150)
[2024-01-16 10:21] LABS: LDL Cholesterol Direct 140 mg/dL
[2024-01-16 10:51] LABS: Hemoglobin A1C 5.3 % (<5.7)
[2024-01-18 06:08] LABS: CA 15-3. 14 U/mL (<32)
== END 2024-01-16 08:23 | disposition home or self-care (01) ==
LOC: ANHLAB 08:24
PROVIDERS: PCP Family Medicine; Visit Provider Internal Medicine Hematology & Oncology
DX: C50.412 Malignant neoplasm of upper-outer quadrant of left female breast (principal); Z17.0 Estrogen receptor positive status [ER+]; R73.03 Prediabetes; E78.2 Mixed hyperlipidemia; R53.83 Other fatigue
CPT/HCPCS: 36415; 80053; 80061; 83036; 84443; 85025; 86300

== ENCOUNTER 2024-03-03 13:42 | Outpatient (CLI) | payer MEDICARE, OTHER, SELFPAY ==
--- NOTE | ~2024-03-03 | XR_ITS ---
EXAMINATION: XR ribs LT 2V w CXR 2V DATE: 03/03/2024 14:04 INDICATION: Left anterior lower rib pain. Fall. TECHNIQUE: Frontal and lateral views of the chest and 2 views on 3 radiographs of the left ribs were obtained. COMPARISON: chest two views 11/12/23, CT abdomen and pelvis 04/01/2021 FINDINGS: CHEST TWO VIEWS: There is no pneumonia, pleural effusion, or pneumothorax. The heart size is normal. There are changes of aortic valve replacement. Surgical clips in the right upper quadrant are likely from cholecystectomy. LEFT RIBS: There are fracture deformities of left fifth, sixth, seventh, and 10th ribs. IMPRESSION: 1. Left rib fractures. Reviewed, dictated and finalized at location B. IMPRESSION: 1. Left rib fractures.
== END 2024-03-03 13:43 | disposition home or self-care (01) ==
PROVIDERS: PCP Family Medicine; Visit Provider Family Medicine
DX: R07.89 Other chest pain (principal); S22.32XD Fracture of one rib, left side, subsequent encounter for fracture with routine healing; X58.XXXD Exposure to other specified factors, subsequent encounter
CPT/HCPCS: 71046; 71100

== ENCOUNTER 2024-05-02 09:48 | Emergency (ER) | payer MEDICARE, SELFPAY ==
--- NOTE | ~2024-05-02 | US_ITS ---
EXAMINATION: US venous doppler [facility] DATE: 05/02/2024 13:21 INDICATION: Left lower limb pain and swelling. TECHNIQUE: Grayscale ultrasound images without and with compression and Doppler ultrasound images of the left lower extremity veins were obtained. COMPARISON: None. FINDINGS: The visualized portions of left common femoral vein, profunda (deep) femoral vein, femoral vein, post erior tibial veins, and greater saphenous vein outflow are patent. The peroneal veins are not well vi sualized. There is deep vein thrombosis involving the posterior tibial veins. IMPRESSION: 1. Deep vein thrombosis involving the posterior tibial veins. Reviewed, dictated and finalized at location A. CIENCE SPECIALIST
[2024-05-02 10:20] VITALS: BP 170/90; PULSE 78; RESP 18; TEMP 36.8; O2SAT 98
[2024-05-02 14:12] LABS: Basophils Absolute Auto 0.1 K/mm3 (0.0-0.1); Basophils Percent Auto 1.3 % (0.2-1.2); Eosinophils Absolute Auto 0.2 K/mm3 (0-0.3); Eosinophils Percent Auto 3.5 % (0-4.4); Hematocrit 42.2 % (37.0-47.0); Hemoglobin 14.1 g/dL (12.0-15.0); Immature Granulocyte Absolute 0.01 K/mm3 (0.00-0.031); Immature Granulocyte Percent A 0.2 % (0-0.5); Lymphocytes Absolute Auto 1.28 K/mm3 (0.9-3.2); Lymphocytes Percent Auto 23.3 % (18.3-44.2); Mean Corpuscular HGB Conc 33.4 g/dl (32-36); Mean Corpuscular Volume 95.7 fl (80-100); Mean Platelet Volume 9.9 fl (7.4-10.4); Monocytes Absolute Auto 0.4 K/mm3 (0.1-0.6); Monocytes Percent Auto 7.8 % (2.6-8.5); Neutrophils Absolute Auto 3.5 K/mm3 (1.3-6.7); Neutrophils Percent Auto 63.9 % (45.5-73.1); Platelet Count Result 208 k/mm3 (150-375); Red Blood Count 4.41 M/mm3 (4.2-5.4); Red Cell Distribution Width 13.1 % (11.5-14.5); White Blood Count 5.5 K/mm3 (4.5-10.0)
[2024-05-02 14:23] LABS: Prothrombin Time 13.8 Seconds (11.1-14.7)
[2024-05-02 14:27] LABS: Alanine Aminotransferase 20 U/L (6-35); Albumin Level 4.4 g/dL (3.5-5.1); Alkaline Phosphatase 76 U/L (38-126); Anion Gap 1 mmol/L (4-12); Aspartate Amino Transferase 36 U/L (14-36); Blood Urea Nitrogen 24 mg/dL (7-17); Calcium 9.4 mg/dL (8.4-10.2); Carbon Dioxide 29 mmol/L (22-30); Chloride 106 mmol/L (98-107); Estimated CRCL calculation 63 ml/min; Estimated Glomerular Filt Rate 45; Glucose 96 mg/dL (65-110); Potassium 4.5 mmol/L (3.4-5.0); Sodium 136 mmol/L (137-145)
--- NOTE | 2024-05-02 14:50 | ED.EXTPRO ---
HPI - Extremity Problem General Chief complaint: Extremity Problem,Nontraumatic Stated complaint: PMD sent in for Poss DVT left lower leg Time Seen by Provider: 05/02/24 12:06 Source: patient and family Mode of arrival: ambulatory Limitations: no limitations History of Present Illness HPI Narrative: He 64-year-old with a history of hypertension, DVT, PE 6 years ago here with a complaint of her left leg pain which started last night. Patient states that she saw her primary doctor this morning at the clinic was advised to come to the ER for venous Doppler study she presently denies having any chest pain or shortness of breath. From she states that she was on Xarelto 8 year Complaint: extremity pain Onset (ago): day(s) (1) Pain Consistency: constant Location: right Quality: aching Radiation: none Relieving factors: nothing Exacerbating factors: nothing Associated symptoms: denies other symptoms Context: other ( history of DVT) Related Data Home Medications ?Medication ?Instructions ?Recorded ?Confirmed ?Last Taken ?Type aspirin 81 mg tablet,delayed 81 mg PO DAILY 02/18/20 11/19/23 03/31/21 09:00 History release calcium carb-ergocalciferol (vit 1 tablet PO BID 02/18/20 11/19/23 03/31/21 17:00 History D2) 500 mg (1,250 mg)-200 unit tablet denosumab 60 mg/mL subcutaneous 60 mg subcut [id number] 02/18/20 11/19/23 07/05/20 09:00 History syringe (Prolia) fiber 2 tablet PO DAILY 02/18/20 11/19/23 03/31/21 17:00 History melatonin 10 mg capsule 10 mg PO HS 02/18/20 11/19/23 03/31/21 21:00 History yfyfdozdsiue-Hq-srqh-minerals 1 tablet PO DAILY 11/26/20 11/19/23 03/31/21 09:00 History (Multiple Vitamin, Womens tablet) vitamin B12 1,000 mcg-folic acid marv sublingual DAILY 12/18/22 11/19/23 Unknown History 400 mcg sublingual lozenge Allergies Allergy/AdvReac Type Severity Reaction Status Date / Time Cephalosporins Allergy Mild N/A Verified 12/19/23 10:37 Penicillins Allergy Unknown hypertensive Verified 12/19/23 10:37 crisis, SOB adhesive tape AdvReac Intermediate Redness of Verified 12/19/23 10:37 Skin Review of Systems Review of Systems: All systems reviewed & are unremarkable except as noted in HPI and below Constitutional: Constitutional: Reports no additional constitutional complaints Eyes: Eyes: Reports no additional eye complaints ENT: Reports system reviewed and no additional complaints, except as documented Cardiovascular: Cardiovascular: Reports no additional cardiovascular complaints Respiratory: Respiratory: Reports no additional respiratory complaints Gastrointestinal: Gastrointestinal: Reports no additional gastrointestinal complaints Musculoskeletal: Musculoskeletal: Reports as per HPI Neurologic: Reports system reviewed and no additional complaints, except as documented Hematologic/Lymphatic: Hematologic/Lymphatic: Reports no additional hematologic/lymphatic complaints Allergic/Immunologic: Allergic/Immunologic: Reports no additional allergic/immunologic complaints [facility] Past Medical History Medical History Breast cancer Lipedema History of pulmonary embolism (~2015) Arthritis Right knee pain Broken ankle Prediabetes Hypocalcemia Vitamin B 12 deficiency Vitamin D deficiency Chronic renal insufficiency, stage III (moderate) Essential hypertension Ankle contracture Hernia Surgical History Surgical History H/O hernia repair x5 Hx of cholecystectomy (~08/19/14) H/O gastric bypass (~02/15/15) Previous section complicating x3 History of laparoscopic appendectomy Aortic valve replaced (~11/05/15) H/O lumpectomy (~12/03/17) H/O bilateral mastectomy (~12/21/17) Family History Family History Mother Family history of malignant neoplasm of breast in first degree relative Cancer Father Hypertension Cerebrovascular accident Other Family history of heart disease in male family member before age 55 Social History Social History Smoking status: Never smoker Second hand tobacco smoke exposure: No Alcohol intake: never Substance use: never Substance use type: does not use Do You Feel Safe in your Home?: Yes Lack of Transportation: No Lack of Food: Never True Current Housing: I Have Housing Concerned About Future Housing: No Difficulty Paying Gas/Electric Bills: No Difficulty Paying for Meds: No Currently Unemployed: No Education: High School Diploma/GED Difficulty w/ Childcare or Family Care: No Living arrangements: with family Gender identity (if verbalized by the patient): Female Sexual Orientation (if Verbalized by the Patient): Straight or Heterosexual Spiritual care concerns: No (Adventism) Agree to blood products: Yes Exam Narrative: GENERAL: Well-appearing, well-nourished, and in no acute distress. HEAD: Normocephalic, atraumatic. EYES: PERRLA and EOMI. ENT: Nares clear, no rhinorrhea or epistaxis. Mucous membranes moist. NECK: Supple. CHEST: Clear to auscultation. No respiratory distress. HEART: Regular rate and rhythm. No murmur heard. Normal peripheral pulses. EXTREMITIES: Normal range of motion. No edema. examination of the left leg shows no evidence of any swelling or redness mild tenderness in the deep calf. SKIN: Warm, dry, no rash. NEURO: No focal deficits. Alert and oriented x3. PSYCH: Normal mood and affect. Course Course Emergency Course: Informed patient about her lab work, venous Doppler studies. I discussed with Dr. Bridges nurse well follow-up in office next week. Advised patient to return to the ER if she has shortness of breath or Chest pain Vital Signs Vital signs: Vital Signs Temperature 36.8 C 05/02/24 10:20 Pulse Rate 78 05/02/24 10:20 Respiratory Rate 18 05/02/24 10:20 Blood Pressure 170/90 H 05/02/24 10:20 Pulse Oximetry 98 05/02/24 10:20 Oxygen Delivery Room Air 05/02/24 10:20 Temperature 36.8 C 05/02/24 10:20 Pulse Rate 78 05/02/24 10:20 Respiratory Rate 18 05/02/24 10:20 Blood Pressure 170/90 H 05/02/24 10:20 Pulse Oximetry 98 05/02/24 10:20 Oxygen Delivery Room Air 05/02/24 10:20 MDM - Extremity (Nontraumatic) Lab Data 05/02/24 14:08 05/02/24 14:08 Labs: Lab Results 05/02/24 Range/Units 14:08 WBC 5.5 (4.5-10.0) K/mm3 RBC 4.41 (4.2-5.4) M/mm3 Hgb 14.1 (12.0-15.0) g/dL Hct 42.2 (37.0-47.0) % MCV 95.7 (80-100) fl MCH 32.0 (26-34) pg MCHC 33.4 (32-36) g/dl RDW 13.1 (11.5-14.5) % Plt Count 208 (150-375) k/mm3 MPV 9.9 (7.4-10.4) fl Immature Gran % (Auto) 0.2 (0-0.5) % Neut % (Auto) 63.9 (45.5-73.1) % Lymph % (Auto) 23.3 (18.3-44.2) % Hall % (Auto) 7.8 (2.6-8.5) % Eos % (Auto) 3.5 (0-4.4) % Baso % (Auto) 1.3 H (0.2-1.2) % Lymph # (Auto) 1.28 (0.9-3.2) K/mm3 Hall # (Auto) 0.4 (0.1-0.6) K/mm3 Eos # (Auto) 0.2 (0-0.3) K/mm3 Baso # (Auto) 0.1 (0.0-0.1) K/mm3 Abs Immat Gran (auto) 0.01 (0.00-0.031) K/mm3 Absolute Neuts (auto) 3.5 (1.3-6.7) K/mm3 Absolute Nucleated RBC 0.000 (0.0-0.012) K/mm3 Nucleated RBC % 0.0 (0.0-0.2) % PT 13.8 (11.1-14.7) Seconds INR 1.0 Sodium 136 L (137-145) mmol/L Potassium 4.5 (3.4-5.0) mmol/L Chloride 106 (98-107) mmol/L Carbon Dioxide 29 (22-30) mmol/L Anion Gap 1 L (4-12) mmol/L BUN 24 H (7-17) mg/dL Creatinine 1.20 H (0.7-1.0) mg/dL Estim Creat Clear Calc 63 ml/min Estimated GFR 45 L (59 - ) Glucose 96 (65-110) mg/dL Calcium 9.4 (8.4-10.2) mg/dL Total Bilirubin 1.0 (0.2-1.3) mg/dL AST 36 (14-36) U/L ALT 20 (6-35) U/L Alkaline Phosphatase 76 (38-126) U/L Total Protein 8.0 (6.3-8.2) g/dL Albumin 4.4 (3.5-5.1) g/dL Discharge Plan Discharge Clinical Impression: DVT (deep venous thrombosis) Qualifiers: DVT location: lower extremity Affected thrombotic vein of extremity: peroneal Chronicity: acute Laterality: left Qualified Code(s): I82.452 - Acute embolism and thrombosis of left peroneal vein Patient Disposition: Home, Self-Care Condition: Stable Instructions: Deep Vein Thrombosis (DC) Additional Instructions: Continue home medication take medication as prescribed follow-up with your primary doctor next week. If you develops chest pain or shortness of breath please return to the ER Patient Language: Sri Lankan Prescriptions: New Xarelto DVT-PE Treat 30d Start 15 mg (42)- 20 mg (9) tablets,dose pack See Rx Instructions .ROUTE .COMPLEX Qty: 51 0RF Rx Instructions: take one-15 mg tablet twice daily for 21 days, then one-20 mg tablet once daily; must take with meal/food Eliquis DVT-PE Treat 30D Start 5 mg (74 tabs) tablets,dose pack See Rx Instructions .ROUTE .COMPLEX Qty: 74 0RF Rx Instructions: orally per package directions No Action aspirin 81 mg tablet,delayed release (DR/EC) 81 mg PO DAILY fiber Tablet,Chewable 2 tablet PO DAILY calcium carbonate-vitamin D2 500 mg(1,250mg) -200 unit tablet 1 tablet PO BID melatonin 10 mg capsule 10 mg PO HS Prolia 60 mg/mL syringe 60 mg subcut [id number] ketoconazole 2 % cream 1 applic topical DAILY Qty: 60 0RF Multiple Vitamin, Womens Tablet 1 tablet PO DAILY Rx Instructions: bariatric women multi-vitamin vitamin [id number] acid 1,000-400 mcg lozenge sublingual DAILY albuterol sulfate 90 mcg/actuation HFA aerosol inhaler 1 - 2 puff inhalation Q4-6H PRN (Reason: shortness of breath or wheezing) Qty: 8.5 2RF triamcinolone acetonide 0.1 % cream 1 applic topical BID PRN (Reason: rash) Qty: 80 0RF Rx Instructions: to legs; pt takes only after a shower metoprolol tartrate 25 mg tablet 25 mg PO BID Qty: 180 1RF furosemide 20 mg tablet 20 mg PO QAM Qty: 90 1RF spironolactone 25 mg tablet 25 mg PO BID Qty: 180 1RF omeprazole 40 mg capsule,delayed release(DR/EC) 40 mg PO DAILY Qty: 90 3RF Follow-up/Referrals: Velma Patterson MD [Primary Care Provider] -
--- NOTE | 2024-05-02 15:37 | PCCCNOTE ---
Called to share a copay savings card for the pt for the rx of Xarelto and Eliquis. The pt does have a managed medicare plan which will not let the pt use the card. Did call the rx to Jennifer at [facility] in [place] with the cost for Xarelto and Eliquis being $250. Called the rx to Darryl to [facility] at in [facility] in [place] with the cost again being $250 for Xarelto and will f/u on the Eliquis with KYRA [email or web address].
--- NOTE | 2024-05-02 17:01 | PCCCNOTE ---
Manolo, from [facility] in [place], returned call regarding the cost of Eliquis. It is $250 as well. Patient and ED notified. Pt will pickle maker the prescription at [facility].
== END 2024-05-02 16:30 | disposition home or self-care (01) ==
PROVIDERS: Emergency Provider Family Medicine; PCP Family Medicine
DX: I82.452 Acute embolism and thrombosis of left peroneal vein (principal); Z86.718 Personal history of other venous thrombosis and embolism; Z86.711 Personal history of pulmonary embolism; Z79.82 Long term (current) use of aspirin; Z85.3 Personal history of malignant neoplasm of breast; E53.8 Deficiency of other specified B group vitamins; E55.9 Vitamin D deficiency, unspecified; N18.30 Chronic kidney disease, stage 3 unspecified; I12.9 Hypertensive chronic kidney disease with stage 1 through stage 4 chronic kidney disease, or unspecified chronic kidney disease
CPT/HCPCS: 36415; 80053; 85025; 85610; 93971; 99284

== ENCOUNTER 2024-06-05 12:04 | Outpatient (CLI) | payer MEDICARE, SELFPAY ==
--- OUTSIDE RECORDS SUMMARY | 2024-06-05 12:53 | XMS_ITS | Encounter Summary ---
Author Organization [facility] Address [address] [place] [address] Phone Care Team Providers Care Manager Mass Name Role Phone Belén Oliveira MD Primary Care [facility] Reason for Visit * Reason Comments Medication Refill Encounter Details Date Type Department Care Team (Late st Contact Info) Description 10/14/2019 Refill [facility] Medical Oncology [address] [place] [id number] Justin Aguiar MD [address] [place] [address] Medication Refill Social History Tobacco Use Types Packs/Day Years Used Date Smoking Tobacco: Never Smokeless Tobacco: Never Alcohol Use Standard Drinks/Week Comments Yes 0 (1 standard drink = 0.6 oz pur e alcohol) rarely Comments No Sex and Gender Information Value Date Recorded Sex Assigned at Not on file Legal Sex Female 3:38 PM CDT Gender Identity Not on file Sexual Orientation Not on file documented as of this encounter Miscellaneous Notes * Telephone Encounter - Nida Antonio RN - 10/14/2019 3:43 PM CDT Refilled Letrozole documented in this encounter Plan of Treatment Not on file documented as of this encounter Visit Diagnoses Diagnosis Invasive ductal carcinoma of breast, stage 1, 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
--- OUTSIDE RECORDS SUMMARY | 2024-06-05 12:53 | XMS_ITS ---
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 ure 04/18/2019 Invasive ductal carcinoma of breast, stage 1, ri ght 01/03/2018 Invasive ductal carcinoma of breast, stage 1, le ft 01/03/2018 Invasive ductal carcinoma of breast, stage 2, le ft 01/03/2018 Postmenopausal state 01/03/2018 Osteopenia of both hips Current Treatment and Therapy Plans SUPPORT - PROLIA (DENOSUMAB) - OSTEOPENIA* Plan Start Date:05/11/2019 Plan Provider:Justin Aguiar MD Linked Problems Invasive ductal carcinoma of breast, stage 1, right (HCC)Postmenopausal stateOsteoporosis of femur without pathological fracture Treatment Medications Current Day (DILCIA COL ACTIVATION, PROTOCOL ACTIVATION ORDERS - Planned for 05/11/2019) Next Day (Day 1, Cycle 1 - Planned for 05/12/2019) No medications scheduled. No medications schedul ed. No medications scheduled. Past Treatment and Therapy Plans No past plan information found.
--- OUTSIDE RECORDS SUMMARY | 2024-06-05 12:53 | XMS_ITS | Clinical Summary ---
Author Organization [facility] Address [address] [place] [address] Phone Care Team Providers Care Design Tech Name Role Phone Belén Oliveira MD Primary Care Provi leo Allergies Active Allergy Reactions Criticality Noted Date Comments Other Rash 01/02/2018 Adhesive Tape Penicillins Anaphylaxis High 01/02/2018 Medications aspirin 81 MG Chewable Tablet Take 81 mg by mouth daily. Active Inulin (FIBER CHOICE PO) Take by mouth. Active HYDROcodone-acet aminophen (NORCO) 5-325 MG Tablet 0 12/28/2017 Active Melatonin 10 MG Tablet Controlled Release Take by mouth. Active metoprolol tartrate (LOPRESSOR) 25 MG Tablet TAKE 1 TABLET BY MOUTH TWICE DAILY 12/13/2017 Active Multiple Vitamin (MULTI-VITAMINS) Tablet take 1 by Oral route once 08/28/2013 Active spironolactone (ALDACTONE) 25 MG Tablet Take by mouth. 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 04/18/2019 Invasive ductal carcinoma of breast, stage 1, ri ght 01/03/2018 Invasive ductal carcinoma of breast, stage 1, le ft 01/03/2018 Invasive ductal carcinoma of breast, stage 2, le ft 01/03/2018 Postmenopausal state 01/03/2018 Osteopenia of both hips Family History Medical History Relation Name Comments Hypertension Father Stroke Father Breast Cancer Mother Relation Name Status Comments Father Mother (Age 48) Breast Ca Social History Tobacco Use Types Packs/Day Years Used Date Smoking Tobacco: Never Smokeless Tobacco: Never Alcohol Use Standard Drinks/Week Comments Yes 0 (1 standard drink = 0.6 oz pur e alcohol) rarely Comments No Sex and Gender Information Value Date Recorded Sex Assigned at Not on file Legal Sex Female 3:38 PM CDT Gender Identity Not on file Sexual Orientation Not on file Last Filed Vital Signs Vital Sign Reading Time Taken Comments Blood Pressure 150/71 04/18/2019 1:39 PM CARE TECH Pulse 58 04/18/2019 1:39 PM CARE TECH Temperature 36.2 ??C (97.2 ??F) 04/18/2019 1:39 PM CS T Respiratory Rate 20 04/18/2019 1:39 PM CARE TECH Oxygen Saturation 99% 04/18/2019 1:39 PM CARE TECH Inhaled Oxygen Concentration - - Weight 149.5 kg (329 lb 9.6 oz) 04/18/2019 1:39 PM CARE TECH Height 172.7 cm (5' 8 ) 04/18/2019 1:39 PM CARE TECH Body Mass Index 50.12 04/18/2019 1:39 PM CARE TECH Plan of Treatment Health Maintenance Due Date Last Done Comments Hepatitis C Virus (HCV) Screening 1960 TdaP Immunization 1958 Zoster Immunization (1 of 2) 1977 Pap Smear 1979 Cervical Cancer Screening (CCS) 1988 HPV/Cotest 1988 Colonoscopy 2003 Colorectal Cancer Screening 2003 Cologuard 2008 Immunochemical Fecal Occult Blood 2008 Pneumococcal Immunization (50+ years) (2 of 2 - PCV) 01/21/2017 01/22/2016 Respiratory Syncytial Virus (RSV) Immunization (Adult) (1 - Risk 60-74 years 1-dose series) 2018 DEXA Bone Density 03/09/2023 03/09/2021, , 09/24/2017 Influenza Immunization (#1) 2024 SARS-COV-2 Immunization ( season) 2024 08/16/2021, 03/04/2021, 08/04/2020, Additional history exists Pneumococcal Immunization Combined Discontinued 01/22/2016 Mammogram Unilateral Discontinued 10/29/2017, 10/30/19 18 Hepatitis B Immunization Aged Out No longer eligible based on patient's age to complete this topic Meningococcal Immunization (ACWY) Aged Out No longer eligible based on patient's age to complete this topic Rotavirus Immunization Aged Out No lo nger eligible based on patient's age to complete this topic Procedures Procedure Name Priority Date/Time Associated Diagnosis Comments [facility] BONE DENSITOMETRY AXIAL SKELETON Routine 10/29/2018 7:46 AM CDT Osteopenia of both hips Invasive ductal carcinoma of breast, stage 1, right (HCC) Postmenopausal state [facility] MRI BREAST W/WO CONTRAST,BILATERAL Routine 10/29/2017 from Last 3 Months or Most Recently Relevant to Health Maintenance Results * [facility] BONE DENSITOMETRY AXIAL SKELETON (10/29/2018 7:46 AM CDT) Anatomical Region Laterality Modality BODY N/A Other 10/29/2018 8:19 AM CDT Impressions 10/29/2018 8:21 AM CDT IMPRESSION: ?? 1. ??Lumbar spine correlates with normal bone mineral density. 2. ??Total left hip correlates with low bone mass, noting left femoral neck correlates with osteoporosis. REFERENCE: ??Bone mineral density: ? Normal (T-score above or = -1.0) ? Low bone mass ??(T-score between -1.0 and -2.5) replaces the previously used term osteopenia ? Osteoporosis (T-score = or below -2.5) Medical evaluation for secondary causes of low bone mineral density may be appropriate. FRAX is a World Health Organization validated fracture risk assessment tool that calculates a person's 10 year probability of a major osteoporosis related fracture and hip fracture. ??According to the National Osteoporosis Foundation guidelines, postmenopausal women and men age 50 or older with low bone mass and a 10 year probability of a major osteoporosis related fracture = or greater than 20% or a 10 year probability of a hip fracture = or greater than 3% should be considered for treatment. For further information, including treatment recommendations, please refer to the 2013 ISCD Official Positions (http://www.iscd.org) and the NOF's Clinician's Guide to Prevention and Treatment of Osteoporosis (http://www.nof.org/professionals/clinical-guidelines) Narrative 10/29/2018 8:21 AM CDT EXAM DESCRIPTION: ??[facility] BONE DENSITOMETRY AXIAL SKELETON REASON FOR STUDY: ?? 58 y/o ??year old F with given history of screening. Lamp Stack Developer/Model: ??Invenshure ([id number]/N [id number]) CLINICAL INFORMATION: ??Current height: 68.0 inches ? Maximum height: Not available Weight: 320.0 pounds Risk factors: History of fracture as an adult (of unspecified site). COMPARISON: ??None available. FINDINGS: ??AP LUMBAR SPINE L1-L4: Total BMD is 1.183 g/cm2 T-score is -0.1 LEFT HIP: Total BMD is 0.777 g/cm2 T-score is -1.8 Femoral neck BMD is 0.645 g/cm2 T-score is -2.8 THIS IS AN ELECTRONICALLY VERIFIED FINAL REPORT 10/29/2018 8:19 AM - Electronically signed by Nic Ramirez M.D. GINI: GINI D: ??10/29/2018 8:19 AM T: ??10/29/2018 8:19 AM Report ID: [id number] Reading Location: ??[id number] Procedure Note Nic Ramirez MD - 10/29/2018 EXAM DESCRIPTION: [facility] BONE DENSITOMETRY AXIAL SKELETON REASON FOR STUDY: 58 y/o year old F with given history of screening. Lamp Stack Developer/Model: Invenshure (S/N [id number]) CLINICAL INFORMATION: Current height: 68.0 inches Maximum height: Not available Weight: 320.0 pounds Risk factors: History of fracture as an adult (of unspecified site). COMPARISON: None available. FINDINGS: AP LUMBAR SPINE L1-L4: Total BMD is 1.183 g/cm2 T-score is -0.1 LEFT HIP: Total BMD is 0.777 g/cm2 T-score is -1.8 Femoral neck BMD is 0.645 g/cm2 T-score is -2.8 THIS IS AN ELECTRONICALLY VERIFIED FINAL REPORT 10/29/2018 8:19 AM - Electronically signed by Nic Ramirez M.D. GINI: GINI Report ID: [id number] Reading Location: [id number] IMPRESSION: 1. Lumbar spine correlates with normal bone mineral density. 2. Total left hip correlates with low bone mass, noting left femoral neck correlates with osteoporosis. REFERENCE: Bone mineral density: Normal (T-score above or = -1.0) Low bone mass (T-score between -1.0 and -2.5) replaces the previously used term osteopenia Osteoporosis (T-score = or below -2.5) Medical evaluation for secondary causes of low bone mineral density may be appropriate. FRAX is a World Health Organization validated fracture risk assessment tool that calculates a person's 10 year probability of a major osteoporosis related fracture and hip fracture. According to the National Osteoporosis Foundation guidelines, postmenopausal women and men age 50 or older with low bone mass and a 10 year probability of a major osteoporosis related fracture = or greater than 20% or a 10 year probability of a hip fracture = or greater than 3% should be considered for treatment. For further information, including treatment recommendations, please refer to the 2013 ISCD Official Positions (http://www.iscd.org) and the NOF's Clinician's Guide to Prevention and Treatment of Osteoporosis (http://www.nof.org/professionals/clinical-guidelines) Justin Aguiar MD IMG DEXA ORDERABLES Final Result * [facility] MRI BREAST W/WO CONTRAST,BILATERAL (10/29/2017) Anatomical Region Laterality Modality breast Bilateral Other Khloe RIBERA MR ORDERABLES Final Res ult from Last 3 Months or Most Recently Relevant to Health Maintenance Insurance [facility] SHARED hydrator Care Teams Design Tech Relationship Specialty Start Date End Date Belén Oliveira MD [address] [place] [address] PCP - General Family Medicine 01/02/18
--- OUTSIDE RECORDS SUMMARY | 2024-06-05 12:53 | XMS_ITS | Clinical Summary ---
Author Organization [facility] Address [address] [place] [address] Care Team Providers Care Channel Executive Name Role Phone Velma Patterson MD Primary Care Provider [phone] Allergies Active Allergy Reactions Criticality Noted Date Comments Adhesive Other (See Comments) Low 09/17/2018 Reaction: Other Erythromycin Diarrhea Low Penicillins Anaphylaxis,Hives High 10/26/2017 Unclassified Drug Rash Low 01/02/2018 Medications aspirin (SUKUMAR CHEWABLE) 81 mg Tablet, Chewable 81 mg. 6 Active melatonin 10 mg Tablet Sustained Release Take 10 mg by mouth. Active spironolactone (ALDACTONE) 25 mg tablet Take 25 mg by mouth. 8 Active FIBER CHOICE ORAL Take by mouth 2 times daily. Active calcium-choleca lciferol (OS-GRIS 500+D) 500 mg(1,250mg) -200 unit tablet Take 1 Tablet by mouth 2 times daily with meals. Active metoprolol tartrate (LOPRESSOR) 25 mg tablet TAKE 1 TABLET BY MOUTH TWICE DAILY 8 Active multivitamin (DAILY-BILL) tablet take 1 by Oral route once 4 Active triamcinolone acetonide (KENALOG) 0.1 % Cream APPLY BID PRN TO RASH 0 Active albuterol HFA 90 mcg inhaler INHALE 1 PUFF PO Q 4 H PRN 0 Active denosumab (PROLIA) 60 mg/mL Syringe Inject 60 mg by subcutaneous injection. Active acidophilus-pec tin, citrus 100 million cell-10 mg Capsule Take by mouth. Acti ve omeprazole (PriLOSEC) 10 mg Capsule, Delayed Release(E.C.) Take 10 mg by mouth daily. Active furosemide (LASIX) 20 mg tablet Take 20 mg by mouth daily. Active letrozole (FEMARA) 2.5 mg tabletIndicatio ns:Malignant neoplasm of upper-outer quadrant of left breast in female, estrogen receptor positive (CMS/HCC) Take 1 Tablet (2.5 mg) by mouth daily. 90 Tablet 4 3 Active Active Problems Problem Noted Date Diagnosed Date Morbid obesity with BMI of 50.0-59.9, adult 01/06 Muscle spasm 05/30/2018 Scar conditions/skin fibrosis 05/30/2018 Absence of both breasts 01/23/2018 Erythema of breast 12/28/2017 Malignant neoplasm of centra l portion of right breast in female, estrogen receptor positive 12/11/2017 Estrogen receptor positive 12/11/2017 Ductal carcinoma in situ (DCIS) of left breast 0 12/11/2017 Ductal carcinoma in situ (DCIS) of right breast 10/26/2017 Malignant neoplasm of upper- outer quadrant of left breast in female, estrogen receptor positive 10/26/2017 Resolved Problems Problem Noted Date Diagnosed Date Resolved Date Morbid obesity with body mas s index of 40.0-49.9 10/26/2017 01/30/2019 Encounters Date Type Department Care Team Description 06/03/2024 External Device Data [facility] ABSTRACTION Provider, Abstract 05/28/2024 External Device Data [facility] AB[facility]CTION Provider, Abstract 05/28/2024 External Device Data [facility]CTION Provider, Abstract 05/21/2024 External Device Data [facility]CTION Provider, Abstract 05/13/2024 External Device Data [facility] ABSTRACTION Provider, Abstract from Last 3 Months Family History Medical History Relation Name Comments Heart Disease Father Breast Cancer Mother at 48 Relation Name Status Comments Brother Father Mother Sister Alive Social History Tobacco Use Types Packs/Day Years Used Date Smoking Tobacco: Never Smokeless Tobacco: Never Tobacco Cessation:Counseling Given: Not Answered Alcohol Use Standard Drinks/Week Comments Yes 0 (1 standard drink = 0.6 oz pur e alcohol) rare Comments No Sex and Gender Information Value Date Recorded Sex Assigned at Not on file Legal Sex Female 12:24 PM CDT Gender Identity Not on file Sexual Orientation Not on file Last Filed Vital Signs Vital Sign Reading Time Taken Comments Blood Pressure 128/69 01/23/2024 11:39 AM CDT Pulse 67 01/23/2024 11:39 AM CDT Temperature 36.1 ??C (96.9 ??F) 01/23/2024 11:39 AM C DT Respiratory Rate 16 01/23/2024 11:39 AM CDT Oxygen Saturation 97% 01/23/2024 11:39 AM CDT Inhaled Oxygen Concentration - - Weight 148.8 kg (328 lb) 01/23/2024 11:39 AM CDT Height 172.7 cm (5' 8 ) 01/10/2022 9:17 AM CDT Body Mass Index 49.87 01/10/2022 9:17 AM CDT Plan of Treatment Upcoming Encounters Date Type Department Care Team (Late st Contact Info) Description 07/31/2024 11:00 AM CDT Office Visit [facility] Oncology and Hematology [facility] [address] [facility] [address] [place] [address] Memo Adams MD [address] [facility] [address] [place] [address] Health Maintenance Due Date Last Done Comments Pre-Diabetes and Diabetes Screening 1958 DTAP/TDAP/TD VACCINES (1 - Tdap) 1977 COLORECTAL SCREENING 2003 Colorectal Cancer Screening 2003 FIT-DNA Q 3 years 2003 FIT/FOBT Q 1 year 2003 Flex Sig/CT Colonography Q 5 years 2003 PNEUMOCOCCAL VACCINE 65+ YEA RS (1 of 1 - PCV) 2008 ZOSTER VACCINE (1 of 2) 2008 RSV VACCINE (60+ or ) (1 - Risk 60-74 years 1-dose series) 2018 BREAST CANCER SCREENING 01/31/2020 01/31/20, 10/30/2018, 08/28/2018, Additional history exists INFLUENZA VACCINE (#1) 2023 OSTEOPOROSIS SCREENING Completed , 03/09/2021, 10/29/2018, Additional history exists Procedures Procedure Name Priority Date/Time Associated Diagnosis Comments XR DEXA BONE DENSITY AXIAL 1 OR MORE SITES Routine 03/09/2021 Osteoporosis, unspecified osteoporosis type, unspecified pathological fracture presence from Last 3 Months or Most Recently Relevant to Health Maintenance Results * (ABNORMAL) XR DEXA BONE DENSITY AXIAL 1 OR MORE SITES (03/09/2021) Anatomical Region Laterality Modality Other Memo Adams MD DIAGNOSTIC IMAGING ORDERABLES F inal Result from Last 3 Months or Most Recently Relevant to Health Maintenance [place] [address] [address] [facility]IC[facility] AND B [facility] PPO [place]Z [id number] Care Teams Channel Executive Relationship Specialty Start Date End Date Velma Patterson MD [address] [place] [address] PCP - General Family Practice 04/22/20
--- OUTSIDE RECORDS SUMMARY | 2024-06-05 12:54 | XMS_ITS | Patient Health Summary ---
Author Organization [facility] Address [address] [place] [address] Care Team Providers Care Cloth Layer Name Role Phone Mark Claros MD Primary Care Provider [phone] Note from [facility],non-owned Affiliates and Associated Physician Practices is amultiple site organization consisting of ambulatory clinics and hospital sitesin [place], [place], [place] and [place]. This disclosure is being madepursuant to the Care Everywhere program and may not contain all information available regarding this patient. Last updated 18.[facility] Social History Tobacco Use Types Packs/Day Years Used Date Smoking Tobacco: Never Assessed Sex and Gender Information Value Date Recorded Sex Assigned at Not on file Gender Identity Not on file Sexual Orientation Not on file Procedures * MRI BREAST BILAT WWO CONTRAST(Performed 10/29/2017) Performed for Ductal carcinoma in situ (DCIS) of right breast, Malignant neoplasm of upper-outer quadrant of both breasts in female, estrogen receptor positive (HCC) Results * (ABNORMAL) MRI BREAST BILAT WWO CONTRAST (10/29/2017 9:19 AM CDT) Anatomical Region Laterality Modality Breast Bilateral Magnetic Resonan ce 10/29/2017 3:53 PM CDT Impressions 10/29/2017 4:51 PM CDT IMPRESSION: BI-RADS category 6, known malignancy. Right breast mass measuring up to 4 cm with adjacent areas of nonmass enhancement appears larger than that seen on the mammogram, but corresponds to known malignancy. Left breast mass measuring 1.5 cm corresponds to known malignancy. Possible multiple thyroid nodules. Clinical correlation recommended. RECOMMENDATION: ??Surgical management per the patient's breast surgeon. This report was electronically signed by BAHMAN BUSTAMANTE M.D. ??on 10/29/2017 4:51 PM . Narrative 10/29/2017 4:51 PM CDT MRI of the breasts with and without contrast COMPARISON: Post biopsy mammograms on 10/11/2017 as well as screening mammograms performed 09/24/2017 and diagnostic images performed 09/27/2017. Bilateral breast ultrasound performed 09/27/2017 was also available for review. HISTORY: D05.11: Ductal carcinoma in situ (DCIS) of right breast C50.411: Malignant neoplasm of upper-outer quadrant of both breasts in female, estrogen receptor positive Z17.0: Malignant neoplasm of upper-outer quadrant of both breasts in female, estrogen receptor positive C50.412: Malignant neoplasm of upper-outer quadrant of both breasts in female, estrogen receptor positive TECHNIQUE: Multiplanar multisequence MR imaging of both breasts before and following the administration of intravenous gadolinium contrast. Dynamic phase imaging was performed in the axial plane. Exam processed by and interpreted on a [employer] service observer chief including 3-D volume rendering, subtraction image processing and contrast kinetic analysis. 10 cc of Gadovist intravenous. FINDINGS: Degree of postcontrast parenchymal enhancement: Mild and symmetric. Amount of fibroglandular tissue: ??Scattered fibroglandular tissue RIGHT: An irregular enhancing mass with washout kinetics is noted in the subareolar inner right breast, near 3:00, measuring approximately 4.1 x 2.5 cm in size. While the mass is 2 cm from the nipple, linear abnormal enhancement extends into the nipple. Just inferior to the dominant mass in the lower inner right breast is 3.5 x 2.5 cm of nonmass enhancement. A biopsy marker is noted 1 cm posterior to the mass. Small linear areas of nonmass enhancement measuring less than 1 cm are noted in the lower outer right breast (see image 130 series 6, and image 115 series 6), indeterminate. Additional circumscribed masses seen in the upper outer right breast contain fatty darrin and are consistent with intramammary lymph nodes. Right axillary lymph nodes are not enlarged. LEFT: An irregular enhancing left breast mass measuring 1.5 cm is noted in the upper outer left breast, 2.5 cm deep to the nipple containing a biopsy marker and consistent with biopsy-proven malignancy. The nipple enhances to a normal degree. In addition, just superior and medial to this mass is a 5 mm oval enhancing mass with washout kinetics which is indeterminate and not noted on the prior mammograms, indeterminate. Left axillary lymph nodes are not enlarged. What likely represents multiple large thyroid nodules measuring up to 2.5 cm are partially visualized. This region is obscured by artifact from the patient's sternotomy wires. Khloe Hartman DO MR ORDERABLES Care Teams Cloth Layer Relationship Specialty Start Date End Date Mark Claros MD [address] [place] [place], [place] [id number] PCP - General 10/15/17
--- OUTSIDE RECORDS SUMMARY | 2024-06-05 12:54 | XMS_ITS | Referral Summary ---
Author Organization [facility] Address [address] [place] [address] Care Team Providers Care Camera Storage Clerk Name Role Phone Mark Claros MD Primary Care Provider [phone] Source Comments [facility],non-owned Affiliates and Associated Physician Practices is amultiple site organization consisting of ambulatory clinics and hospital sitesin [place], [place], [place] and [place]. This disclosure is being madepursuant to the Care Everywhere program and may not contain all information available regarding this patient. Last updated 18.[facility] Social History Tobacco Use Types Packs/Day Years Used Date Smoking Tobacco: Never Assessed Sex and Gender Information Value Date Recorded Sex Assigned at Not on file Gender Identity Not on file Sexual Orientation Not on file Plan of Treatment Not on file Care Teams Camera Storage Clerk Relationship Specialty Start Date End Date Mark Claros MD [address] [place] [address] PCP - General 10/15/17
--- OUTSIDE RECORDS SUMMARY | 2024-06-05 12:54 | XMS_ITS | Clinical Summary ---
Author Organization [facility] Address [address] [place] [address] Care Team Providers Care Rotary Envelope Machine Operator Name Role Phone Mark Claros MD Primary Care Provider Source Comments [facility],non-owned Affiliates and Associated Physician Practices is amultiple site organization consisting of ambulatory clinics and hospital sitesin [place], [place], [place] and [place]. This disclosure is being madepursuant to the Care Everywhere program and may not contain all information available regarding this patient. Last updated 18.[facility] [employer] Social History Tobacco Use Types Packs/Day Years Used Date Smoking Tobacco: Never Assessed Sex and Gender Information Value Date Recorded Sex Assigned at Not on file Gender Identity Not on file Sexual Orientation Not on file Plan of Treatment Health Maintenance Due Date Last Done Comments BONE DENSITY TESTING 1960 COLOGUARD (AGES 45-75) - COL ON CA SCREENING 1958 COLON MONITORING 1958 COLONOSCOPY - COLON CA SCREENING 1958 CT COLONOGRAPHY - COLON CA SCREENING 1958 Colorectal Cancer Screening 1958 FIT - COLON CA SCREENING 1958 FLEX SIG - COLON CA SCREENING 1958 LIPID TESTING 1958 MAMMOGRAM 1958 HEPATITIS C SCREENING 03/02/1976 DTAP/TDAP/TD VACCINES (1 - Tdap) 1977 PNEUMOCOCCAL VACCINE 50+ (1 of 1 - PCV) 2008 ZOSTER VACCINE (1 of 2) 2008 COVID-19 VACCINE ( - 2023-2 5 season) 2024 INFLUENZA VACCINE (#1) 2024 DEPRESSION SCREENING 05/07/2024 Respiratory Syncytial Virus (RSV) Vaccine Pt: or over 60 yrs (1 - 1-dose 75+ series) 2033 HEPATITIS B VACCINE Aged Out No longe r eligible based on patient's age to complete this topic HIB VACCINE Aged Out No longer eligi ble based on patient's age to complete this topic HPV VACCINE Aged Out No longer eligi ble based on patient's age to complete this topic MENINGOCOCCAL (Group B) VACCINE Aged Out No longer eligible based on patient's age to complete this topic MENINGOCOCCAL VACCINE Aged Out No hortensia gallito eligible based on patient's age to complete this topic Care Teams Rotary Envelope Machine Operator Relationship Specialty Start Date End Date Mark Claros MD [address] [place] [address] PCP - General 10/15/17
--- OUTSIDE RECORDS SUMMARY | 2024-06-05 12:54 | XMS_ITS | Encounter Summary ---
Author Organization [facility] Address [address] [place] [address] Care Team Providers Care Rescue Boat Operator Name Role Phone Velma Patterson MD Primary Care Provider [phone] Encounter Details Date Type Department Care Team (Late Contact Info) Description 11/06/2017 Chart Note [facility] Radiation Therapy [address] [place] [address] [place] [address] [place] [address] Social History Tobacco Use Types Packs/Day Years [...] on file documented as of this encounter Plan of Treatment Upcoming Encounters Date Type Department Care Team (Late Contact Info) Description 07/31/2024 11:00 AM CDT Office Visit [facility] Oncology and Hematology - [place] [address] [facility] [address] [place] [address] Memo Adams MD [address] [facility] [address] [place] [address] documented as of this encounter Visit Diagnoses Not on filedocumented in this encounter Care Teams Rescue Boat Operator Relationship Specialty Start Date End Date Velma Patterson MD [address] [place] [address] PCP - General Family Practice 04/22/20 documented as of this encounter
--- OUTSIDE RECORDS SUMMARY | 2024-06-05 12:54 | XMS_ITS | Encounter Summary ---
Author Organization [facility] Address [address] [place] [address] Care Team Providers Care Passenger Relations Representative Name Role Phone Velma Patterson MD Primary Care Provider [phone] Encounter Details Date Type Department Care Team (Late st Contact Info) Description 06/03/2024 External Device Data STL ABSTRACTION Provider, Abstract NO ADDRESS ON FILE Social History Tobacco Use Types Packs/Day Years [...] Description 07/31/2024 11:00 AM CDT Office Visit [facility] Oncology and Hematology - [place] [address] [place] [address] [address] [place] [address] [place] [address] documented as of this encounter Visit Diagnoses Not on filedocumented in this encounter Care Teams Passenger Relations Representative Relationship Specialty Start Date End Date Velma Patterson MD [address] [place] [address] PCP - General Family Practice 04/22/20 documented as of this encounter
[2024-06-05 13:12] LABS: Influenza A QL RT-PCR Negative (Negative); Influenza B QL RT-PCR Negative (Negative); RSV RNA, RT-PCR Negative (Negative); SARS-CoV-2 RNA PCR Negative (Negative)
== END 2024-06-05 12:05 | disposition home or self-care (01) ==
LOC: ANHLAB 12:05
PROVIDERS: PCP Family Medicine; Visit Provider Student in an Organized Health Care Education/Training Program
DX: R50.9 Fever, unspecified (principal); R05.9 Cough, unspecified; R09.81 Nasal congestion; Z20.822 Contact with and (suspected) exposure to COVID-19
CPT/HCPCS: 87637

== ENCOUNTER 2024-08-12 10:04 | Outpatient (CLI) | payer MEDICARE, SELFPAY ==
--- NOTE | ~2024-08-12 | US_ITS ---
LEFT LOWER EXTREMITY VENOUS ULTRASOUND Ordering provider: Velma Patterson MD History: . M79.89 - Other specified soft tissue disorders . Comparison: None. FINDINGS: --COMMON FEMORAL: Patent and free of thrombus. Normal compressibility, phasic flow and augmentation. --PROXIMAL SUPERFICIAL FEMORAL: Patent and free of thrombus. Normal compressibility, phasic flow and augmentation. --DISTAL SUPERFICIAL FEMORAL: Patent and free of thrombus. Normal compressibility, phasic flow and au gmentation. --POPLITEAL: Patent and free of thrombus. Normal compressibility, phasic flow and augmentation. --POSTERIOR TIBIAL: Patent and free of thrombus. Normal compressibility, phasic flow and augmentation . IMPRESSION: Negative left lower extremity venous US. No deep vein thrombosis. Reviewed, dictated and finalized at location A.
--- OUTSIDE RECORDS SUMMARY | 2024-08-12 11:14 | XMS_ITS ---
Author Organization [facility] Address [address] [place] [address] Phone Care Team Providers Care Compressor Mechanic Bus Name Role Phone Belén Oliveira MD Primary [...] Invasive ductal carcinoma of breast, stage 1, rightPostmenopausal stateOsteoporosis of femur without pathological fracture Treatment Medications Current Day (DILCIA COL ACTIVATION, PROTOCOL ACTIVATION ORDERS - Planned for 05/11/2019) Next Day (Day 1, Cycle 1 - Planned for 05/12/2019) No medications scheduled. No medications schedul ed. No medications scheduled. Past Treatment and Therapy Plans No past plan information found.
--- OUTSIDE RECORDS SUMMARY | 2024-08-12 11:14 | XMS_ITS | Clinical Summary ---
Author Organization [facility] Address [address] [place] [address] Care Team Providers Care Numerical Analysis Group Manager Name Role Phone Velma Patterson MD Primary Care Provider [phone] Allergies Active Allergy Reactions Criticality Noted Date [...] mouth daily. 90 Tablet 4 3 Active Eliquis 5 mg tablet Take 1 Tablet by mouth 2 times daily. 5 Active Active Problems Problem Noted Date Diagnosed [...] Encounters Date Type Department Care Team Description 07/31/2024 11:00 AM CDT Office Visit [facility] Oncology and Hematology [facility] [address] [place] [address] Memo Adams MD Malignant neoplasm of upper-outer quadrant of left breast in female, estrogen receptor positive (CMS/HCC) (Primary Dx); Osteoporosis, unspecified osteoporosis type, unspecified pathological fracture presence; Acute deep vein thrombosis (DVT) of proximal vein of left lower extremity (CMS/HCC) 07/30/2024 Orders Only [facility] Oncology and Hematology [facility] [address] [place] [address] Memo Adams MD 07/08/2024 External Device Data STL ABSTRACTION Provider, Abstract 06/25/2024 External Device Data STL ABSTRACTION Provider, Abstract 06/24/2024 External Device Data STL ABSTRACTION Provider, Abstract 06/03/2024 External Device Data STL ABSTRACTION Provider, [...] Sign Reading Time Taken Comments Blood Pressure 130/70 07/31/2024 11:04 AM CDT Pulse 57 07/31/2024 11:04 AM CDT Temperature 36.2 C (97.2 F) 07/31/2024 11:04 AM CDT Respiratory Rate 16 07/31/2024 11:0 4 AM CDT Oxygen Saturation 98% 07/31/2024 11: 04 AM CDT Inhaled Oxygen Concentration - - Weight 145.3 kg (320 lb 6.4 oz) 025 11:04 AM CDT Height 172.7 cm (5' 8 ) 01/10/2022 9:17 AM CDT Body Mass Index 48.72 01/10/2022 9:17 AM CDT Plan of Treatment Upcoming Encounters Date Type Department Care Team (Late st Contact Info) Description 08/19/2024 4:00 PM CDT Telephone Check Up [facility] Oncology and Hematology - [place] [address] [address] [place] [address] Memo Adams MD [address] [facility] [address] [place] [address] 02/02/2025 11:30 AM CDT Office Visit [facility] Oncology and Hematology - [place] [address] [facility] [address] [place] [address] Memo Adams MD [address] [facility] [address] [place] [address] Health Maintenance Due Date Last Done Comments Pre-Diabetes and Diabetes Screening 1958 DTAP/TDAP/TD VACCINES (1 - Tdap) 1977 COLORECTAL SCREENING 2003 Colorectal Cancer Screening 2003 FIT-DNA Q 3 years 2003 FIT/FOBT Q 1 year 2003 Flex Sig/CT Colonography Q 5 years 2003 PNEUMOCOCCAL VACCINE 50+ YEA RS (1 of 1 - PCV) 2008 ZOSTER VACCINE (1 of 2) 2008 RSV VACCINE (60+ or ) (1 - Risk 60-74 years 1-dose series) 2018 INFLUENZA VACCINE (#1) 2023 Preventative Visit- Commercial 05/07/2024 OSTEOPOROSIS SCREENING Completed , 03/09/2021, 10/29/2018, Additional history exists Procedures Procedure Name Priority Date/Time Associated Diagnosis Comments CHG CA 15 3 Routine 07/29/2024 2:21 PM CDT XR DEXA BONE DENSITY AXIAL 1 OR MORE SITES Routine 03/09/2021 Osteoporosis, unspecified osteoporosis type, unspecified pathological fracture presence from Last 3 Months or Most Recently Relevant to Health Maintenance Results * CHG CA 15 3 (07/29/2024 2:21 PM CDT) Memo Adams MD [facility] - LABORATORY Final Result * (ABNORMAL) XR DEXA BONE DENSITY AXIAL 1 OR MORE SITES (03/09/2021) Anatomical Region Laterality Modality Other us Memo Adams MD DIAGNOSTIC IMAGING ORDERABLES F inal Result from Last 3 Months or Most Recently Relevant to Health Maintenance [place] [address] MEDICARE PART A AND B [employer] [address] [place] [address] MEDICARE PART A AND B Care Teams Numerical Analysis Group Manager Relationship Specialty Start Date End Date Velma Patterson MD [address] [place] [address] PCP - General Family Practice 04/22/20
--- OUTSIDE RECORDS SUMMARY | 2024-08-12 11:14 | XMS_ITS | Clinical Summary ---
Author Organization [facility] Address [address] [place] [address] Care Team Providers Care Drawing Box Tender Name Role Phone Mark Claros MD Primary Care Provider [phone] Source Comments [facility],non-owned Affiliates and Associated Physician Practices is amultiple site organization consisting of ambulatory clinics and hospital sitesin [place], [place], [place]. This disclosure is being madepursuant to the Care Everywhere program and may not contain all information available regarding this patient. Last updated 18.[facility] [employer] Social History Tobacco Use Types Packs/Day Years [...] VACCINE ( - 2023-2 5 season) 2024 DEPRESSION SCREENING 05/07/2024 INFLUENZA VACCINE (Season Ended) 2025 Respiratory Syncytial Virus (RSV) Vaccine Pt: or [...] to complete this topic MENINGOCOCCAL (Group B) VACC INE SHARED DECISION-MAKING Aged Out No longer eligibl e based on patient's age to complete this topic MENINGOCOCCAL GROUPS A/C/Y/W VACCINE Aged Out No longer eligible b ased on patient's age to complete this topic Care Teams Drawing Box Tender Relationship Specialty Start Date End Date Mark Claros MD [address] [place] [address] PCP - General 10/15/17
--- OUTSIDE RECORDS SUMMARY | 2024-08-12 11:14 | XMS_ITS | Clinical Summary ---
Author Organization [facility] [address] Address [address] [place] [address] Care Team Providers Care Employee Counselor Name Role Phone Velma Patterson MD Primary Care Provider [phone] Allergies Active Allergy Reactions Criticality Noted Date Comments Adhesive Other (See comments) Low 09/17/2018 Reaction: Other Erythromycin Diarrhea Low Penicillins Hives Medium Medications aspirin 81 mg chewable tablet chew 1 tablet by oral route every day 0 0 6 Active melatonin 10 mg tablet extended release Take 10 mg by mouth nightly as needed. Active FIBER CHOICE, INULIN, ORAL Take by mouth 2 times daily Active calcium carbonate-vitam in D3 1,250mg (500mg elemental) - 200 units per tablet Take 1 tablet by mouth Active denosumab (PROLIA) 60 mg/mL syringe Inject 1 mL (60 mg total) under the skin every 6 (six) months Active albuterol HFA (PROVENTIL HFA,VENTOLIN HFA,PROAIR HFA) 90 mcg/actuation inhaler Inhale 2 puffs every 6 (six) hours as needed for wheezing Active acidophilus-pec tin, citrus 100 million cell-10 mg capsule Take by mouth Activ e cholecalciferol (VITAMIN D-3) 2000 unit capsule 1 capsule (2,000 Units total) Active cyanocobalamin (Vitamin B-12) 1,000 mcg tabletIndicatio ns:Prevention of Vitamin B12 Deficiency Take 1 tablet (1,000 mcg total) by mouth daily Active omeprazole (PriLOSEC) 40 mg capsule 2 Active metoprolol tartrate (LOPRESSOR) 25 mg immediate release tablet TAKE 1 TABLET BY MOUTH TWICE DAILY 180 tablet 3 4 Active spironolactone (ALDACTONE) 25 mg tablet TAKE 1 TABLET(25 MG) BY MOUTH TWICE DAILY 180 tablet 3 4 Active furosemide (LASIX) 20 mg tabletIndicatio ns:Edema, lower extremity TAKE 1 TABLET(20 MG) BY MOUTH DAILY 90 tablet 1 4 Active Eliquis DVT-PE Treat 30D Start 5 mg (74 tabs) tablets,dose pack TAKE PER INSTRUCTIONS 4 Active Active Problems Problem Noted Date Diagnosed Date Morbid obesity with body mas s index (BMI) of 40.0 to 44.9 in adult 04/24/2017 History of prosthetic aortic valve replacement 0 10/12/2016 Malabsorption 12/27/2015 Aortic valve insufficiency 11/03/2015 Overview (08/10/2016): 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 Intra-abdominal abscess 09/17/2015 Open wound 06/14/2015 History of bariatric surgery 01/20/2015 Morbid obesity 01/08/2014 Encounters Date Type Department Care Team Description 05/22/2024 9:45 AM RUBBER DOWN Office Visit [facility] Cardiology [address] [place] [address] Brandon Riojas MD History of prosthetic aortic valve replacement (Primary Dx); Need for lipid screening from Last 3 Months Surgical History Surgery Date Site/Laterality Comments OTHER SURGICAL HISTORY gastric sleeve surgery OTHER SURGICAL HISTORY abdominal drain placement SECTION section HERNIA REPAIR Hernia repair OTHER SURGICAL HISTORY endocarditis: AVR ABSCESS CATHETER INJECTION 09/29/2015 N/A US SOFT TISSUE ABSCESS DRAIN 11/15/2015 N/A Medical History Medical History Date Comments Hx Other Medical Sleep Apnea, CP AP Hx Other Medical Obesity, Morbid Hypertension Hypertension Hx Other Medical morbid obesity; Comments: [facility] 11/03/2015 - Hx Other Medical cataracts; Comm ents: [facility] 11/03/2015 - Hx Other Medical recent abdomina l infection; Comments: [facility] 11/03/2015 - Hx Other Medical DVT; Comments: [facility] 11/03/2015 - Hx Other Medical aortic insuffic iency; Comments: [facility] 11/03/2015 - Hx Other Medical endocarditis; C omments: [facility] 11/18/2015 - Aortic stenosis History of prosthetic aortic valve replacement 11/2015 23 mm bovine pericardial alka ve replacement Family History Medical History Relation Name Comments Hypertension Father 2 Hypertension; Other Father 2 Cerebral Hemmor age; Cause of : Cerebral Hemmorage Relation Name Status Comments Father 1 Father 2 Social History Tobacco Use Types Packs/Day Years Used Date Smoking Tobacco: Never Smokeless Tobacco: Never Tobacco Cessation:Counseling Given: Not Answered Alcohol Use Standard Drinks/Week Comments No 0 (1 standard drink = 0.6 oz pur e alcohol) Comments Unknown Sex and Gender Information Value Date Recorded Sex Assigned at Not on file Legal Sex Female 8:55 PM RUBBER DOWN Gender Identity Not on file Sexual Orientation Not on file Obstetrics History Last Filed Vital Signs Vital Sign Reading Time Taken Comments Blood Pressure 120/62 05/22/2024 9:57 AM RUBBER DOWN Pulse 76 05/22/2024 9:57 AM RUBBER DOWN Temperature - - Respiratory Rate 97 11/23/2022 9:11 AM CDT Oxygen Saturation 97% 05/22/2024 9:57 AM RUBBER DOWN Inhaled Oxygen Concentration - - Weight 147.4 kg (325 lb) 05/22/2024 9:57 AM RUBBER DOWN Height 172.7 cm (5' 8 ) 05/22/2024 9:57 AM RUBBER DOWN Body Mass Index 49.42 05/22/2024 9:57 AM RUBBER DOWN Plan of Treatment Health Maintenance Due Date Last Done Comments Breast Cancer Screening-Mammogram 1958 Colon Cancer Screening-Colonoscopy 1958 Depression Screening 1958 Fall Risk Assessment 1958 Hepatitis C Screening 1958 DTaP/Tdap/Td Vaccine (1 - Tdap) 1969 Hepatitis B Screening 1976 Zoster Vaccine (1 of 2) 2008 Pneumococcal vaccine 65+ (2 of 2 - PCV) 01/21/2017 01/22/2016 Well Visit 65+ 2023 Osteoporosis Screening-Bone Density Scan 03/09/2023 03/09/2021, 03/09/2021, 10/29/2018, Additional history exists Influenza Vaccine (Season Ended) 2025 01/28/20 19, 01/26/2018 Procedures Procedure Name Priority Date/Time Associated Diagnosis Comments POCT LIPID PANEL Routine 05/22/2024 11:5 0 AM RUBBER DOWN Need for lipid screening from Last 3 Months Results * POCT lipid panel (05/22/2024 11:50 AM RUBBER DOWN) Cholesterol, POC 205 mg/dL Comment:GLU = 98 HDL, POC 61 mg/dL Triglycerides, POC 92 mg/dL LDL Cholesterol POC 125 mg/dL Chol/HDL Ratio, POC 2.0 Non-HDL Cholesterol, POC 143 mg/dL Cholesterol Total, POC 205 mg/dL Capillary blood 05/22/2024 1 1:50 AM RUBBER DOWN Brandon Riojas MD POINT OF CARE TEST ORDER CAM Final Result from Last [address] [place] [address] [place] [address] MEDICARE [facility] MCR SUPPLEMENT [place] [id number] MEDICARE Care Teams Employee Counselor Relationship Specialty Start Date End Date Velma Patterson MD PCP - General Family Medicine 05/27/20
--- OUTSIDE RECORDS SUMMARY | 2024-08-12 11:14 | XMS_ITS | Encounter Summary ---
Author Organization [facility] Address [address] [place] [address] Care Team Providers Care Jig Operator Name Role Phone Velma Patterson MD Primary Care Provider [phone] Encounter Details Date Type Department Care Team (Late Contact Info) Description 11/06/2017 Chart Note [facility] Radiation Therapy [address] [place] [address] [place] [address] [place] [address] Social History Tobacco Use Types [...] 08/19/2024 4:00 PM CDT Telephone Check Up [facility] Oncology and Hematology - [place] [address] [place] [address] Memo Adams MD [address] [facility] [address] [place] [address] 02/02/2025 11:30 AM CDT Office Visit [facility] Oncology and Hematology - [place] [address] [place] [address] Memo Adams MD [address] [facility] [address] [place] [address] documented as of this encounter Visit Diagnoses Not on filedocumented in this encounter Care Teams Jig Operator Relationship Specialty Start Date End Date Velma Patterson MD [address] [place] [address] PCP - General Family Practice 04/22/20 documented as of this encounter
--- OUTSIDE RECORDS SUMMARY | 2024-08-12 11:14 | XMS_ITS | Clinical Summary ---
Author Organization [facility] Address [address] [place] [address] Phone Care Team Providers Care Dinkey Locomotive Operator Name Role Phone Belén Oliveira MD Primary [...] s:Invasive ductal carcinoma of breast, stage 1, right,Invasive ductal carcinoma of breast, stage 2, left TAKE 1 TABLET BY MOUTH DAILY 90 [...] Comments Blood Pressure 150/71 04/18/2019 1:39 PM WIRE BORDER ASSEMBLER Pulse 58 04/18/2019 1:39 PM WIRE BORDER ASSEMBLER Temperature 36.2 C (97.2 F) 04/18/2019 1:39 PM WIRE BORDER ASSEMBLER Respiratory Rate 20 04/18/2019 1:39 PM WIRE BORDER ASSEMBLER Oxygen Saturation 99% 04/18/2019 1:39 PM WIRE BORDER ASSEMBLER Inhaled Oxygen Concentration - - Weight 149.5 kg (329 lb 9.6 oz) 04/18/2019 1:39 PM WIRE BORDER ASSEMBLER Height 172.7 cm (5' 8 ) 04/18/2019 1:39 PM WIRE BORDER ASSEMBLER Body Mass Index 50.12 04/18/2019 1:39 PM WIRE BORDER ASSEMBLER Plan of Treatment Health Maintenance Due Date Last Done Comments Hepatitis C Virus (HCV) Screening 1960 TdaP Immunization 1958 Zoster Immunization (1 of 2) 1977 Colonoscopy 2003 Colorectal Cancer Screening 2003 Cologuard [...] Procedure Name Priority Date/Time Associated Diagnosis Comments [facility] BONE DENSITOMETRY AXIAL SKELETON Routine 10/29/2018 7:46 AM CDT Osteopenia of both hips Invasive ductal carcinoma of breast, stage 1, right (HCC) Postmenopausal state [facility] MRI BREAST W/WO CONTRAST,BILATERAL Routine 10/29/2017 from Last 3 Months or Most Recently Relevant to Health Maintenance Results * [facility] BONE DENSITOMETRY AXIAL SKELETON (10/29/2018 7:46 AM CDT) Anatomical Region Laterality Modality BODY N/A Other 10/29/2018 8:19 AM CDT Impressions 10/29/2018 8:21 AM CDT IMPRESSION: 1. Lumbar spine correlates with normal [...] Narrative 10/29/2018 8:21 AM CDT EXAM DESCRIPTION: [facility] BONE DENSITOMETRY AXIAL SKELETON REASON FOR STUDY: 58 y/o year old F with given history of screening. Erp Project Manager/Model: Livevol (S/N [id number]) CLINICAL INFORMATION: Current height: 68.0 inches Maximum [...] Nic Ramirez M.D. GINI: GINI Report ID: [id number] Reading Location: [place] [address] Procedure Note Nic Ramirez MD - 10/29/2018 EXAM DESCRIPTION: [facility] BONE DENSITOMETRY AXIAL SKELETON REASON FOR STUDY: 58 y/o year old F with given history of screening. Erp Project Manager/Model: Livevol (S/N [id number]) CLINICAL INFORMATION: Current height: 68.0 inches Maximum [...] Nic Ramirez M.D. GINI: GINI Report ID: [id number] Reading Location: [id number] IMPRESSION: 1. Lumbar spine correlates with normal [...] MD IMG DEXA ORDERABLES Final Result * [facility] MRI BREAST W/WO CONTRAST,BILATERAL (10/29/2017) Anatomical Region Laterality Modality breast Bilateral Other Khloe Hartman DO IMG MR ORDERABLES Final Res ult from Last 3 Months or Most Recently Relevant to Health Maintenance Insurance [facility] SHARED french translator Care Teams Dinkey Locomotive Operator Relationship Specialty Start Date End Date Belén Oliveira MD [address] [place] [address] PCP - General Family Medicine 01/02/18
--- OUTSIDE RECORDS SUMMARY | 2024-08-12 11:14 | XMS_ITS | Encounter Summary ---
Author Organization [facility] Address [address] [place] [address] Phone Care Team Providers Care Pay Station Attendant Name Role Phone Belén Oliveira MD Primary Care [facility] Reason for Visit * Reason Comments Medication Refill Encounter Details Date Type Department Care Team (Late st Contact Info) Description 10/14/2019 Refill [facility] Medical Oncology [address] [place] [id number] Justin Aguiar MD [address] [place] [address] Medication Refill Social History Tobacco Use Types [...] ductal carcinoma of breast, stage 1, right Invasive ductal carcinoma of breast, stage 2, left documented in this encounter Care Teams Pay Station Attendant Relationship Specialty Start Date End Date Belén Oliveira MD [address] [place], [place] [id number] PCP - General Family Medicine 01/02/18 documented as of this encounter
--- OUTSIDE RECORDS SUMMARY | 2024-08-12 11:14 | XMS_ITS | Referral Summary ---
Author Organization [facility] [address] [facility] [address] Address [address] [place] [address] Care Team Providers Care T Rail Turner Name Role Phone Velma Patterson MD Primary Care Provider [phone] Encounters Date Type Department Care Team Description 05/22/2024 9:45 AM AIRFREIGHT LOADING SUPERVISOR Office Visit [facility] Cardiology [address] [place] [address] Brandon Riojas MD History of prosthetic aortic valve replacement (Primary Dx); Need for lipid screening from Last 3 Months Allergies Active Allergy Reactions Criticality Noted Date Comments Adhesive Other (See comments) Low 09/17/2018 Reaction: Other Erythromycin Diarrhea Low Penicillins Hives Medium Medications aspirin 81 mg chewable tablet chew 1 tablet by oral route every day 0 0 03/23/ 6 Active melatonin 10 mg tablet extended [...] of bariatric surgery 01/20/2015 Morbid obesity 01/08/2014 Social History Tobacco Use Types Packs/Day Years Used Date Smoking Tobacco: Never Smokeless Tobacco: Never Tobacco Cessation:Counseling Given: Not Answered Alcohol Use Standard Drinks/Week Comments No 0 (1 standard drink = 0.6 oz pur e alcohol) Comments Unknown Sex and Gender Information Value Date Recorded Sex Assigned at Not on file Legal Sex Female 8:55 PM AIRFREIGHT LOADING SUPERVISOR Gender Identity Not on file Sexual Orientation Not on file Last Filed Vital Signs Vital Sign Reading Time Taken Comments Blood Pressure 120/62 05/22/2024 9:57 AM AIRFREIGHT LOADING SUPERVISOR Pulse 76 05/22/2024 9:57 AM AIRFREIGHT LOADING SUPERVISOR Temperature - - Respiratory Rate 97 11/23/2022 9:11 AM CDT Oxygen Saturation 97% 05/22/2024 9:57 AM AIRFREIGHT LOADING SUPERVISOR Inhaled Oxygen Concentration - - Weight 147.4 kg (325 lb) 05/22/2024 9:57 AM AIRFREIGHT LOADING SUPERVISOR Height 172.7 cm (5' 8 ) 05/22/2024 9:57 AM AIRFREIGHT LOADING SUPERVISOR Body Mass Index 49.42 05/22/2024 9:57 AM AIRFREIGHT LOADING SUPERVISOR Plan of Treatment Not on file Procedures Procedure Name Priority Date/Time Associated Diagnosis Comments POCT LIPID PANEL Routine 05/22/2024 11:5 0 AM AIRFREIGHT LOADING SUPERVISOR Need for lipid screening from Last 3 Months Results * POCT lipid panel (05/22/2024 11:50 AM AIRFREIGHT LOADING SUPERVISOR) Cholesterol, POC 205 mg/dL Comment:GLU = 98 HDL, POC 61 mg/dL Triglycerides, POC 92 mg/dL LDL Cholesterol POC 125 mg/dL Chol/HDL Ratio, POC 2.0 Non-HDL Cholesterol, POC 143 mg/dL Cholesterol Total, POC 205 mg/dL Capillary blood 05/22/2024 1 1:50 AM AIRFREIGHT LOADING SUPERVISOR us Brandon Riojas MD POINT OF CARE TEST ORDER CAM Final Result from Last 3 [place] [address] MEDICARE [facility] SUPPLEMENT [place]AL [place] [id number] MEDICARE [facility] Address: [address] [address] [place] [address] [place] [address] Care Teams T Rail Turner Relationship Specialty Start Date End Date Velma Patterson MD PCP - General Family Medicine 05/27/20
== END 2024-08-12 10:05 | disposition home or self-care (01) ==
PROVIDERS: PCP Family Medicine; Visit Provider Internal Medicine Hematology & Oncology
DX: I82.4Y2 Acute embolism and thrombosis of unspecified deep veins of left proximal lower extremity (principal); M79.89 Other specified soft tissue disorders
CPT/HCPCS: 93971

== ENCOUNTER 2025-03-03 08:52 | Outpatient (CLI) | payer MEDICARE, SELFPAY ==
--- OUTSIDE RECORDS SUMMARY | 2025-03-03 09:22 | XMS_ITS | Encounter Summary ---
Author Organization [facility] Address [address] [place] [address] Care Team Providers Care Claim Attorney Name Role Phone Velma Patterson MD Primary Care Provider Encounter Details Date Type Department Care Team (Late Contact Info) Description 11/06/2017 Chart Note [facility] Radiation Therapy [address] [place] [address] [place] [address] [place] [address] Social History Tobacco Use Types [...] Care Team (Late st Contact Info) Description 03/16/2025 1:00 PM SHEET METAL INSTALLER Office Visit [facility] Oncology and Hematology - [place] [address] [place] [address] Memo Adams MD [address] [facility] [address] [place] [address] documented as of this encounter Visit Diagnoses Not on filedocumented in this encounter Care Teams Claim Attorney Relationship Specialty Start Date End Date Velma Patterson MD [address] [place] [address] PCP - General Family Practice 04/22/20 documented as of this encounter
--- OUTSIDE RECORDS SUMMARY | 2025-03-03 09:22 | XMS_ITS | Clinical Summary ---
Author Organization [facility] Address [address] [place] [address] Care Team Providers Care Radio Script Writer Name Role Phone Velma Patterson MD Primary Care Provider [phone] Allergies Active Allergy Reactions Criticality Noted Date [...] mouth daily. 90 Tablet 4 3 Active folic acid (FOLVITE) 1 mg tablet Take 1 Tablet (1 mg) by mouth daily. 60 Tablet 2 5 Active Eliquis 5 mg tablet Take 1 Tablet (5 mg) by mouth 2 times daily. 60 Tablet 2 5 Active Active Problems Problem Noted Date [...] Encounters Date Type Department Care Team Description 02/03/2025 Orders Only [facility] Oncology and Hematology - [place] [address] [place] [address] Memo Adams MD 01/20/2025 External Device Data STL ABSTRACTION Provider, Abstract 01/06/2025 External Device Data STL ABSTRACTION Provider, Abstract 12/24/2024 Refill [facility] Oncology and Hematology - [place] [address] [place] [address] Memo Adams MD 12/23/2024 Refill [facility] Oncology and Hematology - [place] [address] [place] [address] Memo Adams MD 12/16/2024 External Device Data STL ABSTRACTION Provider, Abstract 12/09/2024 Refill [facility] Oncology and Hematology [place] [address] [place] [address] Memo Adams MD from Last 3 Months Family History Medical [...] Sign Reading Time Taken Comments Blood Pressure 125/73 09/10/2024 1:05 PM CDT Pulse 79 09/10/2024 1:02 PM CDT Temperature 36.8 C (98.2 F) 09/10/2024 1:02 PM CDT Respiratory Rate 15 09/10/2024 1:02 PM CDT Oxygen Saturation 98% 09/10/2024 1:02 PM CDT Inhaled Oxygen Concentration - - Weight 141.8 kg (312 lb 9.6 oz) 09/10/2024 1:02 PM CDT Height 172.7 cm (5' 8) 01/10/2022 9:17 AM CDT Body Mass Index 47.53 01/10/2022 9:17 AM CDT Plan of Treatment Upcoming Encounters Date Type Department Care Team (Late st Contact Info) Description 03/16/2025 1:00 PM CINEMA OR THEATRE MANAGER Office Visit [facility] Oncology and Hematology - [place] [address] [place] [address] Memo Adams MD [address] [place] [address] Health Maintenance Due Date Last Done Comments Pre-Diabetes and Diabetes Screening 1958 DTAP/TDAP/TD VACCINES (1 - Tdap) 1977 COLORECTAL SCREENING 2003 Colorectal Cancer Screening 2003 FIT-DNA Q 3 years 2003 FIT/FOBT Q 1 year 2003 Flex Sig/CT Colonography Q 5 years 2003 PNEUMOCOCCAL VACCINE 50+ YEA RS (1 of 1 - PCV) 2008 RSV VACCINE (60+ or ) (1 - Risk 50-74 years 1-dose series) 2008 ZOSTER VACCINE (1 of 2) 2008 INFLUENZA VACCINE (#1) 2024 OSTEOPOROSIS SCREENING 03/09/2026 , 03/09/2021, 10/29/2018, Additional history exists Procedures Procedure Name Priority Date/Time Associated Diagnosis Comments COMPREHENSIVE METABOLIC PANEL Routine 02/02/2025 1:03 PM CDT XR DEXA BONE DENSITY AXIAL 1 OR MORE SITES Routine 03/09/2021 Osteoporosis, unspecified osteoporosis type, unspecified pathological fracture presence from Last 3 Months or Most Recently Relevant to Health Maintenance Results * COMPREHENSIVE METABOLIC PANEL (02/02/2025 1:03 PM CDT) Blood us Memo Adams MD CHEMISTRY ORDERABLES Final Resu lt * (ABNORMAL) XR DEXA BONE DENSITY AXIAL 1 OR MORE SITES (03/09/2021) Anatomical Region Laterality Modality Other us Memo Adams MD DIAGNOSTIC IMAGING ORDERABLES F inal Result from Last 3 Months or Most Recently Relevant to Health [place] [address] MEDICARE PART A AND B [employer] [facility] [id number] [place] [address] MEDICARE PART A AND B Care Teams Radio Script Writer Relationship Specialty Start Date End Date Velma Patterson MD [address] [place] [address] PCP - General Family Practice 04/22/20
--- OUTSIDE RECORDS SUMMARY | 2025-03-03 09:23 | XMS_ITS | Clinical Summary ---
Author Organization [facility] Address [address] [place] [address] Care Team Providers Care Contracting Executive Name Role Phone Mark Claros MD Primary Care Provider Source Comments [facility],non-owned Affiliates and Associated Physician Practices is amultiple site organization consisting of ambulatory clinics and hospital sitesin [place], [place], [place] and [place]. This disclosure is being madepursuant to the Care Everywhere program and may not contain all information available regarding this patient. Last updated 18.[facility] [employer] Social History Tobacco Use Types Packs/Day Years Used Date Smoking Tobacco: Never Assessed Comments Unknown Sex and Gender Information Value Date Recorded Sex Assigned at Not on file Legal Sex Female 6:26 AM LINEMAN Gender Identity Not on file Sexual Orientation [...] 2008 ZOSTER VACCINE (1 of 2) 2008 DEPRESSION SCREENING 05/07/2024 COVID-19 VACCINE (1 - 2023-2 5 season) 2025 INFLUENZA VACCINE (#1) 2025 Respiratory Syncytial Virus (RSV) Vaccine Pt: [...] on patient's age to complete this topic Insurance [employer] Care Teams Contracting Executive Relationship Specialty Start Date End Date Mark Claros MD [address] [place] [address] PCP - General 10/15/17
--- OUTSIDE RECORDS SUMMARY | 2025-03-03 09:23 | XMS_ITS | Clinical Summary ---
Author Organization [facility] [address] Address [address] [place] [address] Care Team Providers Care Statuary Painter Name Role Phone Velma Patterson MD Primary Care Provider [phone] Allergies Active Allergy Reactions Criticality Noted Date Comments Adhesive Other (See comments) Low 09/17/2018 Reaction: Other Erythromycin Diarrhea Low Penicillins Hives Medium Medications aspirin 81 mg chewable tablet chew 1 tablet by oral route every day 0 0 03/23/20 16 Active melatonin 10 mg tablet extended release Take 10 mg by mouth nightly as needed. Active FIBER CHOICE, INULIN, ORAL Take by mouth 2 times daily Active calcium carbonate-mary min D3 1,250mg (500mg elemental) - 200 units per tablet Take 1 tablet by mouth Active denosumab (PROLIA) 60 mg/mL syringe Inject 1 mL (60 mg total) under the skin every 6 (six) months Active albuterol HFA (PROVENTIL HFA,VENTOLIN HFA,PROAIR HFA) 90 mcg/actuation inhaler Inhale 2 puffs every 6 (six) hours as needed for wheezing Active acidophilus-pe ctin, citrus 100 million cell-10 mg capsule Take by mouth Active cholecalcifero l (VITAMIN D-3) 2000 unit capsule 1 capsule (2,000 Units total) Active cyanocobalamin (Vitamin B-12) 1,000 mcg tabletIndicati ons:Prevention of Vitamin B12 Deficiency Take 1 tablet (1,000 mcg total) by mouth daily Active omeprazole (PriLOSEC) 40 mg capsule 12/01/19 22 Active Eliquis DVT-PE Treat 30D Start 5 mg (74 tabs) tablets,dose pack TAKE PER INSTRUCTIONS 05/02/20 24 Active furosemide (LASIX) 20 mg tabletIndicati ons:Edema, lower extremity TAKE 1 TABLET(20 MG) BY MOUTH DAILY 90 tablet 2 10/03/19 25 Active folic acid (FOLVITE) 1 mg tablet Take 1 tablet (1,000 mcg total) by mouth daily Active spironolactone (ALDACTONE) 25 mg tablet TAKE 1 TABLET(25 MG) BY MOUTH TWICE DAILY 180 tablet 2 02/10/20 25 Active metoprolol tartrate (LOPRESSOR) 25 mg immediate release tablet TAKE 1 TABLET BY MOUTH TWICE DAILY 180 tablet 2 02/10/20 25 Active metoprolol tartrate (LOPRESSOR) 25 mg immediate release tablet TAKE 1 TABLET BY MOUTH TWICE DAILY 180 tablet 3 11/30/19 24 025 Discontinued spironolactone (ALDACTONE) 25 mg tablet TAKE 1 TABLET(25 MG) BY MOUTH TWICE DAILY 180 tablet 3 11/30/19 24 025 Discontinued Active Problems Problem Noted Date Diagnosed Date Morbid obesity with body mas s index (BMI) of 40.0 to 44.9 in adult 04/24/2017 History of prosthetic aortic valve replacement 0 10/12/2016 Malabsorption 12/27/2015 Aortic valve insufficiency 11/03/2015 Overview (08/10/2016): 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 Intra-abdominal abscess 09/17/2015 Open wound 06/14/2015 History of bariatric surgery 01/20/2015 Morbid obesity 01/08/2014 Surgical History Surgery Date Site/Laterality Comments OTHER [...] Hypertension Hx Other Medical morbid obesity; Comments: [facility] 11/03/2015 - Hx Other Medical cataracts; Comm ents: [facility] 11/03/2015 - Hx Other Medical recent abdomina l infection; Comments: [facility] 11/03/2015 - Hx Other Medical DVT; Comments: [facility] 11/03/2015 - Hx Other Medical aortic insuffic iency; Comments: [facility] 11/03/2015 - Hx Other Medical endocarditis; C omments: [facility] 11/18/2015 - Aortic stenosis History of prosthetic [...] on file Legal Sex Female 8:55 PM CALL CIRCUIT WORKER Gender Identity Not on file Sexual Orientation Not on file Obstetrics History Last Filed Vital Signs Vital Sign Reading Time Taken Comments Blood Pressure 138/82 11/27/2024 10:51 AM CDT Pulse 83 11/27/2024 10:51 AM CDT Temperature - - Respiratory Rate 97 11/23/2022 9:11 AM CDT Oxygen Saturation 98% 11/27/2024 10:51 AM CDT Inhaled Oxygen Concentration - - Weight 148.8 kg (328 lb) 11/27/2024 10:51 AM CDT Height 172.7 cm (5' 8) 11/27/2024 10:51 AM CDT Body Mass Index 49.87 11/27/2024 10:51 AM CDT Plan of Treatment Health Maintenance Due Date [...] 03/09/2021, 10/29/2018, Additional history exists Influenza Vaccine (#1) 2025 01/27/2019, [address] [facility] MEDICARE Care Teams Statuary Painter Relationship Specialty Start Date End Date Velma Patterson MD PCP - General Family Medicine 05/27/20
[2025-03-03 12:57] LABS: Hematocrit 40.0 % (37.0-47.0); Hemoglobin 12.8 g/dL (12.0-15.0); Immature Granulocyte Percent A 1.3 % (0-0.5); Lymphocytes Absolute Auto 1.61 K/mm3 (0.9-3.2); Mean Corpuscular HGB Conc 32.0 g/dl (32-36); Mean Corpuscular Hemoglobin 31.5 pg (26-34); Mean Corpuscular Volume 98.5 fl (80-100); Nucleated Red Blood Cells Absolute Auto 0.000 K/mm3 (0.0-0.012); Nucleated Red Blood Cells Perc 0.0 % (0.0-0.2); Platelet Count Result 234 k/mm3 (150-375); Red Blood Count 4.06 M/mm3 (4.2-5.4); White Blood Count 5.6 K/mm3 (4.5-10.0)
[2025-03-03 13:02] LABS: Iron 108 ug/dL (37-170)
[2025-03-03 13:08] LABS: Alanine Aminotransferase 18 U/L (6-35); Albumin Level 4.2 g/dL (3.5-5.1); Alkaline Phosphatase 67 U/L (38-126); Anion Gap 8 mmol/L (4-12); Aspartate Amino Transferase 52 U/L (14-36); Bilirubin,Total 1.0 mg/dL (0.2-1.3); Blood Urea Nitrogen 26 mg/dL (7-17); Calcium 8.2 mg/dL (8.4-10.2); Carbon Dioxide 26 mmol/L (22-30); Chloride 105 mmol/L (98-107); Cholesterol 241 mg/dL (0-200); Estimated Glomerular Filt Rate 49; Glucose 89 mg/dL (65-110); HDL Direct 53 mg/dL; Potassium 3.9 mmol/L (3.4-5.0); Sodium 139 mmol/L (137-145); Total Protein 7.3 g/dL (6.3-8.2); Triglycerides 106 mg/dL (<150)
[2025-03-03 13:11] LABS: Percent Iron Saturation 32 % (20-50)
[2025-03-03 13:25] LABS: Free T4 Free Thyroxine 1.19 ng/dL (0.78-2.19)
[2025-03-03 13:44] LABS: Thyroid Stimulating Hormone 1.150 uIU/mL (0.465-4.680)
[2025-03-03 13:51] LABS: Ferritin 20.30 ng/mL (11.1-264)
[2025-03-03 13:53] LABS: Hemoglobin A1C 5.0 % (<5.7)
[2025-03-03 14:22] LABS: Vitamin B12 > 1000.0 pg/mL (239-931)
== END 2025-03-03 08:53 | disposition home or self-care (01) ==
PROVIDERS: PCP Family Medicine Adolescent Medicine; Visit Provider Student in an Organized Health Care Education/Training Program
DX: R73.03 Prediabetes (principal); I12.9 Hypertensive chronic kidney disease with stage 1 through stage 4 chronic kidney disease, or unspecified chronic kidney disease; N18.30 Chronic kidney disease, stage 3 unspecified; R53.83 Other fatigue; E53.8 Deficiency of other specified B group vitamins; E55.9 Vitamin D deficiency, unspecified; Z98.84 Bariatric surgery status; Z95.2 Presence of prosthetic heart valve
CPT/HCPCS: 36415; 80053; 80061; 82306; 82607; 82728; 82746; 83036; 83540; 83550; 84439; 84443; 85025

== ENCOUNTER 2025-04-06 14:10 | Outpatient (CLI) | payer MEDICARE, SELFPAY ==
--- OUTSIDE RECORDS SUMMARY | 2025-04-06 15:10 | XMS_ITS | Encounter Summary ---
Author Organization [facility] Address [address] [place] [address] Care Team Providers Care Shipyard Helper Name Role Phone Velma Patterson MD Primary Care Provider [phone] Encounter Details Date Type Department Care Team (Late st Contact Info) Description 11/06/2017 Chart Note [facility] Radiation Therapy [address] [place] [address] [place] [address] [place] [address] Social History Tobacco Use Types [...] Care Team (Late st Contact Info) Description 04/21/2025 11:45 AM GALVANOMETER ASSEMBLER Office Visit [facility] Oncology and Hematology - [place] [address] [place] [address] Memo Adams MD [address] [facility] [address] [place] [address] documented as of this encounter Visit Diagnoses Not on filedocumented in this encounter Care Teams Shipyard Helper Relationship Specialty Start Date End Date Velma Patterson MD [address] [place] [address] PCP - General Family Practice 04/22/20 documented as of this encounter
--- OUTSIDE RECORDS SUMMARY | 2025-04-06 15:10 | XMS_ITS | Clinical Summary ---
Author Organization [facility] Address [address] [address] Care Team Providers Care Design Engineering Technician Name Role Phone Mark Claros MD Primary Care Provider Source Comments [facility],non-owned Affiliates and Associated Physician Practices is amultiple site organization consisting of ambulatory clinics and hospital sitesin [place], [place], [place] and [place]. This disclosure is being madepursuant to the Care Everywhere program and may not contain all information available regarding this patient. Last updated 18.[facility] [employer] Social History Tobacco Use Types Packs/Day Years Used Date Smoking Tobacco: Never Assessed Comments Unknown Sex and Gender Information Value Date Recorded Sex Assigned at Not on file Legal Sex Female 6:26 AM PEN RIDER Gender Identity Not on file Sexual Orientation [...] DEPRESSION SCREENING 05/07/2024 COVID-19 VACCINE (1 - 2024-2 6 season) 2025 INFLUENZA VACCINE (#1) 2025 Respiratory [...] patient's age to complete this topic Insurance [facility] [place] [address] Care Teams Design Engineering Technician Relationship Specialty Start Date End Date Mark Claros MD [address] [place] [address] PCP - General 10/15/17
--- OUTSIDE RECORDS SUMMARY | 2025-04-06 15:10 | XMS_ITS ---
Author Organization [facility] Address [address] [place] [address] Phone Care Team Providers Care Galley Cook Name Role Phone Belén Oliveira MD Primary [...]
--- OUTSIDE RECORDS SUMMARY | 2025-04-06 15:10 | XMS_ITS | Clinical Summary ---
Author Organization [facility] [address] Address [address] [place] [address] Care Team Providers Care Filter Tender Name Role Phone Velma Patterson MD Primary Care Provider [phone] Allergies Active Allergy Reactions Criticality Noted Date [...] omeprazole (PriLOSEC) 40 mg capsule 2 Active Eliquis DVT-PE Treat 30D Start 5 mg (74 tabs) tablets,dose pack TAKE PER INSTRUCTIONS 4 Active furosemide (LASIX) 20 mg tabletIndicatio ns:Edema, lower extremity TAKE 1 TABLET(20 MG) BY MOUTH DAILY 90 tablet 2 5 Active folic acid (FOLVITE) 1 mg tablet Take 1 tablet (1,000 mcg total) by mouth daily Active spironolactone (ALDACTONE) 25 mg tablet TAKE 1 TABLET(25 MG) BY MOUTH TWICE DAILY 180 tablet 2 5 Active metoprolol tartrate (LOPRESSOR) 25 mg immediate release tablet TAKE 1 TABLET BY MOUTH TWICE DAILY 180 tablet 2 5 Active Active Problems Problem Noted [...] Hypertension Hx Other Medical morbid obesity; Comments: [facility] 11/03/2015 - Hx Other Medical cataracts; Comm ents: [facility] 11/03/2015 - Hx Other Medical recent abdomina l infection; Comments: [facility] 11/03/2015 - Hx Other Medical DVT; Comments: [facility] 11/03/2015 - Hx Other Medical aortic insuffic iency; Comments: [facility] 11/03/2015 - Hx Other Medical endocarditis; [...] on file 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
--- OUTSIDE RECORDS SUMMARY | 2025-04-06 15:10 | XMS_ITS | Clinical Summary ---
Author Organization [facility] Address [address] [place] [address] Care Team Providers Care Mess Attendant Name Role Phone Velma Patterson MD Primary Care Provider [phone] Allergies Active Allergy Reactions Criticality Noted Date Comments Adhesive Other (See Comments) Low 09/17/2018 Reaction: Other Erythromycin Diarrhea Low Penicillins Anaphylaxis,Hives High 10/26/2017 Unclassified Drug Rash Low 01/02/2018 Medications aspirin (SUKUMAR CHEWABLE) 81 mg Tablet, Chewable 81 mg. 03/23/20 16 Active melatonin 10 mg Tablet Sustained Release Take 10 mg by mouth. Active spironolactone (ALDACTONE) 25 mg tablet Take 25 mg by mouth. 09/21/19 18 Active FIBER CHOICE ORAL Take by mouth 2 times daily. Active calcium-cholec alciferol (OS-GRIS 500+D) 500 mg(1,250mg) -200 unit tablet Take 1 Tablet by mouth 2 times daily with meals. Active metoprolol tartrate (LOPRESSOR) 25 mg tablet TAKE 1 TABLET BY MOUTH TWICE DAILY 12/14/19 18 Active multivitamin (DAILY-BILL) tablet take 1 by Oral route once 08/29/19 14 Active triamcinolone acetonide (KENALOG) 0.1 % Cream APPLY BID PRN TO RASH 02/18/20 20 Active albuterol HFA 90 mcg inhaler INHALE 1 PUFF PO Q 4 H PRN 02/18/20 20 Active denosumab (PROLIA) 60 mg/mL Syringe Inject 60 mg by subcutaneous injection. Active acidophilus-pe ctin, citrus 100 million cell-10 mg Capsule Take by mouth. Activ e omeprazole (PriLOSEC) 10 mg Capsule, Delayed Release(E.C.) Take 10 mg by mouth daily. Active furosemide (LASIX) 20 mg tablet Take 20 mg by mouth daily. Active letrozole (FEMARA) 2.5 mg tabletIndicati ons:Malignant neoplasm of upper-outer quadrant of left breast in female, estrogen receptor positive (CMS/HCC) Take 1 Tablet (2.5 mg) by mouth daily. 90 Tablet 4 08/03/19 23 Active Eliquis 5 mg tablet Take 1 Tablet (5 mg) by mouth 2 times daily. 60 Tablet 2 12/24/19 25 Active folic acid (FOLVITE) 1 mg tablet TAKE 1 TABLET BY MOUTH EVERY DAY 60 Tablet 2 03/23/20 25 Active folic acid (FOLVITE) 1 mg tablet Take 1 Tablet (1 mg) by mouth daily. 60 Tablet 2 09/11/19 25 025 Discontinued Active Problems Problem Noted Date [...] Encounters Date Type Department Care Team Description 03/26/2025 Abstract [facility] Oncology and Hematology - [place] [address] [place] [address] Memo Adams MD 03/24/2025 External Device Data STL ABSTRACTION Provider, Abstract 03/21/2025 Refill [facility] Oncology and Hematology [facility] [address] [place] [address] Memo Adams MD 03/20/2025 Telephone [facility] Oncology and Hematology [facility] [address] [place] [address] Susannah Harris MD Surgical Clearance 03/20/2025 Telephone [facility] Oncology and Hematology [facility] [address] [place] [address] Susannah Harris MD Medication Question (Question concerning anticoagulation) 02/03/2025 Orders Only [facility] Oncology and Hematology [facility] [address] [place] [address] Memo Adams MD 01/20/2025 External Device Data [...] st Contact Info) Description 04/21/2025 11:45 AM CASE THERAPIST Office Visit [facility] Oncology and Hematology - [place] [address] [place] [address] Memo Adams MD [address] [facility] [address] [place] [address] Health Maintenance Due Date Last Done Comments Pre-Diabetes and Diabetes Screening 1958 DTAP/TDAP/TD VACCINES (1 - Tdap) 1977 Traditional Medicare (ACO) A nnual Wellness Visit 1977 COLORECTAL SCREENING 2003 Colorectal Cancer Screening [...] Recently Relevant to Health Maintenance [place] [address] MEDICARE PART A AND B [employer] [id number] [place] [address] MEDICARE PART A AND B Care Teams Mess Attendant Relationship Specialty Start Date End Date Velma Patterson MD [address] [place] [address] PCP - General Family Practice 04/22/20
--- OUTSIDE RECORDS SUMMARY | 2025-04-06 15:10 | XMS_ITS | Clinical Summary ---
Author Organization [facility] Address [address] [place] [address] Phone Care Team Providers Care Agency Operator Name Role Phone Belén Oliveira MD [...] Comments Blood Pressure 150/71 04/18/2019 1:39 PM [employer] Pulse 58 04/18/2019 1:39 PM [employer] Temperature 36.2 C (97.2 F) 04/18/2019 1:39 PM [employer] Respiratory Rate 20 04/18/2019 1:39 PM [employer] Oxygen Saturation 99% 04/18/2019 1:39 PM [employer] Inhaled Oxygen Concentration - - Weight 149.5 kg (329 lb 9.6 oz) 04/18/2019 1:39 PM [employer] Height 172.7 cm (5' 8) 04/18/2019 1:39 PM [employer] Body Mass Index 50.12 04/18/2019 1:39 PM [employer] Plan of Treatment Health Maintenance Due Date Last Done Comments Hepatitis C Virus (HCV) Screening 1960 TdaP Immunization 1960 Zoster Immunization (1 of 2) 1977 Cologuard 2003 Colonoscopy 2003 Colorectal Cancer Screening 2003 Immunochemical Fecal Occult Blood 2003 Respiratory Syncytial Virus (RSV) Immunization (Adult) (1 - Risk 50-74 years 1-dose series) 2008 Pneumococcal Immunization (50+ years) (2 of 2 - PCV) 01/21/2017 01/22/2016 DEXA Bone Density 03/09/2023 03/09/2021, , 09/24/2017 Influenza Immunization (#1) 2025 SARS-COV-2 Immunization (2024- season) 2025 08/16/2021, 03/04/2021, 08/04/2020, Additional history exists Pneumococcal Immunization Combined Discontinued 01/22/2016 Mammogram Unilateral Discontinued 10/29/2017, 10/30/19 18 Hepatitis B Immunization Aged Out No longer eligible based on patient's age to complete this topic Human Papillomavirus (HPV) Immunization Aged Out No longer eligible based on patient's age to complete this topic Meningococcal Immunization (ACWY) Aged Out No longer eligible based on patient's age to complete this topic Rotavirus Immunization Aged Out No lo nger eligible based on patient's age to complete this topic Procedures Procedure Name Priority Date/Time Associated Diagnosis Comments [facility] BONE DENSITOMETRY AXIAL SKELETON Routine 10/29/2018 7:46 AM CDT Osteopenia of both hips Invasive ductal carcinoma of breast, stage 1, right (HCC) Postmenopausal state [facility] MRI BREAST W/WO CONTRAST,BILATERAL Routine 10/29/2017 from Last 3 Months or Most Recently Relevant to Health Maintenance Results * [facility] BONE DENSITOMETRY AXIAL SKELETON (10/29/2018 7:46 AM [...] Narrative 10/29/2018 8:21 AM CDT EXAM DESCRIPTION: [facility] BONE DENSITOMETRY AXIAL SKELETON REASON FOR STUDY: 58 y/o year old F with given history of screening. [employer] Superintendent/Model: [employer] (S/N [id number]) CLINICAL INFORMATION: Current height: 68.0 inches Maximum [...] Nic Ramirez M.D. GINI: GINI Report ID: [id number] Reading Location: [place] [id number] Procedure Note Nic Ramirez MD - 10/29/2018 EXAM DESCRIPTION: [facility] BONE DENSITOMETRY AXIAL SKELETON REASON FOR STUDY: 58 y/o year old F with given history of screening. [employer] Superintendent/Model: [employer] (S/N [id number]) CLINICAL INFORMATION: Current height: 68.0 inches Maximum [...] Nic Ramirez M.D. GINI: GINI Report ID: [id number] Reading Location: [id number] IMPRESSION: 1. 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
== END 2025-04-06 14:11 | disposition home or self-care (01) ==
PROVIDERS: PCP Family Medicine Adolescent Medicine; Visit Provider Internal Medicine Hematology & Oncology
DX: I82.4Y2 Acute embolism and thrombosis of unspecified deep veins of left proximal lower extremity (principal)
CPT/HCPCS: 81291; 83090